=== PATIENT | male | born 1970 | race Caucasian/White ===

== ENCOUNTER 2016-12-20 13:33 | Inpatient (IN) | payer OTHER ==
[2016-12-20 16:32] VITALS: BMI 19.5
--- NOTE | 2016-12-20 19:35 | HP ---
CIWA Score - CIWA Score Nausea/Vomitin Muscle Tremors: 3 Anxiety: 3 Agitation: 3 Paroxysmal Sweats: 2 Orientation: 0-Oriented Tacttile Disturbances: 2-Mild Itch/Numbness/Burn Auditory Disturbances: 2-Mild Harshness/Frighten Visual Disturbances: 2-Mild Sensitivity Headache: 2-Mild CIWA-Ar Total Score: 22 Admission ROS BHS - HPI Chief Complaint: i am here to get better from alcohol and maintain sobriety Allergies/Adverse Reactions: Allergies Allergy/AdvReac Type Severity Reaction Status Date / Time phenytoin Allergy Intermediate Rash Verified 12/20/16 18:33 History of Present Illness: this 46 years old male with alcohol dependence,seeking detox,last treatment [facility]15 to 10/25/15,rehab form 11/22/15 to 12/19/16 nicotine dependence fell off the ladder ,severe spinal cord from c1 to c6,incomplete quadriplegia in 07/03/13 ambulation with own walker hepatitis c mmtp 80 mgs/day ,lat medicated today longest period of sobriety 2 years depression and insomnia Exam Limitations: No Limitations - Ebola screening Have you been sick,other than usual withdrawal symptoms: No - Review of Systems Constitutional: Loss of Appetite, Malaise, Night Sweats, Changes in sleep, Weakness EENT: reports: Tearing, Nose Congestion Respiratory: reports: No Symptoms reported Cardiac: reports: No Symptoms Reported GI: reports: Nausea, Poor Appetite, Abdominal cramping : reports: Incontinence Musculoskeletal: reports: Back Pain, Muscle Pain Integumentary: reports: Dryness Neuro: reports: Headache, Tremors Endocrine: reports: No Symptoms Reported Hematology: reports: No Symptoms Reported Psychiatric: reports: No Sypmtoms Reported (insomnia), Judgement Intact, Mood/ Affect Appropiate, Depressed Patient History - Patient Medical History Hx Anemia: No Hx Asthma: No Hx Chronic Obstructive Pulmonary Disease (COPD): No Hx Cancer: No Hx Cardiac Disorders: No Hx Congestive Heart Failure: No Hx Hypertension: No Hx Hypercholesterolemia: No Hx Pacemaker: No HX Cerebrovascular Accident: No Hx Seizures: Yes (last ) Hx Dementia: No Hx Diabetes: No Hx Gastrointestinal Disorders: No Hx Liver Disease: No Hx Genitourinary Disorders: No Hx Sexually Transmitted Disorders: No Hx Renal Disease (ESRD): No Hx Thyroid Disease: No Hx Human Immunodeficiency Virus (HIV): No (NEGATIVE HX last 2015 ) Hx Hepatitis C: Yes Hx Depression: Yes Hx Suicide Attempt: No Hx Bipolar Disorder: No Hx Schizophrenia: No Other Medical History: insomnia,no suicidal,no homicidal - Patient Surgical History Past Surgical History: Yes Hx Neurologic Surgery: Yes (neck in 2013) Hx Cataract Extraction: No Hx Cardiac Surgery: No Hx Lung Surgery: No Hx Breast Surgery: No Hx Breast Biopsy: No Hx Abdominal Surgery: Yes ([place]) Hx Appendectomy: No Hx Cholecystectomy: No Hx Genitourinary Surgery: No Hx Section: No Hx Orthopedic Surgery: Yes (RIGHT KNEE DUE TO TORN MENISCUS IN 2011) Other Surgical History: Sx R knee meniscus repair 7 wks ago. Anesthesia Reaction: No - PPD History Previous Implant?: Yes Documented Results: Negative w/o proof Implanted On Prior R Admission?: Yes Date: 11/24/15 Results: 0 mm PPD to be Administered?: Yes - Smoking Cessation Smoking history: Current every day smoker Have you smoked in the past 12 months: Yes Aproximately how many cigarettes per day: 15 Cigars Per Day: 0 Hx Chewing Tobacco Use: No Initiated information on smoking cessation: No 'Breaking Loose' booklet given: 12/20/16 - Substance & Tx. History Hx Alcohol Use: Yes Hx Substance Use: Yes Substance Use Type: Alcohol, Cocaine Hx Substance Use Treatment: Yes ([facility] to 10/25/15 ,rhab from 11/22/15 to 12/20/15) - Substances Abused Alcohol Route: Oral Frequency: Daily Amount used: liquor- 1 pint, beer- 2-24oz Age of first use: 8 Date of Last Use: 12/20/16 Cocaine Route: Inhalation Frequency: 1-3 times last 30 days Amount used: 50$ Age of first use: 34 Date of Last Use: 12/16/16 Family Disease History - Family Disease History Family Disease History: Diabetes: Father, Other: Mother (HTN) Admission Physical Exam S - Vital Signs Vital Signs: Vital Signs - 24 hr 12/20/16 16:31 Temperature 97.8 F Pulse Rate 83 Respiratory 18 Rate Blood Pressure 105/60 - Physical General Appearance: Yes: Moderate Distress, Tremorous, Irritable, Anxious HEENTM: Yes: Hearing grossly Normal, Normal ENT Inspection, JENNIFER, Pharynx Normal Respiratory: Yes: Lungs Clear, Normal Breath Sounds, No Respiratory Distress Neck: Yes: Supple (scar in posterior of neck right anterior), Trachea in good position, Other Breast: Yes: Within Normal Limits Cardiology: Yes: Regular Rhythm, Regular Rate, S1, S2, Edema Abdominal: Yes: Within Normal Limits, Normal Bowel Sounds, Non Tender, Flat, Soft, Surgical Scar Genitourinary: Yes: Incontinient Back: Yes: Muscle Spasm Musculoskeletal: Yes: Back pain, Muscle Pain Extremities: Yes: Tremors (partial quadriplegia ambulatiion with walker) Neurological: Yes: Alert (partial qurdriplegia ambulation with walker) Integumentary: Yes: Dry Lymphatic: Yes: Within Normal Limits - Diagnostic (1) Alcohol dependence with uncomplicated withdrawal Current Visit: No Status: Acute (2) Cocaine dependence with withdrawal Current Visit: No Status: Acute (3) Methadone maintenance therapy patient Current Visit: No Status: Acute (4) 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 Current Visit: No Status: Chronic (5) Incontinence Current Visit: No Status: Chronic (6) Nicotine dependence Current Visit: No Status: Chronic Qualifiers: Nicotine product type: cigarettes Substance use status: uncomplicated Qualified Code(s): F17.210 - Nicotine dependence, cigarettes, uncomplicated (7) Seizure disorder Current Visit: No Status: Chronic Comment: on gabapentin (8) Walker as ambulation aid Current Visit: Yes Status: Acute Cleared for Admission [facility] - Detox or Rehab [facility] Level of Care: Medically Managed Detox Regimen/Protocol: Librium [facility] Breath Alcohol Content Breath Alcohol Content: 0.214 Urine Drug Screen - Results Drug Screen Negative: No Urine Drug Screen Results: EMELINA-Cocaine, MTD-Methadone
[2016-12-20] MEDS ORDERED: ACETAMINOPHEN 325 MG TABLET (FP) PO PRN (20:02)
[2016-12-20] MEDS ORDERED: LOPERAMIDE HCL 2 MG CAPSULE PO PRN (20:02)
[2016-12-20] MEDS ORDERED: chlordiazePOXIDE HCL 25 MG CAPSULE PO ONE (20:02)
[2016-12-20] MEDS ORDERED: chlordiazePOXIDE HCL 25 MG CAPSULE PO PRN (20:02)
[2016-12-20] MEDS ORDERED: NICOTINE POLACRILEX 2 MG GUM BUC PRN (20:02)
[2016-12-20] MEDS ORDERED: IBUPROFEN 400 MG TABLET (FP) PO PRN (20:02)
[2016-12-20] MEDS ORDERED: guaiFENesin/D-METHORPHAN HB 10 ML UNIT-DOSE CUPS PO PRN (20:02)
[2016-12-20] MEDS ORDERED: diphenhydrAMINE HCL 50 MG CAPSULE PO PRN (20:02)
[2016-12-20] MEDS ORDERED: P-EPHED 60MG/TRIPROLIDI 2.5MG TABLET PO PRN (20:02)
[2016-12-20] MEDS ORDERED: MAGNESIUM CITRATE 300 ML BOTTLE PO PRN (20:02)
[2016-12-20] MEDS ORDERED: MENTHOL/PHENOL 1 EACH UD MM PRN (20:02)
[2016-12-20] MEDS ORDERED: MAGNESIUM HYDROX 2400MG/30ML ORAL SUSPENSION 30 ML CUP PO PRN (20:02)
[2016-12-20] MEDS ORDERED: hydrOXYzine PAMOATE 25 MG CAPSULE (FP) PO PRN (20:02)
[2016-12-20] MEDS ORDERED: MAG HYDROX/AL HYDROX/SIMETH 30 ML UNIT-DOSE CUP PO PRN (20:02)
[2016-12-20] MEDS: NICOTINE 21 MG/24 HOURS TOPICAL PATCH TD SCH (21:00)
[2016-12-20] MEDS: GABAPENTIN 300 MG CAPSULE (FP) PO SCH (22:48)
[2016-12-20] MEDS: THIAMINE HCL 100 MG TABLET (FP) PO SCH (22:48)
[2016-12-20] MEDS: chlordiazePOXIDE HCL 25 MG CAPSULE PO SCH (22:49)
[2016-12-20] MEDS: DOCUSATE SODIUM 100 MG CAPSULE (FP) PO SCH (22:49)
[2016-12-20] MEDS: BACLOFEN 10 MG TABLET (FP) PO SCH (22:55)
[2016-12-21 01:41] LABS: URINE APPEARANCE CLEAR; URINE BILIRUBIN NEGATIVE (NEGATIVE); URINE BLOOD NEGATIVE (NEGATIVE); URINE COLOR COLORLESS; URINE GLUCOSE (UA) NEGATIVE (NEGATIVE); URINE KETONE NEGATIVE (NEGATIVE); URINE LEUK ESTERASE NEGATIVE (NEGATIVE); URINE NITRITE NEGATIVE (NEGATIVE); URINE PROTEIN NEGATIVE (NEGATIVE); URINE UROBILINOGEN NEGATIVE mg/dL (0.2-1.0)
[2016-12-21] MEDS: chlordiazePOXIDE HCL 25 MG CAPSULE PO SCH ×4 (06:32→22:25)
[2016-12-21] MEDS: DOCUSATE SODIUM 100 MG CAPSULE (FP) PO SCH ×3 (06:32→22:25)
[2016-12-21] MEDS: GABAPENTIN 300 MG CAPSULE (FP) PO SCH ×3 (06:33→22:25)
[2016-12-21] MEDS: FERROUS SO4 325 MG TABLET (FP) PO SCH ×3 (08:28→17:22)
[2016-12-21 10:39] LABS: MCH 35.5 pg (25.7-33.7); MCHC 35.5 g/dl (32.0-35.9); MEAN PLT VOLUME 8.6 fl (7.5-11.1); PLATELET COUNT 161 K/MM3 (134-434); RDW 14.9 % (11.9-15.9); WHITE BLOOD COUNT 4.4 K/mm3 (4.0-10.0)
[2016-12-21] MEDS: BACLOFEN 10 MG TABLET (FP) PO SCH ×2 (10:40→22:25)
[2016-12-21] MEDS: NICOTINE 21 MG/24 HOURS TOPICAL PATCH TD SCH (10:42)
[2016-12-21] MEDS: PRENATAL VITAMINS W/ FOLIC ACID TABLET (FP) PO SCH (10:42)
[2016-12-21 10:44] LABS: ALBUMIN 2.8 g/dl (3.4-5.0); ANION GAP 6 (8-16); BILIRUBIN,TOTAL 0.8 mg/dL (0.2-1.0); CALCIUM 8.2 mg/dL (8.5-10.1); CO2 29 mmol/L (21-32); CREATININE 0.5 mg/dL (0.7-1.3); GLUCOSE,RANDOM 93 mg/dL (74-106); SGOT/AST 33 U/L (15-37); SGPT/ALT 20 U/L (12-78)
[2016-12-21 10:45] LABS: ALK PHOS 99 U/L (45-117)
[2016-12-21] MEDS ORDERED: METHADONE HCL 40 MG DISPERSABLE TABLET PO ONE (10:45)
--- NOTE | 2016-12-21 17:22 | PN ---
[facility] CIWA - CIWA Score Nausea/Vomitin-Mild Nausea/No Vomiting Muscle Tremors: 4-Moderate,w/Arms Extend Anxiety: 4-Mod. Anxious/Guarded Agitation: 3 Paroxysmal Sweats: 3 Orientation: 0-Oriented Tacttile Disturbances: 2-Mild Itch/Numbness/Burn Auditory Disturbances: 0-None Visual Disturbances: 0-None Headache: 0-None Present CIWA-Ar Total Score: 17 BHS Progress Note (SOAP) Subjective: Anxiety,tremors,sweating,interrupted sleep,restless Objective: 12/21/16 17:21 Vital Signs - 8 hr 12/21/16 12/21/16 09:47 14:11 Temperature 97.3 F L 97.2 F L Pulse Rate 76 71 Respiratory 18 18 Rate Blood Pressure 122/68 147/83 Laboratory Last Values WBC 4.4 K/mm3 (4.0-10.0) 12/21/16 08:00 RBC 3.54 M/mm3 (4.00-5.60) L 12/21/16 08:00 Hgb 12.6 GM/dL (11.7-16.9) D 12/21/16 08:00 Hct 35.5 % (35.4-49) 12/21/16 08:00 MCV 100.0 fl (80-96) H 12/21/16 08:00 MCH 35.5 pg (25.7-33.7) H D 12/21/16 08:00 MCHC 35.5 g/dl (32.0-35.9) 12/21/16 08:00 RDW 14.9 % (11.9-15.9) 12/21/16 08:00 Plt Count 161 K/MM3 (134-434) 12/21/16 08:00 MPV 8.6 fl (7.5-11.1) D 12/21/16 08:00 Sodium 143 mmol/L (136-145) 12/21/16 08:00 Potassium 4.2 mmol/L (3.5-5.1) 12/21/16 08:00 Chloride 108 mmol/L (98-107) H 12/21/16 08:00 Carbon Dioxide 29 mmol/L (21-32) 12/21/16 08:00 Anion Gap 6 (8-16) L 12/21/16 08:00 BUN 13 mg/dL (7-18) D 12/21/16 08:00 Creatinine 0.5 mg/dL (0.7-1.3) L 12/21/16 08:00 Creat Clearance w eGFR > 60 (>60) 12/21/16 08:00 Random Glucose 93 mg/dL (74-106) 12/21/16 08:00 Calcium 8.2 mg/dL (8.5-10.1) L 12/21/16 08:00 Total Bilirubin 0.8 mg/dL (0.2-1.0) D 12/21/16 08:00 AST 33 U/L (15-37) D 12/21/16 08:00 ALT 20 U/L (12-78) D 12/21/16 08:00 Alkaline Phosphatase 99 U/L (45-117) D 12/21/16 08:00 Total Protein 6.0 g/dl (6.4-8.2) L 12/21/16 08:00 Albumin 2.8 g/dl (3.4-5.0) L D 12/21/16 08:00 Urine Color Colorless 12/20/16 22:50 Urine Appearance Clear 12/20/16 22:50 Urine pH 5.0 (5.0-8.0) 12/20/16 22:50 Ur Specific [place] <= 1.005 (1.005-1.025) 12/20/16 22:50 Urine Protein Negative (NEGATIVE) 12/20/16 22:50 Urine Glucose (UA) Negative (NEGATIVE) 12/20/16 22:50 Urine Ketones Negative (NEGATIVE) 12/20/16 22:50 Urine Blood Negative (NEGATIVE) 12/20/16 22:50 Urine Nitrite Negative (NEGATIVE) 12/20/16 22:50 Urine Bilirubin Negative (NEGATIVE) 12/20/16 22:50 Urine Urobilinogen Negative mg/dL (0.2-1.0) 12/20/16 22:50 Ur Leukocyte Esterase Negative (NEGATIVE) 12/20/16 22:50 RPR Titer Nonreactive (NONREACTIVE) 12/21/16 08:00 labs noted Assessment: 12/21/16 17:21 Withdrawal sx. Plan: Continue detox
--- NOTE | 2016-12-21 19:31 | CONSULT ---
[facility] Psychiatric Consult - Data Date of interview: 12/21/16 Admission source: [facility] Identifying data: This is a 46 year old male who is unemployed and on SSI, residing with his parents, with history of alcohol,cocaine dependence comrbid Bipolar disorder Substance Abuse History: Patient reports age at first use was 8, he drinks liqour 1 pint daily and beer 2-24 oz. Smokes cigarettes 15 a day. Medical History: Acid reflux, seizure, Hep C, Right knee meniscus repair, partial quadriplegia at c5-6 level,ambulates with walker. Psychiatric History: Patient reports was diagnosed with Bipolar disorder, first psychiatric hospitalization at age of 29 due to suicidal thoughts and feeling depressed, admitted to [facility], reports 3 subsequent psychiatric hsopiatlizations with lats in 2010 at [facility]. He currently on Prozac 60 mg po daily and Remeron 15 mg po hs. States he had not been taking medication since was using, about a week. Physical/Sexual Abuse/Trauma History: Denies Mental Status Exam - Mental Status Exam Alert and Oriented to: Time, Place, Person Cognitive Function: Grossly Intact Mood: Sad, Anxious Affect: Mood Congruent Patient Behavior: Cooperative Speech Pattern: Appropriate Voice Loudness: Normal Thought Process: Goal Oriented Thought Disorder: Not Present Hallucinations: Denies Suicidal Ideation: Denies Homicidal Ideation: Denies Insight/Judgement: Fair Sleep: Fair Appetite: Fair Gait/Station: Other (ambulates with walker.) Psychiatric Findings - Problem List ([place] 1, 2,3) (1) Bipolar I disorder with depression Current Visit: No Status: Acute (2) Alcohol dependence, continuous Current Visit: No Status: Acute (3) Cocaine dependence with withdrawal Current Visit: No Status: Acute - Initial Treatment Plan Initial Treatment Plan: will continue his medications.
[2016-12-21] MEDS: MIRTAZAPINE 15 MG TABLET (FP) PO SCH (22:25)
[2016-12-21] MEDS: THIAMINE HCL 100 MG TABLET (FP) PO SCH (22:25)
[2016-12-22] MEDS: METHADONE HCL 40 MG DISPERSABLE TABLET PO SCH (07:05)
[2016-12-22] MEDS: DOCUSATE SODIUM 100 MG CAPSULE (FP) PO SCH ×3 (07:06→23:07)
[2016-12-22] MEDS: chlordiazePOXIDE HCL 25 MG CAPSULE PO SCH ×3 (07:08→16:47)
[2016-12-22] MEDS: GABAPENTIN 300 MG CAPSULE (FP) PO SCH ×3 (07:08→23:06)
[2016-12-22] MEDS: FERROUS SO4 325 MG TABLET (FP) PO SCH ×3 (07:55→16:47)
[2016-12-22] MEDS: FLUoxetine HCL 20 MG CAPSULE (FP) PO SCH (10:50)
[2016-12-22] MEDS: PRENATAL VITAMINS W/ FOLIC ACID TABLET (FP) PO SCH (10:50)
[2016-12-22] MEDS: NICOTINE 21 MG/24 HOURS TOPICAL PATCH TD SCH (10:50)
[2016-12-22] MEDS: BACLOFEN 10 MG TABLET (FP) PO SCH ×2 (10:50→23:09)
[2016-12-22] MEDS ORDERED: BACITRACIN 0.9 GM PACKET TP ONE (16:19)
--- NOTE | 2016-12-22 16:19 | PN ---
S CIWA - CIWA Score Nausea/Vomitin-No Nausea/No Vomiting Muscle Tremors: 4-Moderate,w/Arms Extend Anxiety: 3 Agitation: 3 Paroxysmal Sweats: 3 Orientation: 0-Oriented Tacttile Disturbances: 0-None Auditory Disturbances: 0-None Visual Disturbances: 0-None Headache: 0-None Present CIWA-Ar Total Score: 13 BHS Progress Note (SOAP) Subjective: Tremors,anxiety,sweating,restless. C/O infected sweat glands rt. axilla Objective: 12/22/16 16:17 Vital Signs - 8 hr 12/22/16 12/22/16 10:00 13:45 Temperature 97.0 F L 98.1 F Pulse Rate 85 80 Respiratory 18 20 Rate Blood Pressure 98/61 96/49 Laboratory Last Values WBC 4.4 K/mm3 (4.0-10.0) 12/21/16 08:00 RBC 3.54 M/mm3 (4.00-5.60) L 12/21/16 08:00 Hgb 12.6 GM/dL (11.7-16.9) D 12/21/16 08:00 Hct 35.5 % (35.4-49) 12/21/16 08:00 MCV 100.0 fl (80-96) H 12/21/16 08:00 MCH 35.5 pg (25.7-33.7) H D 12/21/16 08:00 MCHC 35.5 g/dl (32.0-35.9) 12/21/16 08:00 RDW 14.9 % (11.9-15.9) 12/21/16 08:00 Plt Count 161 K/MM3 (134-434) 12/21/16 08:00 MPV 8.6 fl (7.5-11.1) D 12/21/16 08:00 Sodium 143 mmol/L (136-145) 12/21/16 08:00 Potassium 4.2 mmol/L (3.5-5.1) 12/21/16 08:00 Chloride 108 mmol/L (98-107) H 12/21/16 08:00 Carbon Dioxide 29 mmol/L (21-32) 12/21/16 08:00 Anion Gap 6 (8-16) L 12/21/16 08:00 BUN 13 mg/dL (7-18) D 12/21/16 08:00 Creatinine 0.5 mg/dL (0.7-1.3) L 12/21/16 08:00 Creat Clearance w eGFR > 60 (>60) 12/21/16 08:00 Random Glucose 93 mg/dL (74-106) 12/21/16 08:00 Calcium 8.2 mg/dL (8.5-10.1) L 12/21/16 08:00 Total Bilirubin 0.8 mg/dL (0.2-1.0) D 12/21/16 08:00 AST 33 U/L (15-37) D 12/21/16 08:00 ALT 20 U/L (12-78) D 12/21/16 08:00 Alkaline Phosphatase 99 U/L (45-117) D 12/21/16 08:00 Total Protein 6.0 g/dl (6.4-8.2) L 12/21/16 08:00 Albumin 2.8 g/dl (3.4-5.0) L D 12/21/16 08:00 Urine Color Colorless 12/20/16 22:50 Urine Appearance Clear 12/20/16 22:50 Urine pH 5.0 (5.0-8.0) 12/20/16 22:50 Ur Specific [place] <= 1.005 (1.005-1.025) 12/20/16 22:50 Urine Protein Negative (NEGATIVE) 12/20/16 22:50 Urine Glucose (UA) Negative (NEGATIVE) 12/20/16 22:50 Urine Ketones Negative (NEGATIVE) 12/20/16 22:50 Urine Blood Negative (NEGATIVE) 12/20/16 22:50 Urine Nitrite Negative (NEGATIVE) 12/20/16 22:50 Urine Bilirubin Negative (NEGATIVE) 12/20/16 22:50 Urine Urobilinogen Negative mg/dL (0.2-1.0) 12/20/16 22:50 Ur Leukocyte Esterase Negative (NEGATIVE) 12/20/16 22:50 RPR Titer Nonreactive (NONREACTIVE) 12/21/16 08:00 labs noted Assessment: 12/22/16 16:18 Withdrawal sx. Plan: Continue detox
[2016-12-22] MEDS: AMOX TR/POT CLAV 875MG/125MG TABLETS (FP) PO SCH (16:46)
[2016-12-22] MEDS: THIAMINE HCL 100 MG TABLET (FP) PO SCH (23:07)
[2016-12-22] MEDS: BACITRACIN 0.9 GM PACKET TP SCH (23:07)
[2016-12-22] MEDS: MIRTAZAPINE 15 MG TABLET (FP) PO SCH (23:09)
[2016-12-22] MEDS: chlordiazePOXIDE 5 MG CAPSULE PO SCH (23:09)
[2016-12-23] MEDS: chlordiazePOXIDE 5 MG CAPSULE PO SCH ×3 (06:04→17:55)
[2016-12-23] MEDS: METHADONE HCL 40 MG DISPERSABLE TABLET PO SCH (06:04)
[2016-12-23] MEDS: DOCUSATE SODIUM 100 MG CAPSULE (FP) PO SCH ×3 (06:04→23:02)
[2016-12-23] MEDS: GABAPENTIN 300 MG CAPSULE (FP) PO SCH ×3 (06:05→22:30)
[2016-12-23] MEDS: AMOX TR/POT CLAV 875MG/125MG TABLETS (FP) PO SCH ×2 (07:26→18:09)
[2016-12-23] MEDS: FERROUS SO4 325 MG TABLET (FP) PO SCH ×3 (07:26→18:09)
--- NOTE | 2016-12-23 10:00 | EKG ---
Test Reason : Blood Pressure : / mmHG Vent. Rate : 061 BPM Atrial Rate : 061 BPM P-R Int : 150 ms QRS Dur : 122 ms QT Int : 424 ms P-R-T Axes : 079 069 064 degrees QTc Int : 426 ms NORMAL SINUS RHYTHM RIGHT BUNDLE BRANCH BLOCK ABNORMAL ECG NO PREVIOUS ECGS AVAILABLE Confirmed by PAYAL NEIL, OTTO ([id number]) on 12/23/2016 9:59:13 AM Referred By: Confirmed By:OTTO MOE MD
--- NOTE | 2016-12-23 10:11 | PN ---
S Progress Note (SOAP) Subjective: ALERT,IRRITABLE,ANXIOUS,INTERRUPTED SLEEP,OLECRANON BURSA LEFT 3X3 CMS ON AND OFF Objective: 12/23/16 10:10 Vital Signs Temperature 97.2 F L 12/23/16 09:51 Pulse Rate 90 12/23/16 09:51 Respiratory Rate 20 12/23/16 09:51 Blood Pressure 148/92 12/23/16 09:51 O2 Sat by Pulse Oximetry (%) Assessment: 12/23/16 10:10 WITHDRAWAL SYMPTOM Plan: CONTINUE DETOX,X RAY LEFT ELBOW
[2016-12-23] MEDS: PRENATAL VITAMINS W/ FOLIC ACID TABLET (FP) PO SCH (10:26)
[2016-12-23] MEDS: BACITRACIN 0.9 GM PACKET TP SCH ×2 (10:26→22:30)
[2016-12-23] MEDS: BACLOFEN 10 MG TABLET (FP) PO SCH ×2 (10:26→22:30)
[2016-12-23] MEDS: NICOTINE 21 MG/24 HOURS TOPICAL PATCH TD SCH (10:27)
[2016-12-23] MEDS: FLUoxetine HCL 20 MG CAPSULE (FP) PO SCH (10:27)
[2016-12-23] MEDS: THIAMINE HCL 100 MG TABLET (FP) PO SCH (22:30)
[2016-12-23] MEDS: chlordiazePOXIDE HCL 10 MG CAPSULE PO SCH (22:30)
[2016-12-23] MEDS: MIRTAZAPINE 15 MG TABLET (FP) PO SCH (23:49)
[2016-12-24] MEDS: METHADONE HCL 40 MG DISPERSABLE TABLET PO SCH (05:45)
[2016-12-24] MEDS: chlordiazePOXIDE HCL 10 MG CAPSULE PO SCH (05:45)
[2016-12-24] MEDS: GABAPENTIN 300 MG CAPSULE (FP) PO SCH (05:45)
[2016-12-24] MEDS: DOCUSATE SODIUM 100 MG CAPSULE (FP) PO SCH (05:46)
[2016-12-24 06:09] VITALS: BP 131/78; PULSE 116; TEMP 100.2
[2016-12-24] MEDS: FERROUS SO4 325 MG TABLET (FP) PO SCH (07:33)
[2016-12-24] MEDS: AMOX TR/POT CLAV 875MG/125MG TABLETS (FP) PO SCH (07:33)
--- NOTE | 2016-12-24 09:16 | DS ---
[facility] Detox Discharge Summary Admission Date: 12/20/16 Discharge Date: 12/24/16 - History Additional Comments: FOLLOW UP WITH AFTER CARE PROGRAM ARRANGEMENT Pertinent Past History: METHADONE MAINTENANCE THERAPY PATIENT INCOMPLETE QUADRIPLEGIA AT C5 C6 LEVEL INCONTINENEC NICOTINE DEPENDENCE SEIZURE DISORDER WALKER AMBULATORY AIDS MARCO CRUZ LEFT - Physical Exam Results Vital Signs: Vital Signs Temperature 100.2 F H 12/24/16 06:08 Pulse Rate 116 H 12/24/16 06:08 Respiratory Rate 20 12/24/16 06:08 Blood Pressure 131/78 12/24/16 06:08 O2 Sat by Pulse Oximetry (%) Pertinent Admission Physical Exam Findings: WITHDRAWAL SYMPTOM - Medication Discharge Medications: Ambulatory Orders Fluoxetine HCl [Prozac -] 60 mg PO DAILY 04/28/15 Fluoxetine HCl [Prozac -] 60 mg PO DAILY #60 capsule 12/19/15 Mirtazapine [Remeron -] 15 mg PO HS #30 tablet 12/19/15 Baclofen [Lioresal -] 10 mg PO BID #30 tablet 12/20/15 Docusate Sodium [Colace -] 100 mg PO TID #90 capsule 12/20/15 Ferrous Sulfate [Feosol] 325 mg PO TIDCM #90 ud 12/20/15 Sennosides [Senna -] 1 tab PO HS #30 tablet 12/20/15 Gabapentin [Neurontin -] 600 mg PO TID #90 capsule 12/22/15 Fluoxetine HCl [Prozac -] 60 mg PO DAILY #30 tab 12/21/16 Mirtazapine [Remeron -] 15 mg PO HS #30 tablet 12/21/16 - Diagnosis (1) Alcohol dependence with uncomplicated withdrawal Current Visit: No Status: Acute (2) Cocaine dependence with withdrawal Current Visit: No Status: Acute (3) Methadone maintenance therapy patient Current Visit: No Status: Acute (4) 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 Current Visit: No Status: Chronic (5) Incontinence Current Visit: No Status: Chronic (6) Nicotine dependence Current Visit: No Status: Chronic Qualifiers: Nicotine product type: cigarettes Substance use status: uncomplicated Qualified Code(s): F17.210 - Nicotine dependence, cigarettes, uncomplicated (7) Seizure disorder Current Visit: No Status: Chronic (8) Walker as ambulation aid Current Visit: Yes Status: Acute (9) Weight loss Current Visit: Yes Status: Acute
[2016-12-24] MEDS: PRENATAL VITAMINS W/ FOLIC ACID TABLET (FP) PO SCH (09:54)
[2016-12-24] MEDS: FLUoxetine HCL 20 MG CAPSULE (FP) PO SCH (09:54)
[2016-12-24] MEDS: BACITRACIN 0.9 GM PACKET TP SCH (09:54)
[2016-12-24] MEDS: BACLOFEN 10 MG TABLET (FP) PO SCH (09:54)
== END 2016-12-24 11:07 | disposition home or self-care (01) | DRG 773 ==
LOC: YASAS 13:33 → Y6N 18:45
PROVIDERS: ADMIT Internal Medicine; ATTEND Surgery
PROC: HZ2ZZZZ Detoxification Services for Substance Abuse Treatment (ICD-10-PCS; principal; 2016-12-24)
DX: F11.20 Opioid dependence, uncomplicated (principal); F10.230 Alcohol dependence with withdrawal, uncomplicated; F14.20 Cocaine dependence, uncomplicated; F17.210 Nicotine dependence, cigarettes, uncomplicated; F31.89 Other bipolar disorder; G82.54 Quadriplegia, C5-C7 incomplete; M25.429 Effusion, unspecified elbow; R26.89 Other abnormalities of gait and mobility; Z99.89 Dependence on other enabling machines and devices; R63.4 Abnormal weight loss; Z68.1 Body mass index [BMI] 19.9 or less, adult
CPT/HCPCS: 36415; 73070-TC-LT; 80053; 81003; 85027; 86593; 93005; 93010; J0475

== ENCOUNTER 2016-12-27 16:37 | Inpatient (IN) | payer OTHER ==
--- NOTE | 2016-12-27 21:32 | HP ---
Admission ROS [facility] Chief Complaint: REHAB SERVICES Allergies/Adverse Reactions: Allergies Allergy/AdvReac Type Severity Reaction Status Date / Time phenytoin Allergy Intermediate Rash Verified 12/27/16 19:36 History of Present Illness: 46 Y.O. MAN WITH A HISTORY OF DRUB AND ALCOHOL DEPENDENCE IS HERE SEEKING REHAB SERVICES. HE JUST COMPLETED HERE ON 12/24/16. CURRENTLY ENROLLED IN A MMTP. HE LONGEST PERIOD OF SOBRIETY HAS BEEN 3 YEARS. Exam Limitations: Physical Impairment (AMBULATES THE USE OF A ROLLATOR) - Ebola screening Have you traveled outside of the country in the last 21 days: No (N) Have you had contact with anyone from an Ebola affected area: No Have you been sick,other than usual withdrawal symptoms: No Do you have a fever: No - Review of Systems Constitutional: Loss of Appetite, Unintentional Wgt. Loss EENT: reports: No Symptoms Reported Respiratory: reports: No Symptoms reported Cardiac: reports: No Symptoms Reported GI: reports: No Symptoms Reported : reports: No Symptoms Reported Musculoskeletal: reports: Other (INCOMPLETE QUADRIPLEGIC) Integumentary: reports: Bruising (RIGHT ELBOW) Neuro: reports: No Symptoms reported Endocrine: reports: No Symptoms Reported Hematology: reports: No Symptoms Reported Psychiatric: reports: Orientated x3, Depressed Other Systems: Reviewed and Negative Patient History - Patient Medical History Hx Anemia: No Hx Asthma: No Hx Chronic Obstructive Pulmonary Disease (COPD): No Hx Cancer: No Hx Cardiac Disorders: No Hx Congestive Heart Failure: No Hx Hypertension: No Hx Hypercholesterolemia: No Hx Pacemaker: No HX Cerebrovascular Accident: No Hx Seizures: Yes (last 2007) Hx Dementia: No Hx Diabetes: No Hx Gastrointestinal Disorders: No Hx Liver Disease: No Hx Genitourinary Disorders: No Hx Sexually Transmitted Disorders: No Hx Renal Disease (ESRD): No Hx Thyroid Disease: No Hx Human Immunodeficiency Virus (HIV): No (NEGATIVE HX last 2015 ) Hx Hepatitis C: Yes Hx Depression: Yes Hx Suicide Attempt: No Hx Bipolar Disorder: No Hx Schizophrenia: No - Patient Surgical History Past Surgical History: Yes Hx Neurologic Surgery: Yes (neck in 2013) Hx Cataract Extraction: No Hx Cardiac Surgery: No Hx Lung Surgery: No Hx Breast Surgery: No Hx Breast Biopsy: No Hx Abdominal Surgery: Yes [place] Hx Appendectomy: No Hx Cholecystectomy: No Hx Genitourinary Surgery: No Hx Section: No Hx Orthopedic Surgery: Yes (RIGHT KNEE DUE TO TORN MENISCUS IN 2011) Other Surgical History: Sx R knee meniscus repair 7 wks ago. Anesthesia Reaction: No - PPD History Previous Implant?: Yes Documented Results: Negative w/proof Implanted On Prior [facility] Admission?: Yes Date: 11/24/15 Results: 0 mm PPD to be Administered?: No - Reproductive History Patient is a Female of Child Bearing Age (11 -55 yrs old): No - Smoking Cessation Smoking history: Current every day smoker Have you smoked in the past 12 months: Yes Aproximately how many cigarettes per day: 15 Cigars Per Day: 0 Hx Chewing Tobacco Use: No Initiated information on smoking cessation: Yes 'Breaking Loose' booklet given: 12/27/16 - Substance & Tx. History Hx Alcohol Use: Yes Hx Substance Use: Yes Substance Use Type: Alcohol Hx Substance Use Treatment: Yes (DETOX @ [facility] ON 12/2016) - Substances Abused Alcohol Frequency: Daily Amount used: 1 PINT OF LIQUOR Age of first use: 10 Date of Last Use: 12/20/16 Family Disease History - Family Disease History Family Disease History: Diabetes: Father, Other: Mother (HTN) Admission Physical Exam S - Vital Signs Vital Signs: Vital Signs - 24 hr 12/27/16 17:47 Temperature 98 F Pulse Rate 90 Respiratory 16 Rate Blood Pressure 100/52 - Physical General Appearance: Yes: Disheveled HEENTM: Yes: Hearing grossly Normal, Normal Voice Respiratory: Yes: Chest Non-Tender, Lungs Clear, Normal Breath Sounds, No Respiratory Distress, No Accessory Muscle Use Neck: Yes: No masses,lesions,Nodules, Trachea in good position Breast: Yes: Breast Exam Deferred Cardiology: Yes: Regular Rhythm, Regular Rate Abdominal: Yes: Normal Bowel Sounds, Non Tender, Flat, Soft Genitourinary: Yes: Other (NO COMPLAINTS REPORTED) Back: Yes: Normal Inspection Musculoskeletal: Yes: Back pain, Muscle Pain, Muscle weakness, Other ( Incomplete quadriplegic; uses a walker to ambulate) Extremities: Yes: Normal Capillary Refill, Normal Inspection, Normal Range of Motion Neurological: Yes: merchandiser seasonal II-XII NML intact, Alert, Motor Strength 5/5, Normal Mood /Affect, Normal Response Integumentary: Yes: Normal Color, Dry, Warm Lymphatic: Yes: Within Normal Limits - Diagnostic (1) Alcohol dependence with uncomplicated withdrawal Current Visit: Yes Status: Chronic (2) Cocaine dependence with withdrawal Current Visit: Yes Status: Chronic (3) Methadone maintenance therapy patient Current Visit: Yes Status: Chronic (4) Walker as ambulation aid Current Visit: Yes Status: Chronic (5) Weight loss Current Visit: Yes Status: Chronic (6) Cannabis abuse Current Visit: Yes Status: Chronic (7) GERD (gastroesophageal reflux disease) Current Visit: Yes Status: Chronic Qualifiers: Esophagitis presence: without esophagitis Qualified Code(s): K21.9 - Gastro-esophageal reflux disease without esophagitis (8) 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 Current Visit: Yes Status: Chronic (9) Nicotine dependence Current Visit: Yes Status: Chronic Qualifiers: Nicotine product type: cigarettes Substance use status: uncomplicated Qualified Code(s): F17.210 - Nicotine dependence, cigarettes, uncomplicated Cleared for Admission [facility] - Detox or Rehab [facility] Level of Care: Observation Bed Claeared for Rehab Admission: Yes [facility] Breath Alcohol Content Breath Alcohol Content: 0 Urine Drug Screen - Results Drug Screen Negative: No Urine Drug Screen Results: EMELINA-Cocaine, OPI-Opiates, BZO-Benzodiazepines, MTD- Methadone
[2016-12-27] MEDS ORDERED: guaiFENesin/D-METHORPHAN HB 10 ML UNIT-DOSE CUPS PO PRN (21:41)
[2016-12-27] MEDS ORDERED: MENTHOL/PHENOL 1 EACH UD MM PRN (21:41)
[2016-12-27] MEDS ORDERED: MAGNESIUM HYDROX 2400MG/30ML ORAL SUSPENSION 30 ML CUP PO PRN (21:41)
[2016-12-27] MEDS ORDERED: LOPERAMIDE HCL 2 MG CAPSULE PO PRN (21:41)
[2016-12-27] MEDS ORDERED: P-EPHED 60MG/TRIPROLIDI 2.5MG TABLET PO PRN (21:41)
[2016-12-27] MEDS ORDERED: ACETAMINOPHEN 325 MG TABLET (FP) PO PRN (21:41)
[2016-12-27] MEDS ORDERED: hydrOXYzine PAMOATE 50 MG CAPSULE (FP) PO PRN (21:41)
[2016-12-27] MEDS ORDERED: IBUPROFEN 400 MG TABLET (FP) PO PRN (21:41)
[2016-12-27] MEDS ORDERED: MAGNESIUM CITRATE 300 ML BOTTLE PO PRN (21:41)
[2016-12-27] MEDS ORDERED: MAG HYDROX/AL HYDROX/SIMETH 30 ML UNIT-DOSE CUP PO PRN (21:41)
[2016-12-28] MEDS: BACITRACIN 0.9 GM PACKET TP SCH ×3 (01:43→22:25)
[2016-12-28] MEDS: BACLOFEN 10 MG TABLET (FP) PO SCH ×3 (01:43→22:27)
[2016-12-28] MEDS: DOCUSATE SODIUM 100 MG CAPSULE (FP) PO SCH ×4 (01:43→22:26)
[2016-12-28] MEDS: SENNOSIDES 8.6MG TABLET (FP) PO SCH ×2 (01:44→22:26)
[2016-12-28] MEDS: THIAMINE HCL 100 MG TABLET (FP) PO SCH ×2 (01:44→22:27)
[2016-12-28] MEDS: GABAPENTIN 300 MG CAPSULE (FP) PO SCH ×4 (01:44→22:26)
[2016-12-28] MEDS: AMOX TR/POT CLAV 875MG/125MG TABLETS (FP) PO SCH ×2 (07:35→17:30)
[2016-12-28] MEDS: FERROUS SO4 325 MG TABLET (FP) PO SCH ×3 (07:36→17:40)
[2016-12-28] MEDS: PRENATAL VITAMINS W/ FOLIC ACID TABLET (FP) PO SCH (09:50)
[2016-12-28] MEDS: METHADONE HCL 40 MG DISPERSABLE TABLET PO SCH (09:51)
[2016-12-28] MEDS: NICOTINE 14 MG/24 HOURS TOPICAL PATCH TD SCH (09:51)
[2016-12-28 13:46] LABS: MCH 35.1 pg (25.7-33.7); MCHC 34.6 g/dl (32.0-35.9); MEAN CELL VOLUME 101.4 fl (80-96); MEAN PLT VOLUME 9.2 fl (7.5-11.1); PLATELET COUNT 198 K/MM3 (134-434); RDW 14.5 % (11.9-15.9); WHITE BLOOD COUNT 4.6 K/mm3 (4.0-10.0)
[2016-12-28 13:59] LABS: ALBUMIN 2.9 g/dl (3.4-5.0); ANION GAP 7 (8-16); CALCIUM 8.3 mg/dL (8.5-10.1); CO2 31 mmol/L (21-32); GLUCOSE,RANDOM 170 mg/dL (74-106); SGOT/AST 26 U/L (15-37); SGPT/ALT 18 U/L (12-78)
[2016-12-28 14:02] LABS: ALK PHOS 91 U/L (45-117); BILIRUBIN,TOTAL 0.6 mg/dL (0.2-1.0); CREATININE 0.5 mg/dL (0.7-1.3); TOT PROT 6.5 g/dl (6.4-8.2)
[2016-12-28] MEDS: diphenhydrAMINE HCL 50 MG CAPSULE PO PRN (22:25)
[2016-12-29] MEDS: DOCUSATE SODIUM 100 MG CAPSULE (FP) PO SCH ×3 (05:55→21:58)
[2016-12-29] MEDS: METHADONE HCL 40 MG DISPERSABLE TABLET PO SCH (05:55)
[2016-12-29] MEDS: GABAPENTIN 300 MG CAPSULE (FP) PO SCH ×3 (05:55→21:57)
[2016-12-29] MEDS: FERROUS SO4 325 MG TABLET (FP) PO SCH ×3 (07:27→17:56)
[2016-12-29] MEDS: AMOX TR/POT CLAV 875MG/125MG TABLETS (FP) PO SCH ×2 (07:27→17:55)
--- NOTE | 2016-12-29 08:09 | EKG ---
Test Reason : Blood Pressure : / mmHG Vent. Rate : 067 BPM Atrial Rate : 067 BPM P-R Int : 150 ms QRS Dur : 114 ms QT Int : 426 ms P-R-T Axes : 046 047 058 degrees QTc Int : 450 ms POOR DATA QUALITY, INTERPRETATION MAY BE ADVERSELY AFFECTED SINUS RHYTHM WITH PREMATURE ATRIAL COMPLEXES OTHERWISE NORMAL ECG WHEN COMPARED WITH ECG OF 20-DEC-2016 19:57, PREMATURE ATRIAL COMPLEXES ARE NOW PRESENT RIGHT BUNDLE BRANCH BLOCK IS NO LONGER PRESENT Confirmed by JUAN NEIL, CHUCKY ([id number]) on 12/29/2016 8:09:34 AM Referred By: Confirmed By:CHUCKY MARTINEZ MD
--- NOTE | 2016-12-29 09:55 | PN ---
[facility] Progress Note Note: Psychiatry Attending's loan services professional note : Medications discussed with nurse Jonelle Escalante. Asked to enter orders for prozac + remeron. Chart reviewed.Dr Roblero's note of 12/21/16 :appreciated. Medications verified.Noted low blood pressure. Prozac 60 mg po daily is held today. Remeron 15 mg po hs
[2016-12-29] MEDS ORDERED: FLUoxetine HCL 20 MG CAPSULE (FP) PO SCH (10:00)
[2016-12-29] MEDS: BACITRACIN 0.9 GM PACKET TP SCH ×2 (10:01→21:59)
[2016-12-29] MEDS: PRENATAL VITAMINS W/ FOLIC ACID TABLET (FP) PO SCH (10:01)
[2016-12-29] MEDS: NICOTINE 14 MG/24 HOURS TOPICAL PATCH TD SCH (10:01)
[2016-12-29] MEDS: BACLOFEN 10 MG TABLET (FP) PO SCH ×2 (10:01→21:57)
[2016-12-29] MEDS: THIAMINE HCL 100 MG TABLET (FP) PO SCH (21:57)
[2016-12-29] MEDS: SENNOSIDES 8.6MG TABLET (FP) PO SCH (21:57)
[2016-12-29] MEDS: diphenhydrAMINE HCL 50 MG CAPSULE PO PRN (21:59)
[2016-12-29] MEDS ORDERED: MIRTAZAPINE 15 MG TABLET (FP) PO SCH (22:00)
[2016-12-30] MEDS: GABAPENTIN 300 MG CAPSULE (FP) PO SCH ×3 (06:41→21:45)
[2016-12-30] MEDS: METHADONE HCL 40 MG DISPERSABLE TABLET PO SCH (06:41)
[2016-12-30] MEDS: DOCUSATE SODIUM 100 MG CAPSULE (FP) PO SCH ×3 (06:41→21:45)
[2016-12-30] MEDS: FERROUS SO4 325 MG TABLET (FP) PO SCH ×3 (07:12→16:58)
[2016-12-30] MEDS: AMOX TR/POT CLAV 875MG/125MG TABLETS (FP) PO SCH ×2 (07:12→16:58)
[2016-12-30] MEDS: PRENATAL VITAMINS W/ FOLIC ACID TABLET (FP) PO SCH (10:44)
[2016-12-30] MEDS: BACLOFEN 10 MG TABLET (FP) PO SCH ×2 (10:45→21:45)
[2016-12-30] MEDS: BACITRACIN 0.9 GM PACKET TP SCH ×2 (10:45→21:46)
[2016-12-30] MEDS: NICOTINE 14 MG/24 HOURS TOPICAL PATCH TD SCH (10:45)
--- NOTE | 2016-12-30 14:09 | HP ---
Psychiatrist Admission - Data Date of interview: 12/30/16 Admission source: 6N Identifying data: This is the second 5N inpatient rehabilitation admission for this 46 year old single unmployed male, who is domiciled and supported on SSI. Medical History: Acid reflux, seizure, Hep C, Right knee meniscus repair, partial quadriplegia at c5-6 level,ambulates with, smokes cigarettes 10-15 cigarettes a day. On MMTP 80 mg/daily. Psychiatric History: Patient carries a diagnosis of Bipolar disorder, first psychiatric treatment was at age of 29, states he was suicidal and depressed, admitted to [facility], reports 3 subsequent hospitlizations with most recent in 2010 at [facility]. Non-compliant with aftercare. He currently on Prozac 60 mg po daily and Remeron 15 mg po hs, he continued medications while in detox, however was observed by staff being sedated, will d/ c Remeron and continue Porzac 40 mg po daily. Physical/Sexual Abuse/Trauma History: Denies history of sexual, physical and verbal abuse. Vital Signs: Vital Signs - 24 hr 12/30/16 12/30/16 12/30/16 00:30 03:30 07:35 Temperature 97.4 F L Pulse Rate 82 Respiratory 18 18 18 Rate Blood Pressure 86/60 Allergies/Adverse Reactions: Allergies Allergy/AdvReac Type Severity Reaction Status Date / Time phenytoin Allergy Intermediate Rash Verified 12/28/16 01:35 Date of last physical exam: 12/28/16 Concur with the findings of this exam: Yes - Substance Abuse/Tx History Hx Alcohol Use: Yes (started drinking at age of 8, daily 1 pint of vodka and beer 2 -24 oz.) Hx Substance Use: No Hx Substance Use Treatment: Yes (5N, 3w) - Admission Criteria Previous failed treatment: Yes Poor recovery environment: Yes Comorbidities: Yes Lacks judgement: Yes Mental Status Exam - Mental Status Exam Alert and Oriented to: Time, Place, Person Cognitive Function: Fair Patient Appearance: Well Groomed Mood: Hopeful Affect: Appropriate, Mood Congruent Patient Behavior: Appropriate, Cooperative Speech Pattern: Clear, Appropriate Voice Loudness: Normal Thought Process: Intact, Goal Oriented Thought Disorder: Not Present Hallucinations: Denies Suicidal Ideation: Denies Homicidal Ideation: Denies Insight/Judgement: Fair Sleep: Fair Appetite: Fair Muscle strength/Tone: Moderate Hypotonicity Gait/Station: Other (ambultes with walker.) Psychiatric Findings - Problem List ([place] 1, 2,3) (1) Methadone maintenance therapy patient Current Visit: Yes Status: Chronic (2) Nicotine dependence Current Visit: Yes Status: Chronic Qualifiers: Nicotine product type: cigarettes Substance use status: uncomplicated Qualified Code(s): F17.210 - Nicotine dependence, cigarettes, uncomplicated (3) Walker as ambulation aid Current Visit: Yes Status: Chronic (4) Bipolar I disorder with depression Current Visit: No Status: Acute (5) Alcohol dependence Current Visit: Yes Status: Acute - Initial Treatment Plan Initial Treatment Plan: will d/c Remeron, continue Prozac 40 mg po daily, monitor progress.
[2016-12-30] MEDS: SENNOSIDES 8.6MG TABLET (FP) PO SCH (21:45)
[2016-12-30] MEDS: THIAMINE HCL 100 MG TABLET (FP) PO SCH (21:45)
[2016-12-30] MEDS: diphenhydrAMINE HCL 50 MG CAPSULE PO PRN (21:45)
[2016-12-31] MEDS: GABAPENTIN 300 MG CAPSULE (FP) PO SCH ×3 (06:17→21:44)
[2016-12-31] MEDS: METHADONE HCL 40 MG DISPERSABLE TABLET PO SCH (06:18)
[2016-12-31] MEDS: DOCUSATE SODIUM 100 MG CAPSULE (FP) PO SCH ×3 (06:18→21:44)
[2016-12-31] MEDS: FERROUS SO4 325 MG TABLET (FP) PO SCH ×3 (07:11→16:57)
[2016-12-31] MEDS: AMOX TR/POT CLAV 875MG/125MG TABLETS (FP) PO SCH ×2 (07:11→16:57)
[2016-12-31] MEDS: BACLOFEN 10 MG TABLET (FP) PO SCH ×2 (10:47→21:44)
[2016-12-31] MEDS: BACITRACIN 0.9 GM PACKET TP SCH ×2 (10:47→21:43)
[2016-12-31] MEDS: FLUoxetine HCL 20 MG CAPSULE (FP) PO SCH (10:48)
[2016-12-31] MEDS: NICOTINE 14 MG/24 HOURS TOPICAL PATCH TD SCH (10:48)
[2016-12-31] MEDS: PRENATAL VITAMINS W/ FOLIC ACID TABLET (FP) PO SCH (10:48)
[2016-12-31] MEDS: NICOTINE POLACRILEX 2 MG GUM BC PRN (10:50)
[2016-12-31] MEDS: THIAMINE HCL 100 MG TABLET (FP) PO SCH (21:43)
[2016-12-31] MEDS: SENNOSIDES 8.6MG TABLET (FP) PO SCH (21:44)
[2017-01-01] MEDS: METHADONE HCL 40 MG DISPERSABLE TABLET PO SCH (06:16)
[2017-01-01] MEDS: GABAPENTIN 300 MG CAPSULE (FP) PO SCH ×3 (06:17→22:00)
[2017-01-01] MEDS: DOCUSATE SODIUM 100 MG CAPSULE (FP) PO SCH ×3 (06:17→22:00)
[2017-01-01] MEDS: FERROUS SO4 325 MG TABLET (FP) PO SCH ×3 (07:04→16:52)
[2017-01-01] MEDS: AMOX TR/POT CLAV 875MG/125MG TABLETS (FP) PO SCH ×2 (07:04→16:52)
[2017-01-01] MEDS: NICOTINE 14 MG/24 HOURS TOPICAL PATCH TD SCH (11:01)
[2017-01-01] MEDS: FLUoxetine HCL 20 MG CAPSULE (FP) PO SCH (11:01)
[2017-01-01] MEDS: BACITRACIN 0.9 GM PACKET TP SCH ×2 (11:01→22:00)
[2017-01-01] MEDS: PRENATAL VITAMINS W/ FOLIC ACID TABLET (FP) PO SCH (11:01)
[2017-01-01] MEDS: BACLOFEN 10 MG TABLET (FP) PO SCH ×2 (11:01→21:59)
[2017-01-01] MEDS: diphenhydrAMINE HCL 50 MG CAPSULE PO PRN (22:00)
[2017-01-01] MEDS: SENNOSIDES 8.6MG TABLET (FP) PO SCH (22:00)
[2017-01-01] MEDS: THIAMINE HCL 100 MG TABLET (FP) PO SCH (22:01)
[2017-01-02] MEDS: METHADONE HCL 40 MG DISPERSABLE TABLET PO SCH (06:05)
[2017-01-02] MEDS: GABAPENTIN 300 MG CAPSULE (FP) PO SCH ×3 (06:05→21:32)
[2017-01-02] MEDS: DOCUSATE SODIUM 100 MG CAPSULE (FP) PO SCH ×3 (06:05→21:33)
[2017-01-02] MEDS: FERROUS SO4 325 MG TABLET (FP) PO SCH ×3 (07:02→17:30)
[2017-01-02] MEDS: AMOX TR/POT CLAV 875MG/125MG TABLETS (FP) PO SCH ×2 (07:02→17:30)
[2017-01-02] MEDS: BACITRACIN 0.9 GM PACKET TP SCH ×2 (10:45→21:34)
[2017-01-02] MEDS: NICOTINE 14 MG/24 HOURS TOPICAL PATCH TD SCH (10:45)
[2017-01-02] MEDS: FLUoxetine HCL 20 MG CAPSULE (FP) PO SCH (10:45)
[2017-01-02] MEDS: BACLOFEN 10 MG TABLET (FP) PO SCH ×2 (10:46→21:33)
[2017-01-02] MEDS: PRENATAL VITAMINS W/ FOLIC ACID TABLET (FP) PO SCH (10:46)
[2017-01-02] MEDS: NICOTINE POLACRILEX 2 MG GUM BC PRN (14:44)
[2017-01-02] MEDS: SENNOSIDES 8.6MG TABLET (FP) PO SCH (21:32)
[2017-01-02] MEDS: THIAMINE HCL 100 MG TABLET (FP) PO SCH (21:33)
[2017-01-02] MEDS: diphenhydrAMINE HCL 50 MG CAPSULE PO PRN (21:33)
[2017-01-03] MEDS: DOCUSATE SODIUM 100 MG CAPSULE (FP) PO SCH ×3 (06:11→21:49)
[2017-01-03] MEDS: GABAPENTIN 300 MG CAPSULE (FP) PO SCH ×3 (06:12→21:48)
[2017-01-03] MEDS: METHADONE HCL 40 MG DISPERSABLE TABLET PO SCH (06:12)
[2017-01-03] MEDS: FERROUS SO4 325 MG TABLET (FP) PO SCH ×3 (07:11→16:51)
[2017-01-03] MEDS: AMOX TR/POT CLAV 875MG/125MG TABLETS (FP) PO SCH ×2 (07:12→16:51)
[2017-01-03] MEDS: FLUoxetine HCL 20 MG CAPSULE (FP) PO SCH (10:22)
[2017-01-03] MEDS: PRENATAL VITAMINS W/ FOLIC ACID TABLET (FP) PO SCH (10:22)
[2017-01-03] MEDS: BACLOFEN 10 MG TABLET (FP) PO SCH ×2 (10:22→21:49)
[2017-01-03] MEDS: NICOTINE 14 MG/24 HOURS TOPICAL PATCH TD SCH (10:22)
[2017-01-03] MEDS: BACITRACIN 0.9 GM PACKET TP SCH ×2 (10:22→21:48)
[2017-01-03] MEDS: NICOTINE POLACRILEX 2 MG GUM BC PRN ×2 (10:24→14:23)
[2017-01-03] MEDS: THIAMINE HCL 100 MG TABLET (FP) PO SCH (21:17)
[2017-01-03] MEDS: diphenhydrAMINE HCL 50 MG CAPSULE PO PRN (21:48)
[2017-01-03] MEDS: SENNOSIDES 8.6MG TABLET (FP) PO SCH (22:17)
[2017-01-04] MEDS: METHADONE HCL 40 MG DISPERSABLE TABLET PO SCH (06:09)
[2017-01-04] MEDS: DOCUSATE SODIUM 100 MG CAPSULE (FP) PO SCH ×3 (06:10→21:51)
[2017-01-04] MEDS: GABAPENTIN 300 MG CAPSULE (FP) PO SCH ×3 (06:10→21:51)
[2017-01-04] MEDS: PANTOPRAZOLE 40 MG TABLET (FP) PO SCH (06:11)
[2017-01-04] MEDS: FERROUS SO4 325 MG TABLET (FP) PO SCH ×3 (07:10→16:55)
[2017-01-04] MEDS: AMOX TR/POT CLAV 875MG/125MG TABLETS (FP) PO SCH (07:10)
[2017-01-04] MEDS: BACLOFEN 10 MG TABLET (FP) PO SCH ×2 (10:29→21:51)
[2017-01-04] MEDS: NICOTINE 21 MG/24 HOURS TOPICAL PATCH TD SCH (10:29)
[2017-01-04] MEDS: BACITRACIN 0.9 GM PACKET TP SCH ×2 (10:29→21:52)
[2017-01-04] MEDS: FLUoxetine HCL 20 MG CAPSULE (FP) PO SCH (10:29)
[2017-01-04] MEDS: PRENATAL VITAMINS W/ FOLIC ACID TABLET (FP) PO SCH (10:29)
[2017-01-04] MEDS: NICOTINE POLACRILEX 2 MG GUM BC PRN (10:30)
[2017-01-04] MEDS: THIAMINE HCL 100 MG TABLET (FP) PO SCH (21:50)
[2017-01-04] MEDS: diphenhydrAMINE HCL 50 MG CAPSULE PO PRN (21:51)
[2017-01-04] MEDS: SENNOSIDES 8.6MG TABLET (FP) PO SCH (21:51)
[2017-01-05] MEDS: METHADONE HCL 40 MG DISPERSABLE TABLET PO SCH (06:09)
[2017-01-05] MEDS: DOCUSATE SODIUM 100 MG CAPSULE (FP) PO SCH ×3 (06:10→21:42)
[2017-01-05] MEDS: GABAPENTIN 300 MG CAPSULE (FP) PO SCH ×3 (06:10→21:42)
[2017-01-05] MEDS: PANTOPRAZOLE 40 MG TABLET (FP) PO SCH (06:10)
[2017-01-05] MEDS: FERROUS SO4 325 MG TABLET (FP) PO SCH ×3 (07:26→17:24)
[2017-01-05] MEDS: BACITRACIN 0.9 GM PACKET TP SCH ×2 (10:30→21:43)
[2017-01-05] MEDS: BACLOFEN 10 MG TABLET (FP) PO SCH ×2 (10:30→21:42)
[2017-01-05] MEDS: PRENATAL VITAMINS W/ FOLIC ACID TABLET (FP) PO SCH (10:30)
[2017-01-05] MEDS: FLUoxetine HCL 20 MG CAPSULE (FP) PO SCH (10:30)
[2017-01-05] MEDS: NICOTINE 21 MG/24 HOURS TOPICAL PATCH TD SCH (10:30)
[2017-01-05] MEDS: NICOTINE POLACRILEX 2 MG GUM BC PRN (10:31)
[2017-01-05] MEDS: SENNOSIDES 8.6MG TABLET (FP) PO SCH (21:42)
[2017-01-05] MEDS: diphenhydrAMINE HCL 50 MG CAPSULE PO PRN (21:42)
[2017-01-05] MEDS: THIAMINE HCL 100 MG TABLET (FP) PO SCH (21:42)
[2017-01-06] MEDS: METHADONE HCL 40 MG DISPERSABLE TABLET PO SCH (06:11)
[2017-01-06] MEDS: DOCUSATE SODIUM 100 MG CAPSULE (FP) PO SCH ×3 (06:12→22:07)
[2017-01-06] MEDS: GABAPENTIN 300 MG CAPSULE (FP) PO SCH ×3 (06:12→22:07)
[2017-01-06] MEDS: PANTOPRAZOLE 40 MG TABLET (FP) PO SCH (06:12)
[2017-01-06] MEDS: FERROUS SO4 325 MG TABLET (FP) PO SCH ×3 (07:09→16:57)
[2017-01-06] MEDS: PRENATAL VITAMINS W/ FOLIC ACID TABLET (FP) PO SCH (10:53)
[2017-01-06] MEDS: FLUoxetine HCL 20 MG CAPSULE (FP) PO SCH (10:53)
[2017-01-06] MEDS: BACITRACIN 0.9 GM PACKET TP SCH ×2 (10:53→22:07)
[2017-01-06] MEDS: NICOTINE 21 MG/24 HOURS TOPICAL PATCH TD SCH (10:53)
[2017-01-06] MEDS: BACLOFEN 10 MG TABLET (FP) PO SCH ×2 (10:53→22:07)
[2017-01-06] MEDS: NICOTINE POLACRILEX 2 MG GUM BC PRN (10:55)
[2017-01-06] MEDS: SENNOSIDES 8.6MG TABLET (FP) PO SCH (22:07)
[2017-01-06] MEDS: diphenhydrAMINE HCL 50 MG CAPSULE PO PRN (22:07)
[2017-01-06] MEDS: THIAMINE HCL 100 MG TABLET (FP) PO SCH (22:07)
[2017-01-07] MEDS: GABAPENTIN 300 MG CAPSULE (FP) PO SCH ×3 (06:02→22:10)
[2017-01-07] MEDS: METHADONE HCL 40 MG DISPERSABLE TABLET PO SCH (06:03)
[2017-01-07] MEDS: DOCUSATE SODIUM 100 MG CAPSULE (FP) PO SCH ×3 (06:03→22:10)
[2017-01-07] MEDS: PANTOPRAZOLE 40 MG TABLET (FP) PO SCH (06:03)
[2017-01-07] MEDS: FERROUS SO4 325 MG TABLET (FP) PO SCH ×3 (07:45→16:53)
[2017-01-07] MEDS: NICOTINE 21 MG/24 HOURS TOPICAL PATCH TD SCH (10:19)
[2017-01-07] MEDS: PRENATAL VITAMINS W/ FOLIC ACID TABLET (FP) PO SCH (10:21)
[2017-01-07] MEDS: BACLOFEN 10 MG TABLET (FP) PO SCH ×2 (10:21→22:10)
[2017-01-07] MEDS: FLUoxetine HCL 20 MG CAPSULE (FP) PO SCH (10:21)
[2017-01-07] MEDS: BACITRACIN 0.9 GM PACKET TP SCH ×2 (10:21→22:10)
--- NOTE | 2017-01-07 11:54 | PN ---
Psychiatric Progress Note Vital Signs: Vital Signs Period Temp Pulse Resp BP Sys/Waller Pulse Ox Last 24 Hr 98.3 F 90 16-18 94/68 Date of Session: 01/07/17 Chief Complaint:: Discharge Note HPI: Patient addressing Alcohol Dependence comorbid with Opoid Dependence on Agonist Therapy, Nicotine Dependence and Bipolar Disorder ROS: GERD, Anemia were medically managed Current Medications: Active Medications Generic Name Dose Route Start Last Admin Trade Name Freq PRN Reason Stop Dose Admin Acetaminophen 650 mg 12/27/16 21:41 Tylenol - PO Q4H PRN PAIN Al Hydroxide/Mg Hydroxide 30 ml 12/27/16 21:41 Mylanta Oral Suspension - PO Q6H PRN DYSPEPSIA Bacitracin 0.9 gm 12/27/16 22:15 01/07/17 10:21 Bacitracin - TP Not Given BID MILES Baclofen 10 mg 12/27/16 22:00 01/07/17 10:21 Lioresal - PO 10 mg BID MILES Administration Diphenhydramine HCl 50 mg 12/27/16 21:41 01/06/17 22:07 Benadryl - PO 50 mg HSMR1 PRN Administration INSOMNIA Docusate Sodium 100 mg 12/27/16 22:00 01/07/17 06:03 Colace - PO 100 mg TID MILES Administration Eucalyptus/Menthol/Phenol/Sorbitol 1 each 12/27/16 21:41 Cepastat Lozenge - MM Q4H PRN SORE THROAT Ferrous Sulfate 325 mg 12/28/16 08:00 01/07/17 07:45 Feosol - PO 325 mg TIDCM MILES Administration Fluoxetine HCl 40 mg 12/31/16 10:00 01/07/17 10:21 Prozac - PO 40 mg DAILY MILES Administration Gabapentin 600 mg 12/27/16 22:00 01/07/17 06:02 Neurontin - PO 600 mg TID MILES Administration Guaifenesin 10 ml 12/27/16 21:41 Robitussin Dm - PO Q6H PRN COUGH Hydroxyzine Pamoate 50 mg 12/27/16 21:41 Vistaril - PO Q4H PRN AGITATION Ibuprofen 400 mg 12/27/16 21:41 Motrin - PO Q6H PRN SEVERE PAIN Loperamide HCl 4 mg 12/27/16 21:41 Imodium - PO Q6H PRN DIARRHEA Magnesium Citrate 300 ml 12/27/16 21:41 Citroma - PO Q48H PRN CONSTIPATION Magnesium Hydroxide 30 ml 12/27/16 21:41 Milk Of Magnesia - PO DAILY PRN CONSTIPATION Methadone HCl 80 mg 01/05/17 06:00 01/07/17 06:03 Dolophine - PO 80 mg DAILY@0600 MILES Administration Nicotine 21 mg 01/04/17 10:00 01/07/17 10:19 Nicoderm Patch - TD 21 mg DAILY MILES Administration Nicotine Polacrilex 2 mg 12/27/16 21:41 01/06/17 10:55 Nicorette Gum - BC 2 mg Q2H PRN Administration NICOTINE REPLACEMENT RX Pantoprazole Sodium 40 mg 01/04/17 06:00 01/07/17 06:03 Protonix - PO 40 mg DAILY@0600 MILES Administration Multivit/Folic Acid/Iron 1 tab 12/28/16 10:00 01/07/17 10:21 Vitamins (Sjr) - PO 1 tab DAILY MILES Administration Pseudoephedrine/Triprolidine 1 combo 12/27/16 21:41 Actifed - PO TID PRN NASAL CONGESTION Senna 1 tab 12/27/16 22:00 01/06/17 22:07 Senna - PO 1 tab HS MILES Administration Thiamine HCl 100 mg 12/27/16 22:00 01/06/17 22:07 Vitamin B1 - PO 100 mg HS MILES Administration Current Side Effect: No Lab tests ordered: Yes Lab tests reviewed: Yes Provider note:: Patient will complete this program on 01/08/17. He has met his treatment goals and will continue to address his issues in outpatient treatment at [facility]. Told financial writer that rom his participation in this program, he has learned to stay away from People, Places and Things and not to apple picking supervisor the first one. He responded well to Prozac 40 mg po daily. Scripts for 30 days supply of that medication will be electronically transmitted to [facility] at [address] [place] [address]. He is stable for discharge on 01/08/17 Total face to face time:: 35 Mental Status Exam - Mental Status Exam Alert and Oriented to: Time, Place, Person Cognitive Function: Fair Patient Appearance: Well Groomed Mood: Hopeful, Euthymic Affect: Appropriate Patient Behavior: Cooperative Speech Pattern: Clear Voice Loudness: Normal Thought Process: Intact Thought Disorder: Not Present Hallucinations: Denies Suicidal Ideation: Denies Homicidal Ideation: Denies Insight/Judgement: Fair Sleep: Fair Appetite: Good Muscle strength/Tone: Normal Gait/Station: Normal Psychiatric Treatment Plan - Problem List (1) Alcohol dependence Current Visit: Yes (2) Opioid dependence on agonist therapy Current Visit: Yes (3) Nicotine dependence Current Visit: Yes Qualifiers: Nicotine product type: cigarettes Substance use status: uncomplicated Qualified Code(s): F17.210 - Nicotine dependence, cigarettes, uncomplicated (4) Bipolar I disorder with depression Current Visit: No (5) GERD (gastroesophageal reflux disease) Current Visit: Yes Qualifiers: Esophagitis presence: without esophagitis Qualified Code(s): K21.9 - Gastro-esophageal reflux disease without esophagitis (6) 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 Current Visit: Yes (7) Hepatitis C carrier Current Visit: No (8) Incontinence Current Visit: No Initial treatment plan: Patient will be discharged tomorrow and referred to [facility] for outpatient treatment
[2017-01-07] MEDS: diphenhydrAMINE HCL 50 MG CAPSULE PO PRN (22:10)
[2017-01-07] MEDS: SENNOSIDES 8.6MG TABLET (FP) PO SCH (22:10)
[2017-01-07] MEDS: THIAMINE HCL 100 MG TABLET (FP) PO SCH (22:10)
[2017-01-08] MEDS: DOCUSATE SODIUM 100 MG CAPSULE (FP) PO SCH (06:04)
[2017-01-08] MEDS: GABAPENTIN 300 MG CAPSULE (FP) PO SCH (06:04)
[2017-01-08] MEDS: PANTOPRAZOLE 40 MG TABLET (FP) PO SCH (06:04)
[2017-01-08] MEDS: METHADONE HCL 40 MG DISPERSABLE TABLET PO SCH (06:04)
[2017-01-08 06:53] VITALS: BP 116/72; PULSE 84; TEMP 98.2
[2017-01-08] MEDS: FERROUS SO4 325 MG TABLET (FP) PO SCH (07:04)
[2017-01-08] MEDS: NICOTINE 21 MG/24 HOURS TOPICAL PATCH TD SCH (09:53)
[2017-01-08] MEDS: PRENATAL VITAMINS W/ FOLIC ACID TABLET (FP) PO SCH (09:53)
[2017-01-08] MEDS: BACLOFEN 10 MG TABLET (FP) PO SCH (09:53)
[2017-01-08] MEDS: FLUoxetine HCL 20 MG CAPSULE (FP) PO SCH (09:53)
[2017-01-08] MEDS: BACITRACIN 0.9 GM PACKET TP SCH (09:54)
== END 2017-01-08 10:30 | disposition home or self-care (01) | DRG 772 ==
LOC: YASAS 16:37 → Y5N 21:24
PROVIDERS: ADMIT Psychiatry & Neurology Psychiatry; ATTEND Psychiatry & Neurology Psychiatry
PROC: HZ42ZZZ Group Counseling for Substance Abuse Treatment, Cognitive-Behavioral (ICD-10-PCS; principal; 2016-12-27)
DX: F10.20 Alcohol dependence, uncomplicated (principal); F11.20 Opioid dependence, uncomplicated; F14.20 Cocaine dependence, uncomplicated; F17.210 Nicotine dependence, cigarettes, uncomplicated; F31.9 Bipolar disorder, unspecified; K21.9 Gastro-esophageal reflux disease without esophagitis; G82.54 Quadriplegia, C5-C7 incomplete; B18.2 Chronic viral hepatitis C; R26.2 Difficulty in walking, not elsewhere classified; Z99.89 Dependence on other enabling machines and devices; Z88.8 Allergy status to other drugs, medicaments and biological substances; Z86.69 Personal history of other diseases of the nervous system and sense organs; Z87.11 Personal history of peptic ulcer disease; Z87.898 Personal history of other specified conditions
CPT/HCPCS: 36415; 80053; 85027; 86593; 93005; 93010; J0475

== ENCOUNTER 2017-08-17 16:27 | Inpatient (IN) | payer OTHER ==
[2017-08-17 19:27] VITALS: BMI 18.8
[2017-08-17] MEDS ORDERED: IBUPROFEN 400 MG TABLET (FP) PO PRN ×2 (20:40→22:38)
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
[2017-08-17] MEDS ORDERED: MELATONIN 5 MG TABLETS PO SCH (22:00)
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
[2017-08-17] MEDS ORDERED: P-EPHED 60MG/TRIPROLIDI 2.5MG TABLET PO PRN (22:38)
[2017-08-17] MEDS ORDERED: chlordiazePOXIDE HCL 25 MG CAPSULE PO PRN (22:38)
[2017-08-17] MEDS ORDERED: MAGNESIUM CITRATE 300 ML BOTTLE PO PRN (22:38)
[2017-08-17] MEDS ORDERED: MAGNESIUM HYDROX 2400MG/30ML ORAL SUSPENSION 30 ML CUP PO PRN (22:38)
[2017-08-17] MEDS ORDERED: MENTHOL/PHENOL 1 EACH UD MM PRN (22:38)
[2017-08-17] MEDS ORDERED: ACETAMINOPHEN 325 MG TABLET (FP) PO PRN (22:38)
[2017-08-17] MEDS ORDERED: hydrOXYzine PAMOATE 50 MG CAPSULE (FP) PO PRN (22:38)
[2017-08-17] MEDS ORDERED: NICOTINE POLACRILEX 4 MG GUM BC PRN (22:38)
[2017-08-17] MEDS ORDERED: guaiFENesin/D-METHORPHAN HB 10 ML UNIT-DOSE CUPS PO PRN (22:38)
[2017-08-17] MEDS ORDERED: LOPERAMIDE HCL 2 MG CAPSULE PO PRN (22:38)
[2017-08-17] MEDS ORDERED: MAG HYDROX/AL HYDROX/SIMETH 30 ML UNIT-DOSE CUP PO PRN (22:38)
[2017-08-17] MEDS ORDERED: MELATONIN 5 MG TABLETS PO PRN (22:41)
[2017-08-17] MEDS: BACLOFEN 10 MG TABLET (FP) PO SCH (23:16)
[2017-08-17] MEDS: DOCUSATE SODIUM 100 MG CAPSULE (FP) PO SCH (23:16)
[2017-08-17] MEDS: GABAPENTIN 300 MG CAPSULE (FP) PO SCH (23:16)
[2017-08-17] MEDS: chlordiazePOXIDE HCL 25 MG CAPSULE PO SCH (23:16)
[2017-08-18 00:36] LABS: URINE APPEARANCE CLEAR; URINE BILIRUBIN NEGATIVE (<2.0 mg/dL); URINE BLOOD NEGATIVE (NEGATIVE); URINE COLOR STRAW; URINE GLUCOSE (UA) NEGATIVE (NEGATIVE); URINE KETONE NEGATIVE (NEGATIVE); URINE LEUK ESTERASE NEGATIVE (NEGATIVE); URINE NITRITE NEGATIVE (NEGATIVE); URINE PROTEIN NEGATIVE (NEGATIVE); URINE UROBILINOGEN NEGATIVE mg/dL (0.2-1.0)
[2017-08-18] MEDS: chlordiazePOXIDE HCL 25 MG CAPSULE PO SCH ×4 (05:58→22:32)
[2017-08-18] MEDS: GABAPENTIN 300 MG CAPSULE (FP) PO SCH ×3 (05:58→22:29)
[2017-08-18] MEDS: DOCUSATE SODIUM 100 MG CAPSULE (FP) PO SCH ×3 (05:59→22:30)
[2017-08-18] MEDS: PANTOPRAZOLE 40 MG TABLET (FP) PO SCH (06:03)
--- NOTE | 2017-08-18 09:06 | EKG ---
Test Reason : Blood Pressure : / mmHG Vent. Rate : 063 BPM Atrial Rate : 063 BPM P-R Int : 164 ms QRS Dur : 110 ms QT Int : 408 ms P-R-T Axes : 075 064 063 degrees QTc Int : 417 ms NORMAL SINUS RHYTHM INCOMPLETE RIGHT BUNDLE BRANCH BLOCK BORDERLINE ECG WHEN COMPARED WITH ECG OF 28-DEC-2016 06:54, PREMATURE ATRIAL COMPLEXES ARE NO LONGER PRESENT INCOMPLETE RIGHT BUNDLE BRANCH BLOCK IS NOW PRESENT Confirmed by BERNA COTTO MD ([id number]) on 08/18/2017 9:06:02 AM Referred By: Confirmed By:BERNA COTTO MD
[2017-08-18 10:09] LABS: HEMOGLOBIN 12.3 GM/dL (11.7-16.9); MCH 35.2 pg (25.7-33.7); MCHC 35.1 g/dl (32.0-35.9); MEAN CELL VOLUME 100.3 fl (80-96); MEAN PLT VOLUME 8.1 fl (7.5-11.1); PLATELET COUNT 168 K/MM3 (134-434); RBC 3.49 M/mm3 (4.00-5.60); RDW 13.6 % (11.9-15.9); WHITE BLOOD COUNT 4.5 K/mm3 (4.0-10.0)
[2017-08-18 10:35] LABS: ALBUMIN 3.3 g/dl (3.4-5.0); ANION GAP 8 (8-16); BLOOD UREA NITROGEN 12 mg/dL (7-18); CALCIUM 8.2 mg/dL (8.5-10.1); CHLORIDE 108 mmol/L (98-107); CO2 30 mmol/L (21-32); GLUCOSE,RANDOM 95 mg/dL (74-106); SODIUM 146 mmol/L (136-145)
[2017-08-18 10:39] LABS: ALK PHOS 89 U/L (45-117); BILIRUBIN,TOTAL 0.5 mg/dL (0.2-1.0); CREATININE 0.5 mg/dL (0.7-1.3); SGOT/AST 29 U/L (15-37); SGPT/ALT 24 U/L (12-78); TOT PROT 6.4 g/dl (6.4-8.2)
[2017-08-18] MEDS: NICOTINE 21 MG/24 HOURS TOPICAL PATCH TD SCH (10:57)
[2017-08-18] MEDS: BACLOFEN 10 MG TABLET (FP) PO SCH ×2 (10:57→22:29)
[2017-08-18] MEDS: METHADONE HCL 40 MG DISPERSABLE TABLET PO SCH (10:57)
[2017-08-18] MEDS: PRENATAL VITAMINS W/ FOLIC ACID TABLET (FP) PO SCH (10:57)
[2017-08-18] MEDS: FLUoxetine HCL 20 MG CAPSULE (FP) PO SCH (10:59)
--- NOTE | 2017-08-18 11:08 | CONSULT ---
[facility] Psychiatric Consult - Data Date of interview: 08/18/17 Admission source: [facility] Identifying data: This is 46 years old male with multiple medical issues, umbulates with walker, single, living alone, on SSI, is here referred FOR Detox by MMTP,due to Alcohol and Nicotin intoxication. Substance Abuse History: Smoking history: Current every day smoker. Have you smoked in the past 12 months: Yes. Aproximately how many cigarettes per day: 15. Cigars Per Day: 0. Hx Chewing Tobacco Use: No. Initiated information on smoking cessation: Yes. 'Breaking Loose' booklet given: 08/17/17. - Substance & Tx. History. Hx Alcohol Use: Yes. Hx Substance Use: No. Substance Use Type : Alcohol, Prescribed (METHADONE). - Substances Abused. Alcohol. Route: Oral. Frequency: Daily. Amount used: vodka 1 pint , beer 3 cans. Age of first use: 8. Date of Last Use: 08/17/17 Medical History: MMTP 80mjg per day, C5-C6 injury history with compications, Incontinanace history, Seizure history, umbulates with Walker. Psychiatric History: Praveen alvarado histopry of depression and insomnia, taking prior to admission: Remeron 30mg po qhs. Ambien 10mg po qhs. As per chart carries Bipolar Disorder as well Physical/Sexual Abuse/Trauma History: Denies Additional Comment: Remeron 30mg po qhs. Ambien 10mg po qhs Mental Status Exam - Mental Status Exam Alert and Oriented to: Person Cognitive Function: Fair Patient Appearance: Unkempt Mood: Sad Affect: Mood Congruent Patient Behavior: Cooperative Speech Pattern: Delayed Voice Loudness: Mildly Soft/Quiet Thought Process: Circumstantial Thought Disorder: Being Controlled Hallucinations: Denies Suicidal Ideation: Denies Homicidal Ideation: Denies Insight/Judgement: Fair Sleep: Difficulty falling asleep Appetite: Weight loss Muscle strength/Tone: Clonus Gait/Station: Deferred Additional Comments: Remeron 30mg po qhs. Ambien 10mg po qhs Psychiatric Findings - Problem List ([place] 1, 2,3) (1) Alcohol abuse Current Visit: No Status: Active (2) Alcohol dependence Current Visit: No Status: Acute (3) Alcohol dependence, continuous Current Visit: No Status: Acute (4) Benzodiazepine abuse Current Visit: No Status: Acute (5) Bipolar I disorder with depression Current Visit: No Status: Acute (6) Depressive disorder Current Visit: No Status: Acute (7) Drug-induced mood disorder Current Visit: No Status: Acute (8) Opioid dependence Current Visit: No Status: Acute (9) Opioid dependence on agonist therapy Current Visit: No Status: Acute (10) Opioid dependence with withdrawal Current Visit: No Status: Acute (11) Opioid dependence, uncomplicated Current Visit: No Status: Acute (12) Other and unspecified alcohol dependence, episodic drinking behavior Current Visit: No Status: Acute (13) Alcohol dependence with uncomplicated withdrawal Current Visit: No Status: Chronic (14) Cannabis abuse Current Visit: No Status: Chronic (15) Cocaine dependence with withdrawal Current Visit: No Status: Chronic (16) GERD (gastroesophageal reflux disease) Current Visit: No Status: Chronic Qualifiers: Esophagitis presence: without esophagitis Qualified Code(s): K21.9 - Gastro -esophageal reflux disease without esophagitis (17) Methadone maintenance therapy patient Current Visit: No Status: Chronic (18) Nicotine dependence Current Visit: No Status: Chronic Qualifiers: Nicotine product type: cigarettes Substance use status: uncomplicated Qualified Code(s): F17.210 - Nicotine dependence, cigarettes, uncomplicated - Initial Treatment Plan Initial Treatment Plan: Remeron 30mg po qhs. Ambien 10mg po qhs
--- NOTE | 2017-08-18 11:12 | PN ---
S CIWA - CIWA Score Nausea/Vomitin Muscle Tremors: 3 Anxiety: 3 Agitation: 2 Paroxysmal Sweats: 1-Minimal Palms Moist Orientation: 0-Oriented Tacttile Disturbances: 1-Very Mild Itch/Numbness Auditory Disturbances: 1-Very Mild Visual Disturbances: 0-None Headache: 2-Mild CIWA-Ar Total Score: 16 BHS Progress Note (SOAP) Subjective: ALERT,IRRITABLE,ANXIOUS,INTERRUPTED SLEEP,TREMOR Objective: 08/18/17 11:10 Vital Signs Temperature 98.1 F 08/18/17 09:46 Pulse Rate 82 08/18/17 10:30 Respiratory Rate 20 08/18/17 10:30 Blood Pressure 101/60 08/18/17 09:46 O2 Sat by Pulse Oximetry (%) EKG NSR,INCOMPLETE RBBB NO CHEST PAIN,NO SOB,NO Laboratory Last Values WBC 4.5 K/mm3 (4.0-10.0) 08/18/17 07:00 RBC 3.49 M/mm3 (4.00-5.60) L 08/18/17 07:00 Hgb 12.3 GM/dL (11.7-16.9) 08/18/17 07:00 Hct 35.0 % (35.4-49) L 08/18/17 07:00 MCV 100.3 fl (80-96) H 08/18/17 07:00 MCH 35.2 pg (25.7-33.7) H 08/18/17 07:00 MCHC 35.1 g/dl (32.0-35.9) 08/18/17 07:00 RDW 13.6 % (11.9-15.9) 08/18/17 07:00 Plt Count 168 K/MM3 (134-434) 08/18/17 07:00 MPV 8.1 fl (7.5-11.1) D 08/18/17 07:00 Sodium 146 mmol/L (136-145) H 08/18/17 07:00 Potassium 4.0 mmol/L (3.5-5.1) 08/18/17 07:00 Chloride 108 mmol/L (98-107) H 08/18/17 07:00 Carbon Dioxide 30 mmol/L (21-32) 08/18/17 07:00 Anion Gap 8 (8-16) 08/18/17 07:00 BUN 12 mg/dL (7-18) 08/18/17 07:00 Creatinine 0.5 mg/dL (0.7-1.3) L 08/18/17 07:00 Creat Clearance w eGFR > 60 (>60) 08/18/17 07:00 Random Glucose 95 mg/dL (74-106) D 08/18/17 07:00 Calcium 8.2 mg/dL (8.5-10.1) L 08/18/17 07:00 Total Bilirubin 0.5 mg/dL (0.2-1.0) 08/18/17 07:00 AST 29 U/L (15-37) 08/18/17 07:00 ALT 24 U/L (12-78) D 08/18/17 07:00 Alkaline Phosphatase 89 U/L (45-117) 08/18/17 07:00 Total Protein 6.4 g/dl (6.4-8.2) 08/18/17 07:00 Albumin 3.3 g/dl (3.4-5.0) L 08/18/17 07:00 Urine Color Straw 08/17/17 22:50 Urine Appearance Clear 08/17/17 22:50 Urine pH 5.0 (5.0-8.0) 08/17/17 22:50 Ur Specific [place] 1.006 (1.001-1.035) 08/17/17 22:50 Urine Protein Negative (NEGATIVE) 08/17/17 22:50 Urine Glucose (UA) Negative (NEGATIVE) 08/17/17 22:50 Urine Ketones Negative (NEGATIVE) 08/17/17 22:50 Urine Blood Negative (NEGATIVE) 08/17/17 22:50 Urine Nitrite Negative (NEGATIVE) 08/17/17 22:50 Urine Bilirubin Negative (<2.0 mg/dL) 08/17/17 22:50 Urine Urobilinogen Negative mg/dL (0.2-1.0) 08/17/17 22:50 Ur Leukocyte Esterase Negative (NEGATIVE) 08/17/17 22:50 DIZZINESS Assessment: 08/18/17 11:11 WITHDRAWAL SYMPTOM Plan: CONTINUE DETOX
[2017-08-18] MEDS: THIAMINE HCL 100 MG TABLET (FP) PO SCH (22:30)
[2017-08-18] MEDS: SENNOSIDES 8.6MG TABLET (FP) PO SCH (22:32)
[2017-08-18] MEDS: MIRTAZAPINE 15 MG TABLET (FP) PO SCH (22:55)
[2017-08-19] MEDS: METHADONE HCL 40 MG DISPERSABLE TABLET PO SCH (05:41)
[2017-08-19] MEDS: GABAPENTIN 300 MG CAPSULE (FP) PO SCH ×3 (05:41→22:38)
[2017-08-19] MEDS: DOCUSATE SODIUM 100 MG CAPSULE (FP) PO SCH ×3 (05:42→22:39)
[2017-08-19] MEDS: chlordiazePOXIDE HCL 25 MG CAPSULE PO SCH ×3 (05:42→18:45)
[2017-08-19] MEDS: PANTOPRAZOLE 40 MG TABLET (FP) PO SCH (05:45)
[2017-08-19] MEDS: BACLOFEN 10 MG TABLET (FP) PO SCH ×2 (10:36→22:39)
[2017-08-19] MEDS: NICOTINE 21 MG/24 HOURS TOPICAL PATCH TD SCH (10:36)
[2017-08-19] MEDS: FLUoxetine HCL 20 MG CAPSULE (FP) PO SCH (10:36)
[2017-08-19] MEDS: PRENATAL VITAMINS W/ FOLIC ACID TABLET (FP) PO SCH (10:36)
--- NOTE | 2017-08-19 11:33 | PN ---
S CIWA - CIWA Score Nausea/Vomitin Muscle Tremors: 3 Anxiety: 3 Agitation: 3 Paroxysmal Sweats: 1-Minimal Palms Moist Orientation: 0-Oriented Tacttile Disturbances: 1-Very Mild Itch/Numbness Auditory Disturbances: 1-Very Mild Visual Disturbances: 0-None Headache: 2-Mild CIWA-Ar Total Score: 17 BHS Progress Note (SOAP) Subjective: ALERT,IRRITABLE,ANXIOUS,INTERRUPTED SLEEP,TREMOR,PAIN IN THE BODY,CONSTIPATED Objective: 08/19/17 11:31 Vital Signs Temperature 96.6 F L 08/19/17 10:00 Pulse Rate 74 08/19/17 10:00 Respiratory Rate 18 08/19/17 10:00 Blood Pressure 112/60 08/19/17 10:00 O2 Sat by Pulse Oximetry (%) 08/19/17 11:32 X RAY OF FACIAL BONE NO FRACTURE Assessment: 08/19/17 11:32 WITHDRAWAL SYMPTOM Plan: CONTINUE DETOX
[2017-08-19] MEDS: THIAMINE HCL 100 MG TABLET (FP) PO SCH (22:38)
[2017-08-19] MEDS: chlordiazePOXIDE 5 MG CAPSULE PO SCH (22:39)
[2017-08-19] MEDS: SENNOSIDES 8.6MG TABLET (FP) PO SCH (22:39)
[2017-08-19] MEDS: MIRTAZAPINE 15 MG TABLET (FP) PO SCH (23:51)
[2017-08-20] MEDS: GABAPENTIN 300 MG CAPSULE (FP) PO SCH ×3 (06:02→22:48)
[2017-08-20] MEDS: METHADONE HCL 40 MG DISPERSABLE TABLET PO SCH (06:02)
[2017-08-20] MEDS: DOCUSATE SODIUM 100 MG CAPSULE (FP) PO SCH ×3 (06:03→22:49)
[2017-08-20] MEDS: chlordiazePOXIDE 5 MG CAPSULE PO SCH ×3 (06:03→18:34)
[2017-08-20] MEDS: PANTOPRAZOLE 40 MG TABLET (FP) PO SCH (06:06)
[2017-08-20] MEDS ORDERED: COLLOIDAL OATMEAL 1 BAR EACH TP PRN (09:39)
--- NOTE | 2017-08-20 10:34 | PN ---
BHS Progress Note (SOAP) Subjective: ALERT,IRRITABLE,ANXIOUS,INTERRUPTED SLEEP,SENSITIVE SKIN Objective: 08/20/17 10:33 Vital Signs Temperature 98.4 F 08/20/17 10:00 Pulse Rate 75 08/20/17 10:00 Respiratory Rate 18 08/20/17 10:00 Blood Pressure 99/59 08/20/17 10:00 O2 Sat by Pulse Oximetry (%) Assessment: 08/20/17 10:33 WITHDRAWAL SYMPTOM Plan: CONTINUE DETOX,AVE[place] SOAP,DISCHARGE IN AM
[2017-08-20] MEDS: BACLOFEN 10 MG TABLET (FP) PO SCH ×2 (10:57→22:49)
[2017-08-20] MEDS: PRENATAL VITAMINS W/ FOLIC ACID TABLET (FP) PO SCH (10:57)
[2017-08-20] MEDS: FLUoxetine HCL 20 MG CAPSULE (FP) PO SCH (10:57)
[2017-08-20] MEDS: NICOTINE 21 MG/24 HOURS TOPICAL PATCH TD SCH (10:58)
[2017-08-20 21:40] VITALS: TEMP 97.9
[2017-08-20] MEDS ORDERED: ZOLPIDEM TARTRATE 10 MG TABLET (PARK CARE ONLY) PO PRN (22:00)
[2017-08-20] MEDS: SENNOSIDES 8.6MG TABLET (FP) PO SCH (22:49)
[2017-08-20] MEDS: THIAMINE HCL 100 MG TABLET (FP) PO SCH (22:49)
[2017-08-20] MEDS: chlordiazePOXIDE HCL 10 MG CAPSULE PO SCH (22:50)
[2017-08-21 06:15] VITALS: BP 134/81; PULSE 76
[2017-08-21] MEDS: METHADONE HCL 40 MG DISPERSABLE TABLET PO SCH (06:37)
[2017-08-21] MEDS: chlordiazePOXIDE HCL 10 MG CAPSULE PO SCH (06:37)
[2017-08-21] MEDS: GABAPENTIN 300 MG CAPSULE (FP) PO SCH (06:37)
[2017-08-21] MEDS: DOCUSATE SODIUM 100 MG CAPSULE (FP) PO SCH (06:37)
[2017-08-21] MEDS: PANTOPRAZOLE 40 MG TABLET (FP) PO SCH (06:37)
[2017-08-21] MEDS: FLUoxetine HCL 20 MG CAPSULE (FP) PO SCH (09:11)
[2017-08-21] MEDS: PRENATAL VITAMINS W/ FOLIC ACID TABLET (FP) PO SCH (09:11)
[2017-08-21] MEDS: BACLOFEN 10 MG TABLET (FP) PO SCH (09:11)
--- NOTE | 2017-08-21 10:33 | PN ---
S Progress Note (SOAP) Subjective: ALERT,NO COMPLAINT Objective: 08/21/17 10:32 Vital Signs Temperature 97.9 F 08/21/17 06:00 Pulse Rate 76 08/21/17 06:00 Respiratory Rate 16 08/21/17 06:00 Blood Pressure 134/81 08/21/17 06:00 O2 Sat by Pulse Oximetry (%) Assessment: 08/21/17 10:32 DETOX COMPLETED,NO WITHDRAWAL SYMPTOM Plan: DISCHARGE TODAY,FOLLOW UP WITH AFTER CARE PROGRAM ARRANGEMENT
--- NOTE | 2017-08-21 10:39 | DS ---
[facility] Detox Discharge Summary Admission Date: 08/17/17 Discharge Date: 08/21/17 - History Present History: Alcohol Dependence, MMTP Additional Comments: FOLLOW UP WITH AFTER CARE PROGRAM ARRANGEMENT Pertinent Past History: GERD HEPATITIS C INCOMPLETE QUADRIPLEGIA C5 C6 NICOTINE DEPENDENCE INCONTINENCE SEIZURE DISORDER WALKER AMBULATORY AID - Physical Exam Results Vital Signs: Vital Signs Temperature 97.9 F 08/21/17 06:00 Pulse Rate 76 08/21/17 06:00 Respiratory Rate 16 08/21/17 06:00 Blood Pressure 134/81 08/21/17 06:00 O2 Sat by Pulse Oximetry (%) Pertinent Admission Physical Exam Findings: WITHDRAWAL SIGNS AND SYMPTOM Vital Signs Temperature 97.9 F 08/21/17 06:00 Pulse Rate 76 08/21/17 06:00 Respiratory Rate 16 08/21/17 06:00 Blood Pressure 134/81 08/21/17 06:00 O2 Sat by Pulse Oximetry (%) Laboratory Last Values WBC 4.5 K/mm3 (4.0-10.0) 08/18/17 07:00 RBC 3.49 M/mm3 (4.00-5.60) L 08/18/17 07:00 Hgb 12.3 GM/dL (11.7-16.9) 08/18/17 07:00 Hct 35.0 % (35.4-49) L 08/18/17 07:00 MCV 100.3 fl (80-96) H 08/18/17 07:00 MCH 35.2 pg (25.7-33.7) H 08/18/17 07:00 MCHC 35.1 g/dl (32.0-35.9) 08/18/17 07:00 RDW 13.6 % (11.9-15.9) 08/18/17 07:00 Plt Count 168 K/MM3 (134-434) 08/18/17 07:00 MPV 8.1 fl (7.5-11.1) D 08/18/17 07:00 Sodium 146 mmol/L (136-145) H 08/18/17 07:00 Potassium 4.0 mmol/L (3.5-5.1) 08/18/17 07:00 Chloride 108 mmol/L (98-107) H 08/18/17 07:00 Carbon Dioxide 30 mmol/L (21-32) 08/18/17 07:00 Anion Gap 8 (8-16) 08/18/17 07:00 BUN 12 mg/dL (7-18) 08/18/17 07:00 Creatinine 0.5 mg/dL (0.7-1.3) L 08/18/17 07:00 Creat Clearance w eGFR > 60 (>60) 08/18/17 07:00 Random Glucose 95 mg/dL (74-106) D 08/18/17 07:00 Calcium 8.2 mg/dL (8.5-10.1) L 08/18/17 07:00 Total Bilirubin 0.5 mg/dL (0.2-1.0) 08/18/17 07:00 AST 29 U/L (15-37) 08/18/17 07:00 ALT 24 U/L (12-78) D 08/18/17 07:00 Alkaline Phosphatase 89 U/L (45-117) 08/18/17 07:00 Total Protein 6.4 g/dl (6.4-8.2) 08/18/17 07:00 Albumin 3.3 g/dl (3.4-5.0) L 08/18/17 07:00 Urine Color Straw 08/17/17 22:50 Urine Appearance Clear 08/17/17 22:50 Urine pH 5.0 (5.0-8.0) 08/17/17 22:50 Ur Specific [place] 1.006 (1.001-1.035) 08/17/17 22:50 Urine Protein Negative (NEGATIVE) 08/17/17 22:50 Urine Glucose (UA) Negative (NEGATIVE) 08/17/17 22:50 Urine Ketones Negative (NEGATIVE) 08/17/17 22:50 Urine Blood Negative (NEGATIVE) 08/17/17 22:50 Urine Nitrite Negative (NEGATIVE) 08/17/17 22:50 Urine Bilirubin Negative (<2.0 mg/dL) 08/17/17 22:50 Urine Urobilinogen Negative mg/dL (0.2-1.0) 08/17/17 22:50 Ur Leukocyte Esterase Negative (NEGATIVE) 08/17/17 22:50 RPR Titer Nonreactive (NONREACTIVE) 08/18/17 07:00 - Treatment Hospital Course: Detox Protocol Followed, Detoxed Safely, Responded well, Discharged Condition Good Patient has Accepted a Rehab Referral to: DECLINED - Medication Discharge Medications: Ambulatory Orders Mirtazapine [Remeron -] 15 mg PO HS #30 tablet 12/21/16 Baclofen [Lioresal -] 10 mg PO BID #30 tablet 01/08/17 Docusate Sodium [Colace -] 100 mg PO TID #30 cap 01/08/17 Ferrous Sulfate [Feosol] 325 mg PO TIDCM #90 ud 01/08/17 Gabapentin [Neurontin -] 600 mg PO TID #90 capsule 01/08/17 Pantoprazole Sodium [Protonix -] 40 mg PO DAILY@0600 #30 tab 01/08/17 Sennosides [Senna -] 1 tab PO HS #30 tablet 01/08/17 Fluoxetine HCl [Prozac -] 60 mg PO DAILY #30 tab 08/18/17 Mirtazapine [Remeron -] 15 mg PO HS #30 tablet 08/18/17 Zolpidem Tartrate [Ambien] 10 mg PO HS PRN #14 tablet MDD 10 08/20/17 - Diagnosis (1) Alcohol dependence with uncomplicated withdrawal Current Visit: No Status: Chronic (2) Cannabis abuse Current Visit: No Status: Chronic (3) Cocaine dependence with withdrawal Current Visit: No Status: Chronic (4) GERD (gastroesophageal reflux disease) Current Visit: No Status: Chronic Qualifiers: Esophagitis presence: without esophagitis Qualified Code(s): K21.9 - Gastro -esophageal reflux disease without esophagitis (5) Hepatitis C carrier Current Visit: No Status: Chronic (6) 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 Current Visit: No Status: Chronic (7) Incontinence Current Visit: No Status: Chronic Qualifiers: Incontinence type: urinary Urinary Incontinence type: unspecified incontinence Qualified Code(s): R32 - Unspecified urinary incontinence (8) Methadone maintenance therapy patient Current Visit: No Status: Chronic (9) Nicotine dependence Current Visit: No Status: Chronic Qualifiers: Nicotine product type: cigarettes Substance use status: uncomplicated Qualified Code(s): F17.210 - Nicotine dependence, cigarettes, uncomplicated (10) Seizure disorder Current Visit: No Status: Chronic (11) Walker as ambulation aid Current Visit: No Status: Chronic (12) Weight loss Current Visit: No Status: Chronic - AMA Did Patient Leave Against Medical Advice: No
== END 2017-08-21 09:24 | disposition home or self-care (01) | DRG 773 ==
LOC: YASAS 16:27 → Y6N 21:35
PROVIDERS: ADMIT Internal Medicine; ATTEND Internal Medicine
PROC: HZ2ZZZZ Detoxification Services for Substance Abuse Treatment (ICD-10-PCS; principal; 2017-08-17)
PROC: HZ2ZZZZ Detoxification Services for Substance Abuse Treatment (ICD-10-PCS; 2017-08-17)
PROC: HZ2ZZZZ Detoxification Services for Substance Abuse Treatment (ICD-10-PCS; 2017-08-20)
DX: F11.23 Opioid dependence with withdrawal (principal); F13.10 Sedative, hypnotic or anxiolytic abuse, uncomplicated; F10.230 Alcohol dependence with withdrawal, uncomplicated; F14.23 Cocaine dependence with withdrawal; F12.10 Cannabis abuse, uncomplicated; F17.210 Nicotine dependence, cigarettes, uncomplicated; F19.24 Other psychoactive substance dependence with psychoactive substance-induced mood disorder; F31.89 Other bipolar disorder; B18.2 Chronic viral hepatitis C; R32 Unspecified urinary incontinence; G82.54 Quadriplegia, C5-C7 incomplete; Z86.69 Personal history of other diseases of the nervous system and sense organs; Z87.19 Personal history of other diseases of the digestive system; R26.89 Other abnormalities of gait and mobility; Z99.89 Dependence on other enabling machines and devices
CPT/HCPCS: 36415; 70150-TC-FY; 80053; 81003; 85027; 86593; 93005; 93010; J0475

== ENCOUNTER 2017-12-17 12:12 | Inpatient (IN) | payer OTHER ==
[2017-12-17 12:50] VITALS: BMI 20.2
--- NOTE | 2017-12-17 13:26 | HP ---
CIWA Score - CIWA Score Nausea/Vomitin-Mild Nausea/No Vomiting Muscle Tremors: 4-Moderate,w/Arms Extend Anxiety: 4-Mod. Anxious/Guarded Agitation: 4-Moderately Restless Paroxysmal Sweats: 1-Minimal Palms Moist Orientation: 0-Oriented Tacttile Disturbances: 2-Mild Itch/Numbness/Burn Auditory Disturbances: 0-None Visual Disturbances: 0-None Headache: 1-Very Mild CIWA-Ar Total Score: 17 Admission ROS S - HPI Chief Complaint: alcohol withdrawal sx Allergies/Adverse Reactions: Allergies Allergy/AdvReac Type Severity Reaction Status Date / Time phenytoin Allergy Severe Rash Verified 12/17/17 13:35 History of Present Illness: 47 years old with long history of alcohol nicotine dependence has constipation neuropathy ambulate with walker since 2013 fall surgical repaired cervical spine and has bipolar II is admitted to detox Exam Limitations: No Limitations - Ebola screening Have you traveled outside of the country in the last 21 days: No Have you had contact with anyone from an Ebola affected area: No Have you been sick,other than usual withdrawal symptoms: No Do you have a fever: No - Review of Systems Constitutional: Loss of Appetite, Changes in sleep, Unintentional Wgt. Loss, Unexplained wgt Loss EENT: reports: No Symptoms Reported Respiratory: reports: No Symptoms reported Cardiac: reports: No Symptoms Reported GI: reports: Nausea, Poor Appetite, Poor Fluid Intake, Abdominal cramping : reports: Incontinence Musculoskeletal: reports: Muscle Weakness (legs) Integumentary: reports: Other (multiple skin abrasion of the arms) Neuro: reports: Seizure (since 2007), Tremors Endocrine: reports: No Symptoms Reported Hematology: reports: No Symptoms Reported Psychiatric: reports: Judgement Intact, Orientated x3, Anxious, Depressed Other Systems: Reviewed and Negative Patient History - Patient Medical History Hx Anemia: No Hx Asthma: No Hx Chronic Obstructive Pulmonary Disease (COPD): No Hx Cancer: No Hx Cardiac Disorders: No Hx Congestive Heart Failure: No Hx Hypertension: No Hx Hypercholesterolemia: No Hx Pacemaker: No HX Cerebrovascular Accident: No Hx Seizures: Yes (LAST 2007) Hx Dementia: No Hx Diabetes: No Hx Gastrointestinal Disorders: Yes (peptic ulcer) Hx Liver Disease: No Hx Genitourinary Disorders: No Hx Sexually Transmitted Disorders: No Hx Renal Disease (ESRD): No Hx Thyroid Disease: No Hx Human Immunodeficiency Virus (HIV): No Hx Hepatitis C: Yes Hx Depression: No Hx Suicide Attempt: No Hx Bipolar Disorder: Yes Hx Schizophrenia: No - Patient Surgical History Past Surgical History: Yes Hx Neurologic Surgery: Yes (neck in 2013) Hx Cataract Extraction: No Hx Cardiac Surgery: No Hx Lung Surgery: No Hx Breast Surgery: No Hx Breast Biopsy: No Hx Abdominal Surgery: Yes ([place] Hx Appendectomy: No Hx Cholecystectomy: No Hx Genitourinary Surgery: No Hx Orthopedic Surgery: Yes (RIGHT KNEE DUE TO TORN MENISCUS IN 2011) Other Surgical History: Sx R knee meniscus repair 7 wks ago. Anesthesia Reaction: No - PPD History Previous Implant?: Yes Documented Results: Negative w/proof Implanted On Prior R Admission?: Yes Date: 08/19/17 Results: 0 mm PPD to be Administered?: No - Smoking Cessation Smoking history: Current every day smoker Have you smoked in the past 12 months: Yes Aproximately how many cigarettes per day: 20 Cigars Per Day: 0 Hx Chewing Tobacco Use: No Initiated information on smoking cessation: Yes 'Breaking Loose' booklet given: 12/17/17 - Substance & Tx. History Hx Alcohol Use: Yes Hx Substance Use: No Substance Use Type: Alcohol Hx Substance Use Treatment: Yes (07/2017 [facility] Family Disease History - Family Disease History Family Disease History: Diabetes: Father, Heart Disease: Mother, Brother Admission Physical Exam S - Vital Signs Vital Signs: Vital Signs - 24 hr 12/17/17 12:40 Temperature 98.1 F Pulse Rate 78 Respiratory 18 Rate Blood Pressure 119/62 - Physical General Appearance: Yes: Appropriately Dressed, Mild Distress, Alcohol on Breath , Thin, Tremorous, Irritable, Sweating, Anxious HEENTM: Yes: Hearing grossly Normal, Normocephalic, Normal Voice Respiratory: Yes: Chest Non-Tender, Lungs Clear, Normal Breath Sounds, No Respiratory Distress, No Accessory Muscle Use Neck: Yes: Supple, Trachea in good position Breast: Yes: Breasts Symetrical, No Discharge Cardiology: Yes: Regular Rhythm, Regular Rate, S1, S2 Abdominal: Yes: Non Tender, Flat, Soft, Decreased BS Genitourinary: Yes: Incontinient Back: Yes: Normal Inspection Musculoskeletal: Yes: Gait Steady (WALKER), Muscle weakness (LEGS) Extremities: Yes: Non-Tender, Tremors, Other (MULTIPLE SKIN ABRASION FROM FREQUENT FALL) Neurological: Yes: Fully Oriented, Alert, Normal Response, Depressed Affect Integumentary: Yes: Warm, Other (MULTIPL SKIN ABRASION FINGERS AND ELBOWS CONTRACTION AND WEAKNESS) Lymphatic: Yes: Within Normal Limits - Diagnostic (1) Alcohol dependence with uncomplicated withdrawal Current Visit: Yes Status: Acute (2) GERD (gastroesophageal reflux disease) Current Visit: Yes Status: Chronic Qualifiers: Esophagitis presence: without esophagitis Qualified Code(s): K21.9 - Gastro -esophageal reflux disease without esophagitis (3) Hepatitis C carrier Current Visit: No Status: Chronic (4) Incontinence Current Visit: Yes Status: Chronic Qualifiers: Incontinence type: urinary Urinary Incontinence type: unspecified incontinence Qualified Code(s): R32 - Unspecified urinary incontinence (5) Methadone maintenance therapy patient Current Visit: Yes Status: Chronic (6) Nicotine dependence Current Visit: Yes Status: Acute Qualifiers: Nicotine product type: cigarettes Substance use status: in withdrawal Qualified Code(s): F17.213 - Nicotine dependence, cigarettes, with withdrawal (7) Seizure disorder Current Visit: Yes Status: Chronic Comment: on gabapentin (8) Walker as ambulation aid Current Visit: Yes Status: Chronic Cleared for Admission S - Detox or Rehab [facility] Level of Care: Medically Managed Detox Regimen/Protocol: Librium [facility] Breath Alcohol Content Breath Alcohol Content: 0.094 Urine Drug Screen - Control Is Test Valid: Yes - Results Drug Screen Negative: No Urine Drug Screen Results: MTD-Methadone
[2017-12-17] MEDS ORDERED: NICOTINE POLACRILEX 4 MG GUM BUC PRN (13:32)
[2017-12-17] MEDS ORDERED: guaiFENesin/D-METHORPHAN HB 10 ML UNIT-DOSE CUPS PO PRN (13:32)
[2017-12-17] MEDS ORDERED: MAGNESIUM HYDROX 2400MG/30ML ORAL SUSPENSION 30 ML CUP PO PRN (13:32)
[2017-12-17] MEDS ORDERED: MAG HYDROX/AL HYDROX/SIMETH 30 ML UNIT-DOSE CUP PO PRN (13:32)
[2017-12-17] MEDS ORDERED: P-EPHED 60MG/TRIPROLIDI 2.5MG TABLET PO PRN (13:32)
[2017-12-17] MEDS ORDERED: chlordiazePOXIDE HCL 25 MG CAPSULE PO PRN (13:32)
[2017-12-17] MEDS ORDERED: MAGNESIUM CITRATE 300 ML BOTTLE PO PRN (13:32)
[2017-12-17] MEDS ORDERED: MENTHOL/PHENOL 1 EACH UD MM PRN (13:32)
[2017-12-17] MEDS ORDERED: LOPERAMIDE HCL 2 MG CAPSULE PO PRN (13:32)
[2017-12-17] MEDS ORDERED: SENNOSIDES 8.6MG TABLET (FP) PO PRN (13:50)
[2017-12-17] MEDS: chlordiazePOXIDE HCL 25 MG CAPSULE PO SCH ×2 (17:27→22:50)
[2017-12-17] MEDS: RANITIDINE HCL 150 MG TABLET (FP) PO SCH ×2 (17:29→22:50)
[2017-12-17] MEDS: BACLOFEN 10 MG TABLET (FP) PO SCH ×2 (17:29→22:50)
[2017-12-17] MEDS: GABAPENTIN 300 MG CAPSULE (FP) PO SCH ×2 (17:29→22:50)
[2017-12-17] MEDS: NICOTINE 21 MG/24 HOURS TOPICAL PATCH TD SCH (17:29)
[2017-12-17] MEDS: DOCUSATE SODIUM 100 MG CAPSULE (FP) PO SCH ×2 (17:30→22:50)
[2017-12-17] MEDS: BACITRACIN 0.9 GM PACKET TP SCH ×3 (17:30→22:50)
[2017-12-17 18:43] LABS: URINE APPEARANCE CLEAR; URINE BILIRUBIN NEGATIVE (<2.0 mg/dL); URINE COLOR LTYELLOW; URINE GLUCOSE (UA) NEGATIVE (NEGATIVE); URINE KETONE NEGATIVE (NEGATIVE); URINE LEUK ESTERASE NEGATIVE (NEGATIVE); URINE NITRITE NEGATIVE (NEGATIVE); URINE PROTEIN NEGATIVE (NEGATIVE); URINE UROBILINOGEN NEGATIVE mg/dL (0.2-1.0)
[2017-12-17] MEDS ORDERED: MELATONIN 5 MG TABLETS PO PRN (22:00)
[2017-12-17] MEDS ORDERED: DOCUSATE SODIUM 100 MG CAPSULE (FP) PO SCH (22:00)
[2017-12-17] MEDS ORDERED: SENNOSIDES 8.6MG TABLET (FP) PO SCH (22:00)
[2017-12-17] MEDS: THIAMINE HCL 100 MG TABLET (FP) PO SCH (22:50)
[2017-12-18] MEDS: DOCUSATE SODIUM 100 MG CAPSULE (FP) PO SCH ×3 (05:08→22:47)
[2017-12-18] MEDS: GABAPENTIN 300 MG CAPSULE (FP) PO SCH ×3 (05:09→22:47)
[2017-12-18] MEDS: chlordiazePOXIDE HCL 25 MG CAPSULE PO SCH ×4 (05:09→22:46)
[2017-12-18] MEDS: METHADONE HCL 40 MG DISPERSABLE TABLET PO SCH (07:04)
[2017-12-18] MEDS: ACETAMINOPHEN 325 MG TABLET (FP) PO PRN (07:04)
[2017-12-18] MEDS ORDERED: LIDOCAINE VISCOUS 2% ORAL/TOP 100 ML BOTTLE MM ONE (07:11)
[2017-12-18] MEDS: BACITRACIN 0.9 GM PACKET TP SCH ×4 (10:07→22:47)
[2017-12-18] MEDS: PRENATAL VITAMINS W/ FOLIC ACID TABLET (FP) PO SCH (10:07)
[2017-12-18] MEDS: RANITIDINE HCL 150 MG TABLET (FP) PO SCH ×2 (10:07→22:46)
[2017-12-18] MEDS: NICOTINE 21 MG/24 HOURS TOPICAL PATCH TD SCH (10:07)
[2017-12-18] MEDS: BACLOFEN 10 MG TABLET (FP) PO SCH ×2 (10:08→22:47)
[2017-12-18 10:16] LABS: CHLORIDE 105 mmol/L (98-107); POTASSIUM 4.5 mmol/L (3.5-5.1); SODIUM 142 mmol/L (136-145)
[2017-12-18 10:25] LABS: ALBUMIN 3.4 g/dl (3.4-5.0); ALK PHOS 113 U/L (45-117); ANION GAP 5 (8-16); BILIRUBIN,TOTAL 0.4 mg/dL (0.2-1.0); BLOOD UREA NITROGEN 10 mg/dL (7-18); CALCIUM 8.9 mg/dL (8.5-10.1); CO2 32 mmol/L (21-32); CREATININE 0.6 mg/dL (0.7-1.3); GLUCOSE,RANDOM 80 mg/dL (74-106); SGOT/AST 33 U/L (15-37); SGPT/ALT 22 U/L (12-78); TOT PROT 7.2 g/dl (6.4-8.2)
--- NOTE | 2017-12-18 10:45 | PN ---
S CIWA - CIWA Score Nausea/Vomitin-No Nausea/No Vomiting Muscle Tremors: 4-Moderate,w/Arms Extend Anxiety: 4-Mod. Anxious/Guarded Agitation: 3 Paroxysmal Sweats: 1-Minimal Palms Moist Orientation: 0-Oriented Tacttile Disturbances: 0-None Auditory Disturbances: 0-None Visual Disturbances: 0-None Headache: 0-None Present CIWA-Ar Total Score: 12 [facility] Progress Note (SOAP) Subjective: ANXIETY,SLIGHT TREMORS. Objective: 12/18/17 10:44 Vital Signs 12/18/17 12/18/17 12/18/17 03:00 03:30 04:00 Temperature Pulse Rate 62 64 62 Respiratory 18 18 18 Rate Blood Pressure 12/18/17 12/18/17 12/18/17 04:30 05:00 05:30 Temperature Pulse Rate 58 L 58 L 56 L Respiratory 18 18 18 Rate Blood Pressure 12/18/17 12/18/17 12/18/17 05:54 06:00 06:30 Temperature 97 F L Pulse Rate 55 L 55 L 59 L Respiratory 18 18 18 Rate Blood Pressure 140/79 12/18/17 12/18/17 12/18/17 07:00 07:30 08:00 Temperature Pulse Rate 61 57 L 55 L Respiratory 18 18 18 Rate Blood Pressure 12/18/17 09:18 Temperature 97.0 F L Pulse Rate 70 Respiratory 18 Rate Blood Pressure 125/76 Laboratory Tests 12/17/17 12/18/17 13:34 08:00 Sodium 142 Potassium 4.5 Chloride 105 Carbon Dioxide 32 Anion Gap 5 L BUN 10 Creatinine 0.6 L Creat Clearance w eGFR > 60 Random Glucose 80 Calcium 8.9 Total Bilirubin 0.4 AST 33 ALT 22 Alkaline Phosphatase 113 Total Protein 7.2 Albumin 3.4 Urine Color Ltyellow Urine Appearance Clear Urine pH 6.0 Ur Specific [place] 1.008 Urine Protein Negative Urine Glucose (UA) Negative Urine Ketones Negative Urine Blood Negative Urine Nitrite Negative Urine Bilirubin Negative Urine Urobilinogen Negative Ur Leukocyte Esterase Negative Assessment: 12/18/17 10:44 WITHDRAWAL SX Plan: CONTINUE DETOX
--- NOTE | 2017-12-18 11:04 | CONSULT ---
[facility] Psychiatric Consult - Data Date of interview: 12/18/17 Admission source: [facility] Identifying data: Patient is a 47 year old single male, without kids, unemployed , domiciled, and supported by [facility]. This is one of multiple admissions for patient. Pt. admitted to for alcohol dependence. Substance Abuse History: Smoking Cessation. Smoking history: Current every day smoker. Have you smoked in the past 12 months: Yes. Aproximately how many cigarettes per day: 20. Cigars Per Day: 0. Hx Chewing Tobacco Use: No. Initiated information on smoking cessation: Yes. 'Breaking Loose' booklet given : 12/17/17. - Substance & Tx. History. Hx Alcohol Use: Yes. Hx Substance Use : No. Substance Use Type: Alcohol. Hx Substance Use Treatment: Yes (07/2017 [facility]) Medical History: Seizures, Peptic ulcer, Right knee due to torn meniscus in 2011 , Sx R knee meniscus repair 7 wks ago. Psychiatric History: Patient's first psychiatric contact was at 11 years of age due to mood dysregulation. Pt. reports seeing an OPD in [facility]. As an adult patient reports four psychiatric hospitalizations, most recently five months ago for depression. Pt is also known to [facility]. Pt. denies current OPD. States he is prescribed prozac 60mg + Ativan 5mg and claims to receive refills from emergency rooms. As per pharmacy claims patient received a prescritption of prozac 20mg on 10/09/17. Pt. has also been tried on trazodone and Mirtzapine. Pt. reports priapism from trazodone and and oversedation from mirtzapine. Pt. denies h/o suicide attempt. Physical/Sexual Abuse/Trauma History: Denies. Mental Status Exam - Mental Status Exam Alert and Oriented to: Time, Place, Person Cognitive Function: Good Patient Appearance: Well Groomed Mood: Hopeful Affect: Mood Congruent Patient Behavior: Appropriate, Cooperative Speech Pattern: Appropriate Voice Loudness: Normal Thought Process: Intact, Goal Oriented Thought Disorder: Not Present Hallucinations: Denies Suicidal Ideation: Denies Homicidal Ideation: Denies Insight/Judgement: Poor Sleep: Fair Appetite: Fair Gait/Station: Other (Patient ambulates with a rolling walker.) Psychiatric Findings - Problem List ([place] 1, 2,3) (1) Alcohol dependence with uncomplicated withdrawal Current Visit: Yes Status: Acute (2) Nicotine dependence Current Visit: Yes Status: Acute Qualifiers: Nicotine product type: cigarettes Substance use status: in withdrawal Qualified Code(s): F17.213 - Nicotine dependence, cigarettes, with withdrawal (3) Methadone maintenance therapy patient Current Visit: Yes Status: Chronic (4) Bipolar I disorder with depression Current Visit: Yes Status: Chronic - Initial Treatment Plan Initial Treatment Plan: Psychoeducation provided. Detox in progress. Prozac 20mg PO daily. Benefits and side effects discussed. Verbal consent given.
[2017-12-18 12:40] LABS: HEMATOCRIT 39.6 % (35.4-49); HEMOGLOBIN 13.7 GM/dL (11.7-16.9); MCH 34.3 pg (25.7-33.7); MCHC 34.5 g/dl (32.0-35.9); MEAN CELL VOLUME 99.4 fl (80-96); MEAN PLT VOLUME 8.5 fl (7.5-11.1); PLATELET COUNT 156 K/MM3 (134-434); RBC 3.99 M/mm3 (4.00-5.60); RDW 14.5 % (11.9-15.9); WHITE BLOOD COUNT 4.2 K/mm3 (4.0-10.0)
[2017-12-18] MEDS ORDERED: FLUoxetine HCL 20 MG CAPSULE (FP) PO ONE (12:55)
--- NOTE | 2017-12-18 14:35 | EKG ---
Test Reason : Blood Pressure : / mmHG Vent. Rate : 061 BPM Atrial Rate : 061 BPM P-R Int : 152 ms QRS Dur : 122 ms QT Int : 432 ms P-R-T Axes : 070 068 066 degrees QTc Int : 434 ms NORMAL SINUS RHYTHM NON-SPECIFIC INTRA-VENTRICULAR CONDUCTION DELAY BORDERLINE ECG WHEN COMPARED WITH ECG OF 17-DEC-2017 15:47, PREMATURE SUPRAVENTRICULAR COMPLEXES ARE NO LONGER PRESENT NON-SPECIFIC INTRA-VENTRICULAR CONDUCTION DELAY HAS REPLACED RIGHT BUNDLE BRANCH BLOCK Confirmed by MIGNON SINGH MD ([id number]) on 12/18/2017 2:34:51 PM Referred By: Confirmed By:MGINON SINGH MD
--- NOTE | 2017-12-18 14:36 | EKG ---
Test Reason : Blood Pressure : / mmHG Vent. Rate : 067 BPM Atrial Rate : 067 BPM P-R Int : 112 ms QRS Dur : 122 ms QT Int : 432 ms P-R-T Axes : 070 078 065 degrees QTc Int : 456 ms SINUS RHYTHM WITH PREMATURE SUPRAVENTRICULAR COMPLEXES RIGHT BUNDLE BRANCH BLOCK ABNORMAL ECG WHEN COMPARED WITH ECG OF 17-AUG-2017 22:36, PREMATURE SUPRAVENTRICULAR COMPLEXES ARE NOW PRESENT Confirmed by FRANCISCO NEIL, MIGNON ([id number]) on 12/18/2017 2:36:23 PM Referred By: Confirmed By:MIGNON SINGH MD
--- NOTE | 2017-12-18 14:52 | PN ---
[facility] Progress Note Note: Patient slipped and fell while getting up from table in dining room. Patient landed on bilateral knees and elbows (olecranon area). Fall was witnessed by ELLIE Gamboa. Patient denies LOC, N/V, and Dizziness. Patient A & O X 3, able to ambulate with walker that he brought with him at upon admission. Mild swelling and erythema noted on bilateral patellas. no bleeding, wounds, or unusual discharge noted on either elbow or knee. VS stable. [facility] FALL PROTOCOL # 2 implemented. PRN Ibuprofen (patient has history of peptic ulcer, but reports that ulcer resolved several years ago). Rest and apply ice to affected areas PRN. 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
[2017-12-18] MEDS: THIAMINE HCL 100 MG TABLET (FP) PO SCH (22:45)
[2017-12-18] MEDS: METHYL SALICYLATE/MENTHOL OINT 30 GM TUBE TP SCH (22:48)
[2017-12-19] MEDS: METHADONE HCL 40 MG DISPERSABLE TABLET PO SCH (06:08)
[2017-12-19] MEDS: DOCUSATE SODIUM 100 MG CAPSULE (FP) PO SCH ×3 (06:09→22:31)
[2017-12-19] MEDS: GABAPENTIN 300 MG CAPSULE (FP) PO SCH ×3 (06:09→22:31)
[2017-12-19] MEDS: chlordiazePOXIDE HCL 25 MG CAPSULE PO SCH ×2 (06:09→12:05)
[2017-12-19] MEDS: BACLOFEN 10 MG TABLET (FP) PO SCH ×2 (10:16→22:31)
[2017-12-19] MEDS: NICOTINE 21 MG/24 HOURS TOPICAL PATCH TD SCH (10:16)
[2017-12-19] MEDS: PRENATAL VITAMINS W/ FOLIC ACID TABLET (FP) PO SCH (10:16)
[2017-12-19] MEDS: BACITRACIN 0.9 GM PACKET TP SCH ×4 (10:16→22:30)
[2017-12-19] MEDS: FLUoxetine HCL 20 MG CAPSULE (FP) PO SCH (10:16)
[2017-12-19] MEDS: METHYL SALICYLATE/MENTHOL OINT 30 GM TUBE TP SCH ×2 (10:17→22:47)
[2017-12-19] MEDS: RANITIDINE HCL 150 MG TABLET (FP) PO SCH ×2 (10:18→22:31)
--- NOTE | 2017-12-19 12:11 | PN ---
S CIWA - CIWA Score Nausea/Vomitin-No Nausea/No Vomiting Muscle Tremors: 5 Anxiety: 4-Mod. Anxious/Guarded Agitation: 4-Moderately Restless Paroxysmal Sweats: No Perspiration Orientation: 0-Oriented Tacttile Disturbances: 0-None Auditory Disturbances: 0-None Visual Disturbances: 0-None Headache: 0-None Present CIWA-Ar Total Score: 13 [facility] Progress Note (SOAP) Subjective: C/O TREMORS, ANXIETY, CHRONIC MUSCLE SPASMS-STATES BACLOFEN HELPS. PT OOB AMBULATING WITH WALKER. Objective: 12/19/17 12:08 Vital Signs 12/19/17 12/19/17 12/19/17 05:40 09:11 09:48 Temperature 96.8 F L 97.7 F 97.3 F L Pulse Rate 57 L 86 86 Respiratory 18 18 16 Rate Blood Pressure 165/93 93/61 99/66 Laboratory Tests 12/17/17 12/18/17 12/18/17 13:34 08:00 08:00 WBC 4.2 RBC 3.99 L Hgb 13.7 Hct 39.6 MCV 99.4 H MCH 34.3 H MCHC 34.5 RDW 14.5 Plt Count 156 MPV 8.5 Sodium 142 Potassium 4.5 Chloride 105 Carbon Dioxide 32 Anion Gap 5 L BUN 10 Creatinine 0.6 L Creat Clearance w eGFR > 60 Random Glucose 80 Calcium 8.9 Total Bilirubin 0.4 AST 33 ALT 22 Alkaline Phosphatase 113 Total Protein 7.2 Albumin 3.4 Urine Color Ltyellow Urine Appearance Clear Urine pH 6.0 Ur Specific [place] 1.008 Urine Protein Negative Urine Glucose (UA) Negative Urine Ketones Negative Urine Blood Negative Urine Nitrite Negative Urine Bilirubin Negative Urine Urobilinogen Negative Ur Leukocyte Esterase Negative RPR Titer 12/18/17 08:00 WBC RBC Hgb Hct MCV MCH MCHC RDW Plt Count MPV Sodium Potassium Chloride Carbon Dioxide Anion Gap BUN Creatinine Creat Clearance w eGFR Random Glucose Calcium Total Bilirubin AST ALT Alkaline Phosphatase Total Protein Albumin Urine Color Urine Appearance Urine pH Ur Specific [place] Urine Protein Urine Glucose (UA) Urine Ketones Urine Blood Urine Nitrite Urine Bilirubin Urine Urobilinogen Ur Leukocyte Esterase RPR Titer Nonreactive Assessment: 12/19/17 12:08 WITHDRAWAL SX Plan: CONTINUE DETOX MONITOR PT SAFETY
[2017-12-19] MEDS: chlordiazePOXIDE 5 MG CAPSULE PO SCH ×2 (18:44→22:31)
[2017-12-19] MEDS: THIAMINE HCL 100 MG TABLET (FP) PO SCH (22:30)
[2017-12-19] MEDS: IBUPROFEN 400 MG TABLET (FP) PO PRN (22:32)
[2017-12-20] MEDS: chlordiazePOXIDE 5 MG CAPSULE PO SCH ×2 (05:56→10:29)
[2017-12-20] MEDS: METHADONE HCL 40 MG DISPERSABLE TABLET PO SCH (05:56)
[2017-12-20] MEDS: GABAPENTIN 300 MG CAPSULE (FP) PO SCH ×3 (05:56→22:38)
[2017-12-20] MEDS: DOCUSATE SODIUM 100 MG CAPSULE (FP) PO SCH ×3 (05:56→22:38)
[2017-12-20] MEDS: RANITIDINE HCL 150 MG TABLET (FP) PO SCH ×2 (10:29→22:38)
[2017-12-20] MEDS: FLUoxetine HCL 20 MG CAPSULE (FP) PO SCH (10:29)
[2017-12-20] MEDS: BACLOFEN 10 MG TABLET (FP) PO SCH ×2 (10:29→22:38)
[2017-12-20] MEDS: BACITRACIN 0.9 GM PACKET TP SCH ×4 (10:29→22:40)
[2017-12-20] MEDS: PRENATAL VITAMINS W/ FOLIC ACID TABLET (FP) PO SCH (10:29)
[2017-12-20] MEDS: METHYL SALICYLATE/MENTHOL OINT 30 GM TUBE TP SCH ×2 (10:29→22:40)
[2017-12-20] MEDS: NICOTINE 21 MG/24 HOURS TOPICAL PATCH TD SCH (10:30)
[2017-12-20] MEDS: ACETAMINOPHEN 325 MG TABLET (FP) PO PRN (12:14)
--- NOTE | 2017-12-20 13:28 | PN ---
[facility] Progress Note Note: Psychiatry Attending's note : Approached by patient. Complaint : insomnia. Request : ambien . Mr Frances claims : 5 mg as effective. Plan : Ambien 5 mg po hs prn. Risk of parasomnia : discussed with patient. Agrees.
--- NOTE | 2017-12-20 15:59 | PN ---
[facility] Progress Note (SOAP) Subjective: Anxious, Tremors, Diarrhea. Objective: PATIENT A & O X 3, OBSERVED AMBULATING ON UNIT WITH ASSISTANCE OF A WALKER. NO ACUTE DISTRESS. 12/20/17 15:59 Vital Signs Temperature 97.1 F L 12/20/17 13:22 Pulse Rate 86 12/20/17 13:22 Respiratory Rate 18 12/20/17 13:22 Blood Pressure 98/64 12/20/17 13:22 O2 Sat by Pulse Oximetry (%) Laboratory Tests 12/17/17 12/18/17 12/18/17 13:34 08:00 08:00 WBC 4.2 RBC 3.99 L Hgb 13.7 Hct 39.6 MCV 99.4 H MCH 34.3 H MCHC 34.5 RDW 14.5 Plt Count 156 MPV 8.5 Sodium 142 Potassium 4.5 Chloride 105 Carbon Dioxide 32 Anion Gap 5 L BUN 10 Creatinine 0.6 L Creat Clearance w eGFR > 60 Random Glucose 80 Calcium 8.9 Total Bilirubin 0.4 AST 33 ALT 22 Alkaline Phosphatase 113 Total Protein 7.2 Albumin 3.4 Urine Color Ltyellow Urine Appearance Clear Urine pH 6.0 Ur Specific [place] 1.008 Urine Protein Negative Urine Glucose (UA) Negative Urine Ketones Negative Urine Blood Negative Urine Nitrite Negative Urine Bilirubin Negative Urine Urobilinogen Negative Ur Leukocyte Esterase Negative RPR Titer 12/18/17 08:00 WBC RBC Hgb Hct MCV MCH MCHC RDW Plt Count MPV Sodium Potassium Chloride Carbon Dioxide Anion Gap BUN Creatinine Creat Clearance w eGFR Random Glucose Calcium Total Bilirubin AST ALT Alkaline Phosphatase Total Protein Albumin Urine Color Urine Appearance Urine pH Ur Specific [place] Urine Protein Urine Glucose (UA) Urine Ketones Urine Blood Urine Nitrite Urine Bilirubin Urine Urobilinogen Ur Leukocyte Esterase RPR Titer Nonreactive LABS NOTED. Assessment: 12/20/17 16:00 WITHDRAWAL SYMPTOMS. Plan: CONTINUE DETOX. INCREASE DAILY PO FLUID INTAKE. DUE TO VERBAL ALTERCATION WITH OTHER PATIENT, PATIENT TO BE TRANSFERRED TO DETOX UNIT [address] [place] [address] FOR SAFETY. DUE TO AMBULATORY AND MOVEMENT DIFFICULTIES AND DUE TO HISTORY OF RECENT FALL, PATIENT PERMITTED TO REMAIN ON DETOX UNIT UNTIL 12/22/2017, AT WHICH TIME HE WILL PURSUE REHAB ADMISSION.
[2017-12-20] MEDS: chlordiazePOXIDE HCL 10 MG CAPSULE PO SCH ×2 (16:48→22:38)
[2017-12-20] MEDS ORDERED: ZOLPIDEM TARTRATE 5 MG TABLET PO PRN (22:00)
[2017-12-20] MEDS: THIAMINE HCL 100 MG TABLET (FP) PO SCH (22:38)
[2017-12-20] MEDS: IBUPROFEN 400 MG TABLET (FP) PO PRN (22:39)
[2017-12-21] MEDS: METHADONE HCL 40 MG DISPERSABLE TABLET PO SCH (05:18)
[2017-12-21] MEDS: GABAPENTIN 300 MG CAPSULE (FP) PO SCH (05:18)
[2017-12-21] MEDS: chlordiazePOXIDE HCL 10 MG CAPSULE PO SCH ×2 (05:18→10:19)
[2017-12-21] MEDS: DOCUSATE SODIUM 100 MG CAPSULE (FP) PO SCH (05:18)
[2017-12-21 09:18] VITALS: BP 85/56; PULSE 92; TEMP 97.6
[2017-12-21] MEDS: FLUoxetine HCL 20 MG CAPSULE (FP) PO SCH (10:18)
[2017-12-21] MEDS: NICOTINE 21 MG/24 HOURS TOPICAL PATCH TD SCH (10:19)
[2017-12-21] MEDS: PRENATAL VITAMINS W/ FOLIC ACID TABLET (FP) PO SCH (10:19)
[2017-12-21] MEDS: METHYL SALICYLATE/MENTHOL OINT 30 GM TUBE TP SCH (10:19)
[2017-12-21] MEDS: BACLOFEN 10 MG TABLET (FP) PO SCH (10:19)
[2017-12-21] MEDS: RANITIDINE HCL 150 MG TABLET (FP) PO SCH (10:19)
[2017-12-21] MEDS: BACITRACIN 0.9 GM PACKET TP SCH (10:22)
--- NOTE | 2017-12-21 13:04 | PN ---
[facility] Progress Note (SOAP) Subjective: pt states he is feeling well- and would like to go home- Objective: 12/21/17 13:00 Vital Signs - 24 hr 12/20/17 12/20/17 12/20/17 13:22 17:05 22:13 Temperature 97.1 F L 97.7 F 97.2 F L Pulse Rate 86 81 76 Respiratory 18 18 16 Rate Blood Pressure 98/64 101/63 122/78 12/21/17 12/21/17 12/21/17 00:30 06:18 06:30 Temperature 97.0 F L Pulse Rate 74 Respiratory 18 18 18 Rate Blood Pressure 121/77 12/21/17 09:17 Temperature 97.6 F Pulse Rate 92 H Respiratory 16 Rate Blood Pressure 85/56 Laboratory Tests 12/17/17 12/18/17 12/18/17 13:34 08:00 08:00 WBC 4.2 RBC 3.99 L Hgb 13.7 Hct 39.6 MCV 99.4 H MCH 34.3 H MCHC 34.5 RDW 14.5 Plt Count 156 MPV 8.5 Sodium 142 Potassium 4.5 Chloride 105 Carbon Dioxide 32 Anion Gap 5 L BUN 10 Creatinine 0.6 L Creat Clearance w eGFR > 60 Random Glucose 80 Calcium 8.9 Total Bilirubin 0.4 AST 33 ALT 22 Alkaline Phosphatase 113 Total Protein 7.2 Albumin 3.4 Urine Color Ltyellow Urine Appearance Clear Urine pH 6.0 Ur Specific [place] 1.008 Urine Protein Negative Urine Glucose (UA) Negative Urine Ketones Negative Urine Blood Negative Urine Nitrite Negative Urine Bilirubin Negative Urine Urobilinogen Negative Ur Leukocyte Esterase Negative RPR Titer 12/18/17 08:00 WBC RBC Hgb Hct MCV MCH MCHC RDW Plt Count MPV Sodium Potassium Chloride Carbon Dioxide Anion Gap BUN Creatinine Creat Clearance w eGFR Random Glucose Calcium Total Bilirubin AST ALT Alkaline Phosphatase Total Protein Albumin Urine Color Urine Appearance Urine pH Ur Specific [place] Urine Protein Urine Glucose (UA) Urine Ketones Urine Blood Urine Nitrite Urine Bilirubin Urine Urobilinogen Ur Leukocyte Esterase RPR Titer Nonreactive pt uses walker to get around since fall in 201312/21/17 13:05 Assessment: 12/21/17 13:05 pt finished detox Plan: f/u with PCP
--- NOTE | 2017-12-21 13:10 | DS ---
[facility] Detox Discharge Summary Admission Date: 12/17/17 Discharge Date: 12/21/17 - History Present History: Alcohol Dependence, MMTP - Physical Exam Results Vital Signs: Vital Signs Temperature 97.6 F 12/21/17 09:17 Pulse Rate 92 H 12/21/17 09:17 Respiratory Rate 16 12/21/17 09:17 Blood Pressure 85/56 12/21/17 09:17 O2 Sat by Pulse Oximetry (%) Pertinent Admission Physical Exam Findings: 47 years old with long history of alcohol nicotine dependence has constipation neuropathy ambulate with walker since 2013 fall - Treatment Hospital Course: Detox Protocol Followed, Detoxed Safely, Responded well, Discharged Condition Good - Medication Discharge Medications: Ambulatory Orders Docusate Sodium [Colace -] 100 mg PO HS 12/17/17 Methadone [Dolophine -] 80 mg PO DAILY 12/17/17 Omeprazole Magnesium [Prilosec Otc] 20 mg PO DAILY 12/17/17 Baclofen [Lioresal -] 10 mg PO BID #30 tablet 12/21/17 Docusate Sodium [Colace -] 100 mg PO TID capsule 12/21/17 Fluoxetine HCl [Prozac -] 20 mg PO DAILY #30 capsule 12/21/17 Gabapentin [Neurontin -] 600 mg PO TID #90 capsule 12/21/17 - Diagnosis (1) Alcohol dependence with uncomplicated withdrawal Current Visit: Yes Status: Acute (2) 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
== END 2017-12-21 13:00 | disposition home or self-care (01) | DRG 773 ==
LOC: YASAS 12:12 → Y3N 14:16
PROVIDERS: ADMIT Surgery; ATTEND Surgery
PROC: HZ2ZZZZ Detoxification Services for Substance Abuse Treatment (ICD-10-PCS; principal; 2017-12-17)
DX: F10.230 Alcohol dependence with withdrawal, uncomplicated (principal); F11.20 Opioid dependence, uncomplicated; F17.213 Nicotine dependence, cigarettes, with withdrawal; F31.89 Other bipolar disorder; G82.54 Quadriplegia, C5-C7 incomplete; G40.509 Epileptic seizures related to external causes, not intractable, without status epilepticus; B18.2 Chronic viral hepatitis C; R32 Unspecified urinary incontinence; R63.4 Abnormal weight loss; Z68.20 Body mass index [BMI] 20.0-20.9, adult; R26.89 Other abnormalities of gait and mobility; Z99.89 Dependence on other enabling machines and devices; Z87.19 Personal history of other diseases of the digestive system; Z88.8 Allergy status to other drugs, medicaments and biological substances
CPT/HCPCS: 36415; 80053; 81003; 85027; 86593; 93005; 93010; J0475

== ENCOUNTER 2018-12-07 14:37 | Inpatient (IN) | payer OTHER ==
[2018-12-07 19:24] VITALS: BMI 23.0
--- NOTE | 2018-12-07 21:05 | HP ---
CIWA Score Nausea/Vomitin-Int. Nausea w/Dry Heave Muscle Tremors: 4-Moderate,w/Arms Extend Anxiety: 2 Agitation: 0-Normal Activity Paroxysmal Sweats: 2 Orientation: 1-Uncertain about Date Tacttile Disturbances: 0-None Auditory Disturbances: 0-None Visual Disturbances: 0-None Headache: 3-Moderate CIWA-Ar Total Score: 16 - Admission Criteria OASAS Guidelines: Admission for Medically Managed Detox: Requires at least one of the followin. CIWA greater than 12 2. Seizures within the past 24 hours 3. Delirium tremens within the past 24 hours 4. Hallucinations within the past 24 hours 5. Acute intervention needed for co occurring medical disorder 6. Acute intervention needed for co occurring psychiatric disorder 7. Severe withdrawal that cannot be handled at a lower level of care (continued vomiting, continued diarrhea, abnormal vital signs) requiring intravenous medication and/or fluids 8. Admission ROS [facility] - [facility] Chief Complaint: Alcohol withdrawal symptoms Allergies/Adverse Reactions: Allergies Allergy/AdvReac Type Severity Reaction Status Date / Time phenytoin Allergy Severe Rash Verified 12/07/18 19:17 History of Present Illness: 48 years old male with a long history of alcohol dependence is seeking admission to detox. Patient has been in previous detox and reports 3 years of sobriety ([id number]). He has medical history of GERD, Hep. C and seizures. He reports that he has cervical spinal cord injury from a fall in 2013 and is an incomplete quadriplegic. He denies suicide attempt and suicidal ideation at this time. Patient is status post a fall on 12/06/2018 at home. He has bruises to his right knee, right elbow and a burn to right hand. Patient is on Methadone 80mg tablet oral daily with [facility]. Dose is yet to be verified. Exam Limitations: Physical Impairment - Ebola screening Have you traveled outside of the country in the last 21 days: No Have you had contact with anyone from an Ebola affected area: No Do you have a fever: No - Review of Systems Constitutional: Chills, Malaise, Night Sweats, Changes in sleep EENT: reports: No Symptoms Reported Respiratory: reports: No Symptoms reported Cardiac: reports: No Symptoms Reported GI: reports: Constipated, Nausea, Poor Appetite, Poor Fluid Intake, Abdominal cramping : reports: No Symptoms Reported Musculoskeletal: reports: Back Pain, Joint Pain, Muscle Pain Integumentary: reports: Dryness, Flushing Neuro: reports: Headache, Tremors, Weakness Endocrine: reports: No Symptoms Reported Hematology: reports: No Symptoms Reported Psychiatric: reports: Mood/Affect Appropiate, Anxious, Depressed Other Systems: Reviewed and Negative Patient History - Patient Medical History Hx Anemia: No Hx Asthma: No Hx Chronic Obstructive Pulmonary Disease (COPD): No Hx Cancer: No Hx Cardiac Disorders: No Hx Congestive Heart Failure: No Hx Hypertension: No Hx Hypercholesterolemia: No Hx Pacemaker: No HX Cerebrovascular Accident: No Hx Seizures: Yes (LAST 2007) Hx Dementia: No Hx Diabetes: No Hx Gastrointestinal Disorders: Yes (GERD - Omeprazole) Hx Liver Disease: No Hx Genitourinary Disorders: No Hx Sexually Transmitted Disorders: No Hx Renal Disease (ESRD): No Hx Thyroid Disease: No Hx Human Immunodeficiency Virus (HIV): No Hx Hepatitis C: Yes (Not treated) Hx Depression: No Hx Suicide Attempt: No Hx Bipolar Disorder: Yes (Not on medication) Hx Schizophrenia: No - Patient Surgical History Past Surgical History: Yes Hx Neurologic Surgery: Yes (neck in 2013) Hx Cataract Extraction: No Hx Cardiac Surgery: No Hx Lung Surgery: No Hx Breast Surgery: No Hx Breast Biopsy: No Hx Abdominal Surgery: Yes ([place] U[place]) Hx Appendectomy: No Hx Cholecystectomy: No Hx Genitourinary Surgery: No Hx Section: No Hx Orthopedic Surgery: Yes (RIGHT KNEE DUE TO TORN MENISCUS IN 2011) Other Surgical History: Sx R knee meniscus repair 7 wks ago. Anesthesia Reaction: No - PPD History Previous Implant?: Yes Documented Results: Negative w/proof Implanted On Prior [facility] Admission?: Yes Date: 08/19/17 Results: 0 mm PPD to be Administered?: Yes - Reproductive History Patient is a Female of Child Bearing Age (11 -55 yrs old): No (male) - Smoking Cessation Smoking history: Current every day smoker Have you smoked in the past 12 months: Yes Aproximately how many cigarettes per day: 20 Cigars Per Day: 0 Hx Chewing Tobacco Use: No Initiated information on smoking cessation: Yes 'Breaking Loose' booklet given: 12/07/18 - Substance & Tx. History Hx Alcohol Use: Yes Hx Substance Use: Yes Substance Use Type: Alcohol, Cocaine Hx Substance Use Treatment: Yes ([facility]) - Substances abused Alcohol Substance route: Oral Frequency: Daily Amount used: liquor- 1/2 pint of Vodka, beer- 2 six pack Age of first use: 8 Date of last use: 12/07/18 Family Disease History - Family Disease History Family Disease History: Diabetes: Father, Heart Disease: Mother, Brother Admission Physical Exam [facility] - Vital Signs Vital Signs: Vital Signs - 24 hr 12/07/18 12/07/18 19:19 20:32 Temperature 97.6 F 97.6 F Pulse Rate 69 69 Respiratory 18 18 Rate Blood Pressure 90/57 L 90/57 L - Physical General Appearance: Yes: Moderate Distress, Tremorous, Anxious HEENTM: Yes: Nasal Congestion Respiratory: Yes: Lungs Clear, Normal Breath Sounds, No Respiratory Distress Neck: Yes: Supple Breast: Yes: Breast Exam Deferred Cardiology: Yes: Tachycardia Abdominal: Yes: Normal Bowel Sounds Genitourinary: Yes: Within Normal Limits Back: Yes: Normal Inspection Musculoskeletal: Yes: Within Normal Limits Extremities: Yes: Tremors Neurological: Yes: Alert, Normal Mood/Affect Integumentary: Yes: Warm - Diagnostic (1) Alcohol dependence with uncomplicated withdrawal Current Visit: Yes Status: Chronic (2) Nicotine dependence Current Visit: Yes Status: Chronic Qualifiers: Nicotine product type: cigarettes Substance use status: in withdrawal Qualified Code(s): F17.213 - Nicotine dependence, cigarettes, with withdrawal (3) Cocaine dependence with withdrawal Current Visit: Yes Status: Chronic (4) GERD (gastroesophageal reflux disease) Current Visit: Yes Status: Chronic Qualifiers: Esophagitis presence: esophagitis presence not specified Qualified Code(s) : K21.9 - Gastro-esophageal reflux disease without esophagitis (5) 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 Current Visit: Yes Status: Chronic (6) Methadone maintenance therapy patient Current Visit: Yes Status: Chronic (7) Seizure disorder Current Visit: No Status: Chronic Comment: on gabapentin (8) Walker as ambulation aid Current Visit: Yes Status: Chronic Cleared for Admission [facility] - Detox or Rehab [facility] Level of Care: Medically Managed Detox Regimen/Protocol: Librium Claeared for Rehab Admission: No Breathalyzer - Breathalyzer Breathalyzer: 0.083 Urine Drug Screen - Test Device Lot number: [id number] Expiration date: 09/22/20 - Control Is test valid?: Yes - Results Drug screen NEGATIVE: No Urine drug screen results: EMELINA-Cocaine, MTD-Methadone Inpatient Rehab Admission - Rehab Decision to Admit Inpatient rehab admission?: No
[2018-12-07] MEDS ORDERED: MAGNESIUM HYDROX 2400MG/30ML ORAL SUSPENSION 30 ML CUP PO PRN (21:22)
[2018-12-07] MEDS ORDERED: METHOCARBAMOL 500 MG TABLET PO PRN (21:22)
[2018-12-07] MEDS ORDERED: BISMUTH SUBSALICYLATE 524 MG/30 ML UD PO PRN (21:22)
[2018-12-07] MEDS ORDERED: IBUPROFEN 400 MG TABLET (FP) PO PRN (21:22)
[2018-12-07] MEDS ORDERED: MENTHOL/PHENOL 1 EACH UD MM PRN (21:22)
[2018-12-07] MEDS ORDERED: MAGNESIUM CITRATE 300 ML BOTTLE PO PRN (21:22)
[2018-12-07] MEDS ORDERED: MELATONIN 5 MG TABLETS PO PRN (21:22)
[2018-12-07] MEDS ORDERED: NICOTINE POLACRILEX 2 MG GUM BUC PRN (21:22)
[2018-12-07] MEDS ORDERED: MAG HYDROX/AL HYDROX/SIMETH 30 ML UNIT-DOSE CUP PO PRN (21:22)
[2018-12-07] MEDS ORDERED: hydrOXYzine PAMOATE 25 MG CAPSULE (FP) PO PRN (21:22)
[2018-12-07] MEDS ORDERED: ACETAMINOPHEN 325 MG TABLET (FP) PO PRN ×2 (21:22)
[2018-12-07] MEDS ORDERED: ONDANSETRON *ODT* 4 MG TABLET SL PRN (21:22)
[2018-12-07] MEDS: THIAMINE HCL 100 MG TABLET (FP) PO SCH (22:52)
[2018-12-07] MEDS: chlordiazePOXIDE HCL 25 MG CAPSULE PO SCH (22:54)
[2018-12-08] MEDS: chlordiazePOXIDE HCL 25 MG CAPSULE PO SCH ×4 (04:52→22:30)
[2018-12-08] MEDS ORDERED: INSULIN SLIDING SCALE (NOVOLOG) 1 VIAL SQ ONE (08:07)
--- NOTE | 2018-12-08 09:46 | PN ---
S CIWA - CIWA Score Nausea/Vomitin-Mild Nausea/No Vomiting Muscle Tremors: 3 Anxiety: 3 Agitation: 3 Paroxysmal Sweats: 1-Minimal Palms Moist Orientation: 0-Oriented Tacttile Disturbances: 1-Very Mild Itch/Numbness Auditory Disturbances: 0-None Visual Disturbances: 0-None Headache: 1-Very Mild CIWA-Ar Total Score: 13 [facility] Progress Note (SOAP) Subjective: change protonix to tablet formula 48 years old male admitted on 12/07/18 for alcohol withdrawal sx medical history of cervical spinal surgery ambulating with walker left arm finger contraction noted feeling ok today able to tolerate food and fluid well feeling tired limited activities around the room today report on methadone 80 mg po daily waiting for verification Objective: 12/08/18 09:53 Vital Signs Temperature 96.7 F L 12/08/18 09:16 Pulse Rate 64 12/08/18 09:16 Respiratory Rate 20 12/08/18 09:16 Blood Pressure 102/63 12/08/18 09:16 O2 Sat by Pulse Oximetry (%) lab pending Assessment: 12/08/18 09:54 alcohol withdrawal sx Plan: continue alcohol detox
[2018-12-08] MEDS ORDERED: PANTOPRAZOLE SOD 40 MG SUSPENSION PACKET PO SCH (10:00)
[2018-12-08] MEDS: NICOTINE 21 MG/24 HOURS TOPICAL PATCH TD SCH (10:35)
[2018-12-08] MEDS: PRENATAL VITAMINS W/ FOLIC ACID TABLET (FP) PO SCH (10:36)
[2018-12-08] MEDS: PANTOPRAZOLE 40 MG TABLET (FP) PO SCH (10:37)
[2018-12-08] MEDS ORDERED: METHADONE HCL 40 MG DISPERSABLE TABLET PO ONE (11:25)
--- NOTE | 2018-12-08 11:40 | CONSULT ---
[facility] Psychiatric Consult - Data Date of interview: 12/08/18 Admission source: [facility] Identifying data: Patient is a 48 year old single male, without children, unemployed, and is supported by [facility]. This is one of multiple admissions for patient. Patient admitted to for alcohol dependence. Substance Abuse History: Smoking Cessation. Smoking history: Current every day smoker. Have you smoked in the past 12 months: Yes. Aproximately how many cigarettes per day: 20. Cigars Per Day: 0. Hx Chewing Tobacco Use: No. Initiated information on smoking cessation: Yes. 'Breaking Loose' booklet given : 12/07/18. - Substance & Tx. History. Hx Alcohol Use: Yes. Hx Substance Use : Yes. Substance Use Type: Alcohol, Cocaine. Hx Substance Use Treatment: Yes ( [facility]). - Substances abused. Alcohol. Substance route: Oral. Frequency: Daily. Amount used: liquor- 1/2 pint of Vodka, beer- 2 six pack. Age of first use: 8. Date of last use: 12/07/18 Medical History: Significant for a history of spinal cord injury in 2012 ( incomplete quadriplegia),GERD,incontinence,hepatitis C,seizure disorder, Right knee due to torn meniscus in 2011, Sx R knee meniscus repair Psychiatric History: Patient's first psychiatric contact was at 11 years of age at [facility] due to mood dysregulation. As an adult patient reports h/ o approximately five psychiatric hospitalizations, most recently at [facility] in April of 2018 for depression. Pt is also known to [facility]. Mr. Frances reports history of noncompliance to outpatient psychiatric treatment. Patient has been prescribed prozac, ativan, lithum, seroquel, and mirtazapine in the past. He most recently took prozac 40mg three weeks ago. Mr. Frances receives refills from the emergency room. Pt. reports priapism from trazodone and and oversedation from mirtzapine. Pt. denies h/o suicide attempt. At present patient reports feeling fine and is requesting to resume prozac. Physical/Sexual Abuse/Trauma History: denies. Mental Status Exam - Mental Status Exam Alert and Oriented to: Time, Place, Person Cognitive Function: Good Patient Appearance: Well Groomed Mood: Euthymic Affect: Mood Congruent Patient Behavior: Cooperative Speech Pattern: Appropriate Voice Loudness: Normal Thought Process: Goal Oriented Thought Disorder: Not Present Hallucinations: Denies Suicidal Ideation: Denies Homicidal Ideation: Denies Insight/Judgement: Poor Sleep: Poorly Appetite: Fair Gait/Station: Other (Patient ambulates with a rolling walker.) Psychiatric Findings - Problem List ([place] 1, 2,3) (1) Cocaine dependence Current Visit: Yes Status: Acute (2) Alcohol dependence with uncomplicated withdrawal Current Visit: Yes Status: Chronic (3) Nicotine dependence Current Visit: Yes Status: Chronic Qualifiers: Nicotine product type: cigarettes Substance use status: in withdrawal Qualified Code(s): F17.213 - Nicotine dependence, cigarettes, with withdrawal (4) Depressive disorder Current Visit: Yes Status: Chronic (5) Bipolar II disorder Current Visit: No Status: Suspected - Initial Treatment Plan Initial Treatment Plan: Psychoeducation provided. Detoxification in progress. Will order Prozac 20mg daily. Benefits and side effects discussed. Verbal consent given.
[2018-12-08 12:14] LABS: HEMATOCRIT 37.3 % (35.4-49); HEMOGLOBIN 13.1 GM/dL (11.7-16.9); MCH 35.6 pg (25.7-33.7); MCHC 35.1 g/dl (32.0-35.9); MEAN CELL VOLUME 101.3 fl (80-96); MEAN PLT VOLUME 8.6 fl (7.5-11.1); RBC 3.68 M/mm3 (4.00-5.60); RDW 15.4 % (11.9-15.9); WHITE BLOOD COUNT 4.7 K/mm3 (4.0-10.0)
[2018-12-08 12:30] LABS: ALBUMIN 3.3 g/dl (3.4-5.0); BILIRUBIN,TOTAL 0.4 mg/dL (0.2-1); BLOOD UREA NITROGEN 15.2 mg/dL (7-18); CALCIUM 8.8 mg/dL (8.5-10.1); CREATININE 0.6 mg/dL (0.55-1.3); POTASSIUM 4.6 mmol/L (3.5-5.1); TOT PROT 6.6 g/dl (6.4-8.2)
[2018-12-08 13:18] LABS: PLATELET COUNT 176 K/MM3 (134-434)
[2018-12-08] MEDS: chlordiazePOXIDE HCL 25 MG CAPSULE PO PRN (14:45)
--- NOTE | 2018-12-08 14:46 | EKG ---
Test Reason : Blood Pressure : / mmHG Vent. Rate : 065 BPM Atrial Rate : 065 BPM P-R Int : 160 ms QRS Dur : 118 ms QT Int : 422 ms P-R-T Axes : 073 071 062 degrees QTc Int : 438 ms NORMAL SINUS RHYTHM NON-SPECIFIC INTRA-VENTRICULAR CONDUCTION DELAY BORDERLINE ECG WHEN COMPARED WITH ECG OF 18-DEC-2017 06:53, NO SIGNIFICANT CHANGE WAS FOUND Confirmed by Brent Guerra MD ([id number]) on 12/08/2018 2:45:36 PM Referred By: Confirmed By:Brent Guerra MD
[2018-12-08] MEDS: THIAMINE HCL 100 MG TABLET (FP) PO SCH (22:30)
[2018-12-09] MEDS: chlordiazePOXIDE HCL 25 MG CAPSULE PO PRN ×3 (03:50→20:39)
[2018-12-09] MEDS: METHADONE HCL 40 MG DISPERSABLE TABLET PO SCH (06:43)
[2018-12-09] MEDS: chlordiazePOXIDE HCL 25 MG CAPSULE PO SCH ×4 (06:43→22:28)
[2018-12-09] MEDS: FLUoxetine HCL 20 MG CAPSULE (FP) PO SCH (10:19)
[2018-12-09] MEDS: PRENATAL VITAMINS W/ FOLIC ACID TABLET (FP) PO SCH (10:19)
[2018-12-09] MEDS: PANTOPRAZOLE 40 MG TABLET (FP) PO SCH (10:19)
[2018-12-09] MEDS: NICOTINE 21 MG/24 HOURS TOPICAL PATCH TD SCH (10:23)
--- NOTE | 2018-12-09 11:45 | PN ---
[facility] CIWA - CIWA Score Nausea/Vomitin-Mild Nausea/No Vomiting Muscle Tremors: 3 Anxiety: 3 Agitation: 2 Paroxysmal Sweats: 1-Minimal Palms Moist Orientation: 0-Oriented Tacttile Disturbances: 1-Very Mild Itch/Numbness Auditory Disturbances: 0-None Visual Disturbances: 0-None Headache: 0-None Present CIWA-Ar Total Score: 11 S Progress Note (SOAP) Subjective: REPORT LONG HISTORY OF NEUROGENIC PAIN ON BOTH LEGS AND SPINAL TREATED WITH NEURONTIN 600 MG PO TID LAST DOSE "FEW MONTHS AGO" BEGIN NEURONTIN 300 MG PO TID Objective: 12/09/18 11:44 Vital Signs Temperature 97.1 F L 12/09/18 09:22 Pulse Rate 68 12/09/18 09:22 Respiratory Rate 18 12/09/18 09:22 Blood Pressure 92/62 12/09/18 09:22 O2 Sat by Pulse Oximetry (%) Laboratory Last Values WBC 4.7 K/mm3 (4.0-10.0) 12/08/18 07:00 RBC 3.68 M/mm3 (4.00-5.60) L 12/08/18 07:00 Hgb 13.1 GM/dL (11.7-16.9) 12/08/18 07:00 Hct 37.3 % (35.4-49) 12/08/18 07:00 MCV 101.3 fl (80-96) H 12/08/18 07:00 MCH 35.6 pg (25.7-33.7) H 12/08/18 07:00 MCHC 35.1 g/dl (32.0-35.9) 12/08/18 07:00 RDW 15.4 % (11.9-15.9) 12/08/18 07:00 Plt Count 176 K/MM3 (134-434) 12/08/18 07:00 MPV 8.6 fl (7.5-11.1) 12/08/18 07:00 Sodium 140 mmol/L (136-145) 12/08/18 07:00 Potassium 4.6 mmol/L (3.5-5.1) 12/08/18 07:00 Chloride 106 mmol/L (98-107) 12/08/18 07:00 Carbon Dioxide 34 mmol/L (21-32) H 12/08/18 07:00 Anion Gap 1 MMOL/L (8-16) L 12/08/18 07:00 BUN 15.2 mg/dL (7-18) 12/08/18 07:00 Creatinine 0.6 mg/dL (0.55-1.3) 12/08/18 07:00 Est GFR (CKD-EPI)AfAm 136.83 12/08/18 07:00 Est GFR (CKD-EPI)NonAf 118.06 12/08/18 07:00 Random Glucose 76 mg/dL (74-106) 12/08/18 07:00 Calcium 8.8 mg/dL (8.5-10.1) 12/08/18 07:00 Total Bilirubin 0.4 mg/dL (0.2-1) 12/08/18 07:00 AST 44 U/L (15-37) H 12/08/18 07:00 ALT 26 U/L (13-61) 12/08/18 07:00 Alkaline Phosphatase 103 U/L (45-117) 12/08/18 07:00 Total Protein 6.6 g/dl (6.4-8.2) 12/08/18 07:00 Albumin 3.3 g/dl (3.4-5.0) L 12/08/18 07:00 RPR Titer Nonreactive (NONREACTIVE) 12/08/18 07:00 LAB NOTED Assessment: 12/09/18 11:45 ALCOHOL WITHDRAWAL SX Plan: CONTINUE ALCOHOL DETOX
[2018-12-09] MEDS: GABAPENTIN 300 MG CAPSULE (FP) PO SCH ×2 (13:13→22:28)
[2018-12-09] MEDS: THIAMINE HCL 100 MG TABLET (FP) PO SCH (22:28)
[2018-12-10] MEDS ORDERED: chlordiazePOXIDE HCL 10 MG CAPSULE PO PRN
[2018-12-10] MEDS: GABAPENTIN 300 MG CAPSULE (FP) PO SCH ×3 (06:12→23:42)
[2018-12-10] MEDS: chlordiazePOXIDE HCL 10 MG CAPSULE PO SCH ×4 (06:12→23:42)
[2018-12-10] MEDS: METHADONE HCL 40 MG DISPERSABLE TABLET PO SCH (06:13)
[2018-12-10] MEDS: PRENATAL VITAMINS W/ FOLIC ACID TABLET (FP) PO SCH (10:21)
[2018-12-10] MEDS: FLUoxetine HCL 20 MG CAPSULE (FP) PO SCH (10:21)
[2018-12-10] MEDS: NICOTINE 21 MG/24 HOURS TOPICAL PATCH TD SCH (10:21)
[2018-12-10] MEDS: PANTOPRAZOLE 40 MG TABLET (FP) PO SCH (10:21)
--- NOTE | 2018-12-10 10:50 | PN ---
[facility] CIWA - CIWA Score Nausea/Vomitin-No Nausea/No Vomiting Muscle Tremors: 1-None Visible, but Horace Anxiety: 3 Agitation: 0-Normal Activity Paroxysmal Sweats: 2 Orientation: 1-Uncertain about Date Tacttile Disturbances: 2-Mild Itch/Numbness/Burn Auditory Disturbances: 0-None Visual Disturbances: 0-None Headache: 1-Very Mild CIWA-Ar Total Score: 10 S Progress Note (SOAP) Subjective: c/o interrupted sleep, chills, sweats, body aches Objective: 12/10/18 10:50 Vital Signs Temperature 98.5 F 12/10/18 09:21 Pulse Rate 76 12/10/18 09:21 Respiratory Rate 16 12/10/18 09:21 Blood Pressure 86/58 L 12/10/18 09:21 O2 Sat by Pulse Oximetry (%) Laboratory Last Values WBC 4.7 K/mm3 (4.0-10.0) 12/08/18 07:00 RBC 3.68 M/mm3 (4.00-5.60) L 12/08/18 07:00 Hgb 13.1 GM/dL (11.7-16.9) 12/08/18 07:00 Hct 37.3 % (35.4-49) 12/08/18 07:00 MCV 101.3 fl (80-96) H 12/08/18 07:00 MCH 35.6 pg (25.7-33.7) H 12/08/18 07:00 MCHC 35.1 g/dl (32.0-35.9) 12/08/18 07:00 RDW 15.4 % (11.9-15.9) 12/08/18 07:00 Plt Count 176 K/MM3 (134-434) 12/08/18 07:00 MPV 8.6 fl (7.5-11.1) 12/08/18 07:00 Sodium 140 mmol/L (136-145) 12/08/18 07:00 Potassium 4.6 mmol/L (3.5-5.1) 12/08/18 07:00 Chloride 106 mmol/L (98-107) 12/08/18 07:00 Carbon Dioxide 34 mmol/L (21-32) H 12/08/18 07:00 Anion Gap 1 MMOL/L (8-16) L 12/08/18 07:00 BUN 15.2 mg/dL (7-18) 12/08/18 07:00 Creatinine 0.6 mg/dL (0.55-1.3) 12/08/18 07:00 Est GFR (CKD-EPI)AfAm 136.83 12/08/18 07:00 Est GFR (CKD-EPI)NonAf 118.06 12/08/18 07:00 Random Glucose 76 mg/dL (74-106) 12/08/18 07:00 Calcium 8.8 mg/dL (8.5-10.1) 12/08/18 07:00 Total Bilirubin 0.4 mg/dL (0.2-1) 12/08/18 07:00 AST 44 U/L (15-37) H 12/08/18 07:00 ALT 26 U/L (13-61) 12/08/18 07:00 Alkaline Phosphatase 103 U/L (45-117) 12/08/18 07:00 Total Protein 6.6 g/dl (6.4-8.2) 12/08/18 07:00 Albumin 3.3 g/dl (3.4-5.0) L 12/08/18 07:00 RPR Titer Nonreactive (NONREACTIVE) 12/08/18 07:00 Assessment: 12/10/18 12:56 withdrawal sx Plan: patient alert, with some periods of drowsiness, hold next librium and gabapentin dose increase PO fluids continue to monitor
--- NOTE | 2018-12-10 10:53 | PN ---
[facility] Progress Note Note: Vital Signs s/p witnessed fall by staff, patient ambulating with walker fell and hit his head. No changes in LOC. Patient was able to off the floor. Temperature 98.5 F 12/10/18 09:21 Pulse Rate 76 12/10/18 09:21 Respiratory Rate 16 12/10/18 09:21 Blood Pressure 86/58 L 12/10/18 09:21 O2 Sat by Pulse Oximetry (%) Patient Aox3 no acute distress No adventitious breath sounds no signs or injury or trauma skin intact, no edema or erythema full ROM b/l lower extremities, + poor grasp on b/l upper hands (chronic) s/p witness fall [facility].
--- NOTE | 2018-12-10 10:57 | PN ---
[facility] Progress Note Note: 48 years old male admitted on 12/07/18 for alcohol withdrawal sx management fell on the floor today occipital landed on the ground no lost of consciousness alert speech clearly not cooperative during the neuro examine information provided to ER Dr. Leonard
--- NOTE | 2018-12-10 20:29 | PN ---
S Progress Note Note: cristy returned from ed for head ct clear no evidence bleed infacrt continue fall protocol fu official read vs recorded in [facility] as wnl
[2018-12-10] MEDS: THIAMINE HCL 100 MG TABLET (FP) PO SCH (23:42)
[2018-12-11] MEDS ORDERED: chlordiazePOXIDE HCL 10 MG CAPSULE PO SCH (05:00)
[2018-12-11] MEDS: METHADONE HCL 40 MG DISPERSABLE TABLET PO SCH (06:08)
[2018-12-11] MEDS: GABAPENTIN 300 MG CAPSULE (FP) PO SCH (07:27)
[2018-12-11 09:42] VITALS: BP 90/50; PULSE 62; TEMP 97.7
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
--- NOTE | 2018-12-11 13:58 | DS ---
[facility] Detox Discharge Summary Admission Date: 12/07/18 Discharge Date: 12/11/18 - History Present History: Alcohol Dependence, Cocaine Dependence, Opioid Dependence, MMTP Additional Comments: PATIENT DENIES CURRENT WITHDRAWAL / DETOX SYMPTOMS AND REPORTS THAT HE FEELS WELL OVERALL AT TIME OF DISCHARGE FROM DETOX UNIT. PATIENT RETURNING TO [facility]PATIENT [facility]GRAMS ([place], [place]), WHERE HE WAS PREVIOUSLY A CLIENT, FOR AFTERCARE. PATIENT ALSO REFERRED TO [facility] ([place], [place]) FOR AFTERCARE. PATIENT ADVISED TO FOLLOW-UP WITH [employer]IC SOON POSSIBLE AFTER DISCHARGE FROM DETOX UNIT FOR GENERAL MEDICAL ASSESSMENT, FOR HISTORY OF SEIZURES, AND FOR FALLS THAT OCCURRED WHILE HE WAS ADMITTED FOR DETOX (SEE PREVIOUS [facility] DETOX NOTES). PATIENT VERBALIZED UNDERSTANDING OF RECOMMENDATION. PATIENT WAS DISCHARGED FROM DETOX UNIT IN STABLE MEDICAL CONDITION. Pertinent Past History: Hep C, History Of Seizures, Bipolar II Disorder, G.E.R.D., Depressive Disorder, Nicotine Dependence, M.M.T.P., Use Of Walker As Ambulatory Aid, Incomplete Quadriplegia at C6 - C6 level. - Physical Exam Results Vital Signs: Vital Signs Temperature 97.7 F 12/11/18 08:40 Pulse Rate 62 12/11/18 08:40 Respiratory Rate 18 12/11/18 08:40 Blood Pressure 90/50 L 12/11/18 08:40 O2 Sat by Pulse Oximetry (%) Pertinent Admission Physical Exam Findings: WITHDRAWAL SYMPTOMS. Laboratory Tests 12/08/18 12/08/18 12/08/18 07:00 07:00 07:00 WBC 4.7 RBC 3.68 L Hgb 13.1 Hct 37.3 MCV 101.3 H MCH 35.6 H MCHC 35.1 RDW 15.4 Plt Count 176 MPV 8.6 Sodium 140 Potassium 4.6 Chloride 106 Carbon Dioxide 34 H Anion Gap 1 L BUN 15.2 Creatinine 0.6 Est GFR (CKD-EPI)AfAm 136.83 Est GFR (CKD-EPI)NonAf 118.06 Random Glucose 76 Calcium 8.8 Total Bilirubin 0.4 AST 44 H ALT 26 Alkaline Phosphatase 103 Total Protein 6.6 Albumin 3.3 L RPR Titer Nonreactive LABS NOTED. - Treatment Hospital Course: Detox Protocol Followed, Detoxed Safely, Responded well, Discharged Condition Good - Medication Discharge Medications: Ambulatory Orders Docusate Sodium [Colace -] 100 mg PO DAILY 12/17/17 Baclofen [Lioresal -] 10 mg PO BID #30 tablet 12/21/17 Docusate Sodium [Colace -] 100 mg PO TID capsule 12/21/17 Fluoxetine HCl [Prozac -] 20 mg PO DAILY #30 capsule 12/21/17 Omeprazole Magnesium [Prilosec Otc] 20 mg PO DAILY 30 Days #30 tablet.dr Gabapentin [Neurontin] 600 mg PO TID 7 Days #21 tablet 12/11/18 - Diagnosis (1) Alcohol dependence with withdrawal Status: Acute Qualifiers: Complication of substance-induced condition: uncomplicated Qualified Code(s ): F10.230 - Alcohol dependence with withdrawal, uncomplicated (2) Cocaine dependence Status: Acute Qualifiers: Substance use status: uncomplicated Qualified Code(s): F14.20 - Cocaine dependence, uncomplicated (3) Depressive disorder Status: Chronic (4) GERD (gastroesophageal reflux disease) Status: Chronic Qualifiers: Esophagitis presence: esophagitis presence not specified Qualified Code(s) : K21.9 - Gastro-esophageal reflux disease without esophagitis (5) 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 Status: Chronic (6) Methadone maintenance therapy patient Status: Chronic (7) Nicotine dependence Status: Chronic Qualifiers: Nicotine product type: cigarettes Substance use status: in withdrawal Qualified Code(s): F17.213 - Nicotine dependence, cigarettes, with withdrawal (8) Seizure disorder Status: Chronic (9) Walker as ambulation aid Status: Chronic (10) Bipolar II disorder Status: Suspected (11) Fall Status: Acute Qualifiers: Encounter type: initial encounter Qualified Code(s): W19.XXXA - Unspecified fall, initial encounter - AMA Did Patient Leave Against Medical Advice: No
[2018-12-12] MEDS ORDERED: chlordiazePOXIDE HCL 10 MG CAPSULE PO ONE (05:00)
== END 2018-12-11 10:07 | disposition home or self-care (01) | DRG 773 ==
LOC: YASAS 14:37 → Y3N 22:08
PROVIDERS: ADMIT Surgery; ATTEND Surgery
PROC: HZ2ZZZZ Detoxification Services for Substance Abuse Treatment (ICD-10-PCS; principal; 2018-12-07)
DX: F10.230 Alcohol dependence with withdrawal, uncomplicated (principal); F14.23 Cocaine dependence with withdrawal; F11.20 Opioid dependence, uncomplicated; F17.210 Nicotine dependence, cigarettes, uncomplicated; F31.81 Bipolar II disorder; G40.909 Epilepsy, unspecified, not intractable, without status epilepticus; K21.9 Gastro-esophageal reflux disease without esophagitis; B18.2 Chronic viral hepatitis C; G82.54 Quadriplegia, C5-C7 incomplete; R32 Unspecified urinary incontinence; Z99.89 Dependence on other enabling machines and devices; Z87.19 Personal history of other diseases of the digestive system; S09.8XXA Other specified injuries of head, initial encounter; W19.XXXA Unspecified fall, initial encounter; Y93.89 Activity, other specified; Y92.239 Unspecified place in hospital as the place of occurrence of the external cause; Y99.8 Other external cause status
CPT/HCPCS: 36415; 80053; 85027; 86593; 93005; 93010

== ENCOUNTER 2018-12-10 12:50 | Emergency (ER) | payer OTHER ==
[2018-12-10 13:07] VITALS: BP 95/59; PULSE 61; TEMP 98.2; BMI 26.6
--- NOTE | 2018-12-10 13:12 | PDOC ---
History of Present Illness - General Chief Complaint: Injury Stated Complaint: FALL Time Seen by Provider: 12/10/18 13:11 - History of Present Illness Initial Comments: Mr. Frances is a 48 y/o man with hx alcohol use disorder presenting from [facility] inpatient detox. Phone call received prior to his arrival. [facility] reports that he sustained a fall with injury to occiput. They noted no LOC, and he was not endorsing any ongoing pain. They reported that he was alert, and inpatient for alcohol use detox. Per protocol after a fall, he was transferred for evaluation and imaging. 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 He was somnolent throughout the interview, which he attributed to methadone administration earlier today. Past History - Past Medical History Allergies/Adverse Reactions: Allergies Allergy/AdvReac Type Severity Reaction Status Date / Time phenytoin Allergy Severe Rash Verified 12/07/18 19:17 Home Medications: Ambulatory Orders Docusate Sodium [Colace -] 100 mg PO DAILY 12/17/17 Methadone [Dolophine -] 80 mg PO DAILY 12/17/17 Baclofen [Lioresal -] 10 mg PO BID #30 tablet 12/21/17 Docusate Sodium [Colace -] 100 mg PO TID capsule 12/21/17 Fluoxetine HCl [Prozac -] 20 mg PO DAILY #30 capsule 12/21/17 Gabapentin [Neurontin -] 600 mg PO TID #90 capsule 12/21/17 Omeprazole Magnesium [Prilosec Otc] 20 mg PO DAILY 30 Days #30 tablet. Anemia: No Asthma: No Cancer: No Cardiac Disorders: No CVA: No COPD: No CHF: No Dementia: No Diabetes: No GI Disorders: Yes (GERD - Omeprazole) Disorders: No HTN: No Hypercholesterolemia: No Kidney Stones: No Liver Disease: No Seizures: Yes (LAST 2007) Thyroid Disease: No - Surgical History Abdominal Surgery: Yes ([place]PTIC ULCER [place] [address] [place] perforated) Appendectomy: No Cardiac Surgery: No Cholecystectomy: No Lung Surgery: No Neurologic Surgery: Yes (neck in 2013) Orthopedic Surgery: Yes (RIGHT KNEE DUE TO TORN MENISCUS IN 2011) - Reproductive History Testicular Surgery: No - Suicide/Smoking/Psychosocial Hx Smoking History: Unknown if ever smoked Have you smoked in the past 12 months: Yes Number of Cigarettes Smoked Daily: 20 Cigars Per Day: 0 'Breaking Loose' booklet given: 12/07/18 Hx Alcohol Use: Yes Drug/Substance Use Hx: Yes Substance Use Type: Alcohol, Cocaine Hx Substance Use Treatment: Yes ([facility]) Review of Systems - Review of Systems Comments:: 12/10/18 17:15 GENERAL/CONSTITUTIONAL: No fever or chills. No weakness. HEAD, EYES, EARS, NOSE AND THROAT: No change in vision. No ear pain or discharge. No sore throat. CARDIOVASCULAR: No chest pain or shortness of breath RESPIRATORY: No cough, wheezing, or hemoptysis. GASTROINTESTINAL: No nausea, vomiting, diarrhea or constipation. GENITOURINARY: No dysuria, frequency, or change in urination. MUSCULOSKELETAL: No joint or muscle swelling or pain. No neck or back pain. SKIN: No rash NEUROLOGIC: No headache, vertigo, loss of consciousness, or change in strength/ sensation. ENDOCRINE: No increased thirst. No abnormal weight change HEMATOLOGIC/LYMPHATIC: No anemia, easy bleeding, or history of blood clots. ALLERGIC/IMMUNOLOGIC: No hives or skin allergy. *Physical Exam - Vital Signs Last Vital Signs Temp Pulse Resp BP Pulse Ox 98.2 F 61 19 95/59 L 97 12/10/18 13:05 12/10/18 13:05 12/10/18 13:05 12/10/18 13:05 12/10/18 13:05 - Physical Exam Comments: 12/10/18 17:16 GENERAL: Somnolent - drifting in and out of sleep. While awake - alert, fully oriented, in no acute distress HEAD: No signs of trauma, normocephalic, atraumatic EYES: PERRLA, EOMI, sclera anicteric, conjunctiva clear ENT: Auricles normal inspection, hearing grossly normal, nares patent, oropharynx clear without exudates. Moist mucosa NECK: Mild tenderness to palpation of posterior cervical spine region. Normal ROM, supple, no lymphadenopathy, JVD, or masses LUNGS: No distress, speaks full sentences, clear to auscultation bilaterally HEART: Regular rate and rhythm, normal S1 and S2, no murmurs, rubs or gallops, peripheral pulses normal and equal bilaterally. ABDOMEN: Soft, nontender, normoactive bowel sounds. No guarding, no rebound. No masses EXTREMITIES : Normal inspection, Normal range of motion, no edema. No clubbing or cyanosis. NEUROLOGICAL: Cranial nerves II through XII grossly intact. Normal speech, normal gait, no focal sensorimotor deficits SKIN: Warm, Dry, normal turgor, no rashes or lesions noted Medical Decision Making - Medical Decision Making 48 y/o M with hx alcohol use disorder presenting from [facility] detox per protocol after a fall, no LOC, dizziness, confusion. Somnolence attributed to methadone administration earlier today. Plan for head and neck CT without contrast to evaluate for acute fracture or bleed, if normal plan for discharge back to [facility]. 12/10/18 15:[address] both negative for acute process, plan for discharge back to [facility]. *DC/Admit/Observation/Transfer Diagnosis at time of Disposition: Fall Qualifiers: Encounter type: initial encounter Qualified Code(s): W19.XXXA - Unspecified fall, initial encounter - Discharge Dispostion Disposition: HOME Condition at time of disposition: Good Decision to Admit order: No - Referrals - Patient Instructions Printed Discharge Instructions: How to Prevent Falls Additional Instructions: You were evaluated in the Emergency Department after a fall at [facility]. We evaluated your symptoms, conducted a physical exam, and ordered a CT scan of your head and neck. Both returned normal, and we believe that you are safe to discharge from the Emergency Department. Please return if you develop any confusion, trouble walking, vertigo, or nausea. - Post Discharge Activity
--- NOTE | 2018-12-10 16:15 | PDOC ---
Documentation entered by Kyler Whitney SCRIBE, acting as scribe for Edison Pate MD. Edison Pate MD: This documentation has been prepared by the wesleye, Kyler Whitney SCRIBE, under my direction and personally reviewed by me in its entirety. I confirm that the documentation accurately reflects all work, treatment, procedures, and medical decision making performed by me. Attending Attestation - Resident Resident Name: Javan Houston - ED Attending Attestation I have performed the following: I have examined & evaluated the patient, The case was reviewed & discussed with the resident, I agree w/resident's findings & plan, Exceptions are as noted - HPI HPI: 12/10/18 16:07 The patient is a 48 year old male with a significant past medical history of etoh, heroin abuse and GERD who presents to the emergency department with an injury s/p a fall earlier today. The patient states that he was ambulating while using his walker when he fell backwards on his behind and struck his head on the wall. The patient denies any loc, headache, nausea, vomiting, vision changes, back pain, numbness, tingling or weakness. The patient denies any other symptoms or complaints. - Physicial Exam PE: 12/10/18 16:14 General: no acute distress HEENT: Araumatic, no tenderness, no erythema/crepitus/stepoff BackL no focal ttp to cervical/thoracic/lumbar spine Ext: moving all 4 exremities spontaneously and symmetrically - Medical Decision Making 12/10/18 16:14 ct head and cspine neg will dc back to [facility]
[2018-12-10] MEDS ORDERED: PT OWN MED DRAWER 7, Y5N ONE (16:29)
== END 2018-12-10 21:26 | disposition home or self-care (01) ==
LOC: JER 12:50
DX: S09.8XXA Other specified injuries of head, initial encounter (principal); W01.0XXA Fall on same level from slipping, tripping and stumbling without subsequent striking against object, initial encounter; Y93.89 Activity, other specified; Y92.238 Other place in hospital as the place of occurrence of the external cause; Y99.8 Other external cause status; F10.10 Alcohol abuse, uncomplicated; Z99.89 Dependence on other enabling machines and devices
CPT/HCPCS: 70450-TC; 72125-TC; 99281-25

== ENCOUNTER 2019-06-15 13:17 | Inpatient (IN) | payer OTHER ==
[2019-06-15 13:55] VITALS: BMI 21.4
--- NOTE | 2019-06-15 18:23 | HP ---
CIWA Score Nausea/Vomitin Muscle Tremors: 2 Anxiety: 3 Agitation: 2 Paroxysmal Sweats: 3 Orientation: 0-Oriented Tacttile Disturbances: 2-Mild Itch/Numbness/Burn Auditory Disturbances: 0-None Visual Disturbances: 0-None Headache: 2-Mild CIWA-Ar Total Score: 16 - Admission Criteria OASAS Guidelines: Admission for Medically Managed Detox: Requires at least one of the followin. CIWA greater than 12 2. Seizures within the past 24 hours 3. Delirium tremens within the past 24 hours 4. Hallucinations within the past 24 hours 5. Acute intervention needed for co occurring medical disorder 6. Acute intervention needed for co occurring psychiatric disorder 7. Severe withdrawal that cannot be handled at a lower level of care (continued vomiting, continued diarrhea, abnormal vital signs) requiring intravenous medication and/or fluids 8. Admitting History and Physical - Admission Chief Complaint: "I'm here for alcohol detox". History of Present Illness: A 48year old male with history of GERD, Hep. C, seizures,and alcohol use disorder who presents here today requesting for alcohol detox. Pt states several attempts to remain sober has failed. He reports that he had a fall in 2013 and sustained a spinal cord injury which rendered him an incomplete quadriplegic. He denies suicide attempt and suicidal ideation at the moment. Pt states he fell at home 2weeks ago and went to [facility] ED for evaluation. Noted old bruises to b/l elbow/knees. Pt is on Methadone 80mg po daily at [facility] in [place]. Dose to be verified in AM. Pt's EKG shows sinus bradycardia with premature supraventricular complexes, Incomplete right bundle branch block, and lateral infarct age undetermined. Denies any palpitations, chest tightness, chest pain, syncope, or dizziness at this time. Will repeat EKG in AM. History Source: Patient Limitations to Obtaining History: No Limitations - Smoking History Smoking history: Current every day smoker Have you smoked in the past 12 months: Yes Aproximately how many cigarettes per day: 20 - Alcohol/Substance Use Hx Alcohol Use: Yes History of Substance Use: reports: None - Social History Usual Living Arrangement: Yes: Alone Do you think of yourself as: Straight/Heterosexual ADL: Family Assistance History of Recent Travel: No Admission ROS S - HPI Allergies/Adverse Reactions: Allergies Allergy/AdvReac Type Severity Reaction Status Date / Time phenytoin Allergy Severe Rash Verified 12/07/18 19:17 Exam Limitations: No Limitations - Ebola screening Have you traveled outside of the country in the last 21 days: No Have you had contact with anyone from an Ebola affected area: No Have you been sick,other than usual withdrawal symptoms: No Do you have a fever: No - Review of Systems Constitutional: Chills, Diaphoresis, Loss of Appetite, Night Sweats EENT: reports: No Symptoms Reported Respiratory: reports: No Symptoms reported Cardiac: reports: No Symptoms Reported GI: reports: Nausea, Poor Appetite, Abdominal cramping : reports: No Symptoms Reported Musculoskeletal: reports: Back Pain, Neck Pain Integumentary: reports: No Symptoms Reported Neuro: reports: Headache, Numbness, Tremors Endocrine: reports: No Symptoms Reported Hematology: reports: No Symptoms Reported Psychiatric: reports: Mood/Affect Appropiate, Anxious, other (H/o depression.) Other Systems: Reviewed and Negative Patient History - Patient Medical History Hx Anemia: No Hx Asthma: No Hx Chronic Obstructive Pulmonary Disease (COPD): No Hx Cancer: No Hx Cardiac Disorders: No Hx Congestive Heart Failure: No Hx Hypertension: No Hx Hypercholesterolemia: No Hx Pacemaker: No HX Cerebrovascular Accident: No Hx Seizures: Yes (LAST 2007) Hx Dementia: No Hx Diabetes: No Hx Gastrointestinal Disorders: Yes (GERD - Omeprazole) Hx Liver Disease: No Hx Genitourinary Disorders: No Hx Sexually Transmitted Disorders: No Hx Renal Disease (ESRD): No Hx Thyroid Disease: No Hx Human Immunodeficiency Virus (HIV): No Hx Hepatitis C: Yes (Not treated) Hx Depression: No Hx Suicide Attempt: No Hx Bipolar Disorder: No Hx Schizophrenia: No - Patient Surgical History Past Surgical History: Yes Hx Neurologic Surgery: Yes (neck in 2013) Hx Cataract Extraction: No Hx Cardiac Surgery: No Hx Lung Surgery: No Hx Breast Surgery: No Hx Breast Biopsy: No Hx Abdominal Surgery: Yes (PEPTIC ULCER IN 2006 ) Hx Appendectomy: No Hx Cholecystectomy: No Hx Genitourinary Surgery: No Hx Section: No Hx Orthopedic Surgery: Yes (RIGHT KNEE DUE TO TORN MENISCUS IN 2011) Other Surgical History: Sx R knee meniscus repair Anesthesia Reaction: No - PPD History Previous Implant?: Yes Documented Results: Negative w/proof Implanted On Prior [facility] Admission?: Yes Date: 12/09/18 Results: 0 mm PPD to be Administered?: No - Smoking Cessation Smoking history: Unknown if ever smoked Have you smoked in the past 12 months: Yes Aproximately how many cigarettes per day: 20 Cigars Per Day: 0 Hx Chewing Tobacco Use: No Initiated information on smoking cessation: Yes 'Breaking Loose' booklet given: 06/15/19 - Substances abused Alcohol Substance route: Oral Frequency: Daily Amount used: vodka- 1 pt daily Age of first use: 9 Date of last use: 06/15/19 Admission Physical Exam S - Vital Signs Vital Signs: Vital Signs - 24 hr 06/15/19 06/15/19 13:49 17:11 Temperature 96.8 F L 96.8 F L Pulse Rate 59 L 59 L Respiratory 18 18 Rate Blood Pressure 143/81 143/81 - Physical General Appearance: Yes: No Apparent Distress, Tremorous, Irritable, Sweating, Anxious HEENTM: Yes: EOMI, Hearing grossly Normal, Normocephalic, Normal Voice, JENNIFER Respiratory: Yes: Chest Non-Tender, Lungs Clear, Normal Breath Sounds, No Respiratory Distress Neck: Yes: No masses,lesions,Nodules, Trachea in good position Breast: Yes: Within Normal Limits Cardiology: Yes: Regular Rhythm, Regular Rate, S1, S2 Abdominal: Yes: Non Tender, Flat, Soft Genitourinary: Yes: Within Normal Limits Back: Yes: Decreased Range of Motion Musculoskeletal: Yes: Other (Unsteady gait, ambulates with a walker.) Extremities: Yes: Normal Capillary Refill, Tremors Neurological: Yes: Alert, Normal Mood/Affect, Normal Response Integumentary: Yes: Dry, Warm Lymphatic: Yes: Other (b/l knee and b/l elbow with old bruises, s/p fall 2weeks ago.) - Diagnostic (1) Alcohol dependence Current Visit: No Status: Acute (2) Alcohol dependence with withdrawal Current Visit: No Status: Acute Qualifiers: Complication of substance-induced condition: uncomplicated Qualified Code(s ): F10.230 - Alcohol dependence with withdrawal, uncomplicated (3) Depressive disorder Current Visit: No Status: Chronic (4) GERD (gastroesophageal reflux disease) Current Visit: No Status: Chronic Qualifiers: Esophagitis presence: esophagitis presence not specified Qualified Code(s) : K21.9 - Gastro-esophageal reflux disease without esophagitis (5) Hepatitis C carrier Current Visit: No Status: Chronic (6) 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 Current Visit: No Status: Chronic (7) Incontinence Current Visit: No Status: Chronic Qualifiers: Incontinence type: urinary Urinary Incontinence type: unspecified incontinence Qualified Code(s): R32 - Unspecified urinary incontinence (8) Methadone maintenance therapy patient Current Visit: No Status: Chronic (9) Nicotine dependence Current Visit: No Status: Chronic Qualifiers: Nicotine product type: cigarettes Substance use status: in withdrawal Qualified Code(s): F17.213 - Nicotine dependence, cigarettes, with withdrawal (10) Opioid dependence on agonist therapy Current Visit: No Status: Chronic (11) Walker as ambulation aid Current Visit: No Status: Chronic (12) Cocaine dependence Current Visit: No Status: Chronic Qualifiers: Substance use status: uncomplicated Qualified Code(s): F14.20 - Cocaine dependence, uncomplicated Cleared for Admission S - Detox or Rehab [facility] Level of Care: Medically Managed Detox Regimen/Protocol: Librium Claeared for Rehab Admission: No Breathalyzer - Breathalyzer Breathalyzer: 0.041 Urine Drug Screen - Test Device Lot number: [id number] Expiration date: 12/23/20 - Control Is test valid?: Yes - Results Drug screen NEGATIVE: No Urine drug screen results: EMELINA-Cocaine, MTD-Methadone Inpatient Rehab Admission - Rehab Decision to Admit Inpatient rehab admission?: No
[2019-06-15] MEDS ORDERED: BISMUTH SUBSALICYLATE 524 MG/30 ML UD PO PRN (18:35)
[2019-06-15] MEDS ORDERED: MELATONIN 5 MG TABLETS PO PRN (18:35)
[2019-06-15] MEDS ORDERED: MAG HYDROX/AL HYDROX/SIMETH 30 ML UNIT-DOSE CUP PO PRN (18:35)
[2019-06-15] MEDS ORDERED: MAGNESIUM HYDROX 2400MG/30ML ORAL SUSPENSION 30 ML CUP PO PRN (18:35)
[2019-06-15] MEDS ORDERED: P-EPHED 60MG/TRIPROLIDI 2.5MG TABLET PO PRN (18:35)
[2019-06-15] MEDS ORDERED: hydrOXYzine PAMOATE 25 MG CAPSULE (FP) PO PRN (18:35)
[2019-06-15] MEDS ORDERED: ACETAMINOPHEN 325 MG TABLET (FP) PO PRN ×2 (18:35)
[2019-06-15] MEDS ORDERED: MENTHOL/PHENOL 1 EACH UD MM PRN (18:35)
[2019-06-15] MEDS ORDERED: IBUPROFEN 400 MG TABLET (FP) PO PRN (18:35)
[2019-06-15] MEDS ORDERED: MAGNESIUM CITRATE 300 ML BOTTLE PO PRN (18:35)
[2019-06-15] MEDS ORDERED: guaiFENesin 200 MG/10 ML 10 ML UNIT-DOSE CUPS PO PRN (18:35)
[2019-06-15] MEDS ORDERED: METHOCARBAMOL 500 MG TABLET PO PRN (18:35)
[2019-06-15] MEDS ORDERED: ONDANSETRON *ODT* 4 MG TABLET SL PRN (18:35)
[2019-06-15] MEDS ORDERED: chlordiazePOXIDE HCL 25 MG CAPSULE PO ONE (18:38)
[2019-06-15] MEDS: THIAMINE HCL 100 MG TABLET (FP) PO SCH (21:28)
[2019-06-15] MEDS: chlordiazePOXIDE HCL 25 MG CAPSULE PO SCH (21:28)
[2019-06-16] MEDS: chlordiazePOXIDE HCL 25 MG CAPSULE PO SCH ×3 (05:35→21:06)
[2019-06-16] MEDS ORDERED: METHADONE HCL 40 MG DISPERSABLE TABLET PO ONE (08:43)
--- NOTE | 2019-06-16 08:55 | CONSULT ---
[facility] Psychiatric Consult - Data Date of interview: 06/16/19 Admission source: Self-referred Identifying data: Mr Frances is a 48 years old single male, unemployed receivng [facility], domiciled seeking detox treatment for alcohol Substance Abuse History: Reports history of alcohol use. Refer to addiction counselor's summary for further information Medical History: Significant for GERD, incontinence, hepatitis C, seizure disorder, history of surgery for spinal cord injury and orthosurgery for repair meniscur right knee in 2001. Patient is on methadone 80 mg/day from [facility]. Smokes cigarettes1 ppd Psychiatric History: Patient is known for multiple admissions to this facility. Historical narrative remains consistent. Reports that his first psychiatric contact was age 11 at [facility] due to mood dysregulation and hyperactivity. He said that he was diagnosed with ADHD and prescribed Ritalin which he took for a while. As an adult he reports that his diagnosis was revised to Bipolar Disorder and he has had multiple previous psychiatric hospitalizations at various facilities including [facility], [facility] and most recently at [facility] April 2018 for depressionmost recently at [facility] in April of 2018 for depression. Patient reports a history of noncompliance to outpatient psychiatric treatment. Patient has been prescribed Prozac, Ativan, Lithum, Seroquel, and Mirtazapine in the past. During his most recent admission to this facility, he was seen by NIKKI Chowdhury and he was prescribed Prozac 20 mg/ day. Reports since discharge from this facility in November 2018, he has been going to [facility] emergency room for refills of Prozac and he took it last 2 months ago. Reportedly he has experienced priapism from Trazodone and and oversedation from Mirtzapine. Denies previous suicide attempt. At present, denies experiencing psychotic, manic symptoms, S/H ideations. However, reports feeling depressed and sleeping poorly. He requests to resume Prozac. Physical/Sexual Abuse/Trauma History: Denies history of abuse as a child or DV relationship as an adult Mental Status Exam - Mental Status Exam Alert and Oriented to: Time, Place, Person Cognitive Function: Fair Patient Appearance: Disheveled Mood: Depressed (mildly) Affect: Appropriate Patient Behavior: Cooperative Speech Pattern: Clear Voice Loudness: Normal Thought Process: Intact, Goal Oriented Thought Disorder: Not Present Hallucinations: Denies Suicidal Ideation: Denies Homicidal Ideation: Denies Insight/Judgement: Poor Sleep: Poorly Appetite: Fair Muscle strength/Tone: Normal Gait/Station: Other (Uses a walker as ambulatory aid) Psychiatric Findings - Problem List ([place] 1, 2,3) (1) Bipolar disorder Current Visit: Yes Status: Chronic (2) Alcohol-induced mood disorder Current Visit: Yes Status: Acute (3) Alcohol-induced sleep disorder Current Visit: Yes Status: Acute (4) Alcohol dependence with withdrawal Current Visit: No Status: Acute Qualifiers: Complication of substance-induced condition: uncomplicated Qualified Code(s ): F10.230 - Alcohol dependence with withdrawal, uncomplicated (5) Opioid dependence on agonist therapy Current Visit: No Status: Chronic (6) Nicotine dependence Current Visit: No Status: Chronic Qualifiers: Nicotine product type: cigarettes Substance use status: in withdrawal Qualified Code(s): F17.213 - Nicotine dependence, cigarettes, with withdrawal (7) GERD (gastroesophageal reflux disease) Current Visit: No Status: Chronic Qualifiers: Esophagitis presence: esophagitis presence not specified Qualified Code(s) : K21.9 - Gastro-esophageal reflux disease without esophagitis (8) Hepatitis C carrier Current Visit: No Status: Chronic (9) 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 Current Visit: No Status: Chronic (10) Seizure disorder Current Visit: No Status: Chronic Comment: on gabapentin - Initial Treatment Plan Initial Treatment Plan: 1) Resume Prozac 20 mg po daily. 2) Start Belsomra 10 mg po HS prn for insomnia. 3) Continue inpatient detoxification
[2019-06-16] MEDS: PRENATAL VITAMINS W/ FOLIC ACID TABLET (FP) PO SCH (10:22)
[2019-06-16] MEDS: NICOTINE 21 MG/24 HOURS TOPICAL PATCH TD SCH (10:22)
[2019-06-16] MEDS: FLUoxetine HCL 20 MG CAPSULE PO SCH (10:23)
--- NOTE | 2019-06-16 10:31 | EKG ---
Test Reason : Blood Pressure : / mmHG Vent. Rate : 056 BPM Atrial Rate : 056 BPM P-R Int : 168 ms QRS Dur : 116 ms QT Int : 452 ms P-R-T Axes : 000 113 135 degrees QTc Int : 436 ms SINUS BRADYCARDIA WITH PREMATURE SUPRAVENTRICULAR COMPLEXES INCOMPLETE RIGHT BUNDLE BRANCH BLOCK LATERAL INFARCT , AGE UNDETERMINED ABNORMAL ECG WHEN COMPARED WITH ECG OF 07-DEC-2018 22:42, PREMATURE SUPRAVENTRICULAR COMPLEXES ARE NOW PRESENT QRS AXIS SHIFTED RIGHT LATERAL INFARCT IS NOW PRESENT T WAVE INVERSION NOW EVIDENT IN LATERAL LEADS Confirmed by JUAN NEIL, CHUCKY ([id number]) on 06/16/2019 10:31:23 AM Referred By: VAL Confirmed By:CHUCKY MARTINEZ MD
[2019-06-16 12:21] LABS: HEMATOCRIT 38.8 % (35.4-49); HEMOGLOBIN 13.6 GM/dL (11.7-16.9); MCH 34.7 pg (25.7-33.7); MEAN CELL VOLUME 99.3 fl (80-96); MEAN PLT VOLUME 8.5 fl (7.5-11.1); PLATELET COUNT 182 K/MM3 (134-434); RBC 3.91 M/mm3 (4.00-5.60); RDW 14.5 % (11.9-15.9); WHITE BLOOD COUNT 3.3 K/mm3 (4.0-10.0)
--- NOTE | 2019-06-16 12:29 | PN ---
S CIWA - CIWA Score Nausea/Vomitin-No Nausea/No Vomiting Muscle Tremors: 3 Anxiety: 3 Agitation: 3 Paroxysmal Sweats: 2 Orientation: 0-Oriented Tacttile Disturbances: 0-None Auditory Disturbances: 0-None Visual Disturbances: 0-None Headache: 0-None Present CIWA-Ar Total Score: 11 S Progress Note (SOAP) Subjective: sweats shakes body aches Objective: 06/16/19 12:31 Vital Signs Temperature 96.0 F L 06/16/19 09:24 Pulse Rate 73 06/16/19 09:24 Respiratory Rate 18 06/16/19 09:24 Blood Pressure 116/73 06/16/19 09:24 O2 Sat by Pulse Oximetry (%) Laboratory Tests 06/16/19 08:00 WBC 3.3 L RBC 3.91 L Hgb 13.6 Hct 38.8 MCV 99.3 H MCH 34.7 H MCHC 35.0 RDW 14.5 Plt Count 182 MPV 8.5 rest of labs pending aaox3 ambulating no acute distress Assessment: 06/16/19 12:32 withdrawals Plan: continue detox increase fluids
[2019-06-16 12:48] LABS: ALBUMIN 3.3 g/dl (3.4-5.0); BILIRUBIN,TOTAL 0.5 mg/dL (0.2-1); BLOOD UREA NITROGEN 5.9 mg/dL (7-18); CALCIUM 9.1 mg/dL (8.5-10.1); CREATININE 0.6 mg/dL (0.55-1.3); POTASSIUM 3.9 mmol/L (3.5-5.1); TOT PROT 6.8 g/dl (6.4-8.2)
[2019-06-16] MEDS: chlordiazePOXIDE HCL 10 MG CAPSULE PO PRN (16:52)
[2019-06-16] MEDS: SUVOREXANT 10 MG TABLET PO PRN (21:06)
[2019-06-16] MEDS: THIAMINE HCL 100 MG TABLET (FP) PO SCH (21:06)
[2019-06-17] MEDS: chlordiazePOXIDE HCL 10 MG CAPSULE PO PRN ×2 (01:55→18:10)
[2019-06-17] MEDS: chlordiazePOXIDE 5 MG CAPSULE PO SCH ×3 (05:47→22:31)
[2019-06-17] MEDS: METHADONE HCL 40 MG DISPERSABLE TABLET PO SCH (05:47)
[2019-06-17] MEDS: NICOTINE 21 MG/24 HOURS TOPICAL PATCH TD SCH (10:26)
[2019-06-17] MEDS: PRENATAL VITAMINS W/ FOLIC ACID TABLET (FP) PO SCH (10:26)
[2019-06-17] MEDS: FLUoxetine HCL 20 MG CAPSULE PO SCH (10:26)
--- NOTE | 2019-06-17 11:35 | PN ---
[facility] CIWA - CIWA Score Nausea/Vomitin-No Nausea/No Vomiting Muscle Tremors: None Anxiety: 1-Mildly Anxious Agitation: 0-Normal Activity Paroxysmal Sweats: No Perspiration Orientation: 0-Oriented Tacttile Disturbances: 0-None Auditory Disturbances: 0-None Visual Disturbances: 0-None Headache: 0-None Present (Complains of not sleeping well, rash/itchy) CIWA-Ar Total Score: 1 S Progress Note (SOAP) Subjective: Rash right side of neck Sleep: up and down last night Objective: 06/17/19 11:30 Vital Signs Temperature 98.8 F 06/17/19 11:03 Pulse Rate 69 06/17/19 11:03 Respiratory Rate 18 06/17/19 11:03 Blood Pressure 123/78 06/17/19 11:03 O2 Sat by Pulse Oximetry (%) Laboratory Last Values WBC 3.3 K/mm3 (4.0-10.0) L 06/16/19 08:00 RBC 3.91 M/mm3 (4.00-5.60) L 06/16/19 08:00 Hgb 13.6 GM/dL (11.7-16.9) 06/16/19 08:00 Hct 38.8 % (35.4-49) 06/16/19 08:00 MCV 99.3 fl (80-96) H 06/16/19 08:00 MCH 34.7 pg (25.7-33.7) H 06/16/19 08:00 MCHC 35.0 g/dl (32.0-35.9) 06/16/19 08:00 RDW 14.5 % (11.9-15.9) 06/16/19 08:00 Plt Count 182 K/MM3 (134-434) 06/16/19 08:00 MPV 8.5 fl (7.5-11.1) 06/16/19 08:00 Sodium 140 mmol/L (136-145) 06/16/19 08:00 Potassium 3.9 mmol/L (3.5-5.1) 06/16/19 08:00 Chloride 103 mmol/L (98-107) 06/16/19 08:00 Carbon Dioxide 31 mmol/L (21-32) 06/16/19 08:00 Anion Gap 6 MMOL/L (8-16) L 06/16/19 08:00 BUN 5.9 mg/dL (7-18) L 06/16/19 08:00 Creatinine 0.6 mg/dL (0.55-1.3) 06/16/19 08:00 Est GFR (CKD-EPI)AfAm 136.83 06/16/19 08:00 Est GFR (CKD-EPI)NonAf 118.06 06/16/19 08:00 Random Glucose 77 mg/dL (74-106) 06/16/19 08:00 Calcium 9.1 mg/dL (8.5-10.1) 06/16/19 08:00 Total Bilirubin 0.5 mg/dL (0.2-1) 06/16/19 08:00 AST 28 U/L (15-37) 06/16/19 08:00 ALT 22 U/L (13-61) 06/16/19 08:00 Alkaline Phosphatase 86 U/L (45-117) 06/16/19 08:00 Total Protein 6.8 g/dl (6.4-8.2) 06/16/19 08:00 Albumin 3.3 g/dl (3.4-5.0) L 06/16/19 08:00 RPR Titer Nonreactive (NONREACTIVE) 06/16/19 08:00 06/17/19 11:33 Awake, alert, in no apparent distress Rash, 3 small red macules right trapezius region with scratch inman Ambulates with walker Independent in ADLs Urinary incontinence at bedtime wears diaper Assessment: 06/17/19 11:34 1. Alcohol detox 2. Rash Plan: 1. Continue alcohol detox protocol 2. For rash: Aveeno soap, topical hydrocortisone 3. Robitussin for nonproductive cough
[2019-06-17] MEDS ORDERED: HYDROCORTISONE 1% TOPICAL CREAM 30 GM TUBE TP PRN (12:56)
[2019-06-17] MEDS ORDERED: COLLOIDAL OATMEAL 1 BAR EACH TP ONE (12:56)
--- NOTE | 2019-06-17 15:15 | EKG ---
Test Reason : Blood Pressure : / mmHG Vent. Rate : 056 BPM Atrial Rate : 056 BPM P-R Int : 168 ms QRS Dur : 116 ms QT Int : 444 ms P-R-T Axes : 074 057 064 degrees QTc Int : 428 ms POOR DATA QUALITY, INTERPRETATION MAY BE ADVERSELY AFFECTED SINUS BRADYCARDIA WITH SINUS ARRHYTHMIA POSSIBLE LEFT ATRIAL ENLARGEMENT INCOMPLETE RIGHT BUNDLE BRANCH BLOCK BORDERLINE ECG WHEN COMPARED WITH ECG OF 15-JUN-2019 18:59, PREMATURE SUPRAVENTRICULAR COMPLEXES ARE NO LONGER PRESENT QRS AXIS SHIFTED LEFT CRITERIA FOR LATERAL INFARCT ARE NO LONGER PRESENT Confirmed by MIGNON SINGH MD ([id number]) on 06/17/2019 3:15:22 PM Referred By: Confirmed By:MIGNON SINGH MD
[2019-06-17] MEDS: THIAMINE HCL 100 MG TABLET (FP) PO SCH (22:31)
[2019-06-17] MEDS: SUVOREXANT 10 MG TABLET PO PRN (22:35)
[2019-06-18] MEDS ORDERED: chlordiazePOXIDE HCL 10 MG CAPSULE PO PRN
[2019-06-18] MEDS: chlordiazePOXIDE HCL 10 MG CAPSULE PO SCH ×3 (06:29→22:21)
[2019-06-18] MEDS: METHADONE HCL 40 MG DISPERSABLE TABLET PO SCH (06:30)
[2019-06-18] MEDS: BACITRACIN 15 GM TUBE TOPICAL OINTMENT TP SCH ×2 (10:52→22:23)
[2019-06-18] MEDS: NICOTINE 21 MG/24 HOURS TOPICAL PATCH TD SCH (10:52)
[2019-06-18] MEDS: PRENATAL VITAMINS W/ FOLIC ACID TABLET (FP) PO SCH (10:52)
[2019-06-18] MEDS: FLUoxetine HCL 20 MG CAPSULE PO SCH (10:52)
[2019-06-18] MEDS: NICOTINE POLACRILEX 2 MG GUM BUC PRN ×2 (12:56→22:19)
--- NOTE | 2019-06-18 13:47 | PN ---
S CIWA - CIWA Score Nausea/Vomitin-No Nausea/No Vomiting Muscle Tremors: 1-None Visible, but [place] Anxiety: 1-Mildly Anxious Agitation: 0-Normal Activity Paroxysmal Sweats: 1-Minimal Palms Moist Orientation: 0-Oriented Tacttile Disturbances: 0-None Auditory Disturbances: 0-None Visual Disturbances: 0-None Headache: 0-None Present CIWA-Ar Total Score: 3 B[facility] Progress Note (SOAP) Subjective: sweats anxiety Objective: 06/18/19 13:46 Vital Signs Temperature 97.7 F 06/18/19 09:50 Pulse Rate 86 06/18/19 09:50 Respiratory Rate 18 06/18/19 09:50 Blood Pressure 110/57 L 06/18/19 09:50 O2 Sat by Pulse Oximetry (%) aaox3 ambulating no acute distress Assessment: 06/18/19 13:46 mild withdrawal sx Plan: continue detox d/c in am
[2019-06-18] MEDS: THIAMINE HCL 100 MG TABLET (FP) PO SCH (22:21)
[2019-06-19] MEDS ORDERED: chlordiazePOXIDE HCL 10 MG CAPSULE PO ONE (05:00)
[2019-06-19] MEDS: METHADONE HCL 40 MG DISPERSABLE TABLET PO SCH (05:44)
[2019-06-19] MEDS: FLUoxetine HCL 20 MG CAPSULE PO SCH (10:37)
[2019-06-19] MEDS: PRENATAL VITAMINS W/ FOLIC ACID TABLET (FP) PO SCH (10:37)
[2019-06-19] MEDS: NICOTINE 21 MG/24 HOURS TOPICAL PATCH TD SCH (10:38)
[2019-06-19 11:15] VITALS: BP 113/51; PULSE 80; TEMP 98.8
[2019-06-19] MEDS: BACITRACIN 15 GM TUBE TOPICAL OINTMENT TP SCH (11:16)
--- NOTE | 2019-06-19 18:11 | DS ---
[facility] Detox Discharge Summary Admission Date: 06/15/19 Discharge Date: 06/19/19 - History Present History: Alcohol Dependence, Cocaine Dependence, Opioid Dependence, MMTP Additional Comments: PATIENT REPORTS THAT HE IS GOING TO [facility] ([place], [place]) FOR AFTERCARE. PATIENT GOING TO STAY WITH HIS PARENTS FOR THE NEXT FEW DAYS UNTIL A BED IS AVAILABLE AT [facility]. PATIENT WAS DISCHARGED FORM DETOX UNIT IN STABLE MEDICAL CONDITION. Pertinent Past History: History of Seizures (Disorder), GERD, Hep C, History of Depressive Disorder, History of Incomplete Quadriplegia at C5-C6 Level, Incontinence, MMTP, Nicotine Dependence, Use of a Walker as an Ambulatory Aid, Bipolar Disorder. - Physical Exam Results Vital Signs: Vital Signs Temperature 98.8 F 06/19/19 10:00 Pulse Rate 80 06/19/19 10:00 Respiratory Rate 16 06/19/19 10:00 Blood Pressure 113/51 L 06/19/19 10:00 O2 Sat by Pulse Oximetry (%) Pertinent Admission Physical Exam Findings: WITHDRAWAL SYMPTOMS. Laboratory Tests 06/16/19 06/16/19 06/16/19 08:00 08:00 08:00 WBC 3.3 L RBC 3.91 L Hgb 13.6 Hct 38.8 MCV 99.3 H MCH 34.7 H MCHC 35.0 RDW 14.5 Plt Count 182 MPV 8.5 Sodium 140 Potassium 3.9 Chloride 103 Carbon Dioxide 31 Anion Gap 6 L BUN 5.9 L Creatinine 0.6 Est GFR (CKD-EPI)AfAm 136.83 Est GFR (CKD-EPI)NonAf 118.06 Random Glucose 77 Calcium 9.1 Total Bilirubin 0.5 AST 28 ALT 22 Alkaline Phosphatase 86 Total Protein 6.8 Albumin 3.3 L RPR Titer Nonreactive LABS NOTED. - Treatment Hospital Course: Detox Protocol Followed, Detoxed Safely, Responded well, Discharged Condition Good, Rehab Referral Accepted Patient has Accepted a Rehab Referral to: [facility] ([place], [place]) - Medication Discharge Medications: Ambulatory Orders Docusate Sodium [Colace -] 100 mg PO DAILY 12/17/17 Baclofen [Lioresal -] 10 mg PO BID #30 tablet 12/21/17 Omeprazole Magnesium [Prilosec Otc] 20 mg PO DAILY 30 Days #30 tablet. 07/30/ 18 Fluoxetine HCl [Prozac -] 40 mg PO DAILY 06/15/19 Gabapentin [Neurontin] 300 mg PO TID 06/15/19 - Diagnosis (1) Alcohol dependence with withdrawal Status: Acute Qualifiers: Complication of substance-induced condition: uncomplicated Qualified Code(s ): F10.230 - Alcohol dependence with withdrawal, uncomplicated (2) Cocaine dependence Status: Chronic Qualifiers: Substance use status: uncomplicated Qualified Code(s): F14.20 - Cocaine dependence, uncomplicated (3) Depressive disorder Status: Chronic (4) GERD (gastroesophageal reflux disease) Status: Chronic Qualifiers: Esophagitis presence: esophagitis presence not specified Qualified Code(s) : K21.9 - Gastro-esophageal reflux disease without esophagitis (5) Hepatitis C carrier Status: Chronic (6) 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 Status: Chronic (7) Incontinence Status: Chronic Qualifiers: Incontinence type: urinary Urinary Incontinence type: unspecified incontinence Qualified Code(s): R32 - Unspecified urinary incontinence (8) Methadone maintenance therapy patient Status: Chronic (9) Nicotine dependence Status: Chronic Qualifiers: Nicotine product type: cigarettes Substance use status: in withdrawal Qualified Code(s): F17.213 - Nicotine dependence, cigarettes, with withdrawal (10) Walker as ambulation aid Status: Chronic (11) Alcohol-induced mood disorder Status: Acute (12) Alcohol-induced sleep disorder Status: Acute (13) Bipolar disorder Status: Chronic Qualifiers: Active/Remission status: remission status unspecified Qualified Code(s): F31.9 - Bipolar disorder, unspecified (14) Seizure disorder Status: Chronic - AMA Did Patient Leave Against Medical Advice: No
== END 2019-06-19 11:35 | disposition home or self-care (01) | DRG 773 ==
LOC: YASAS 13:17 → Y6N 19:02
PROVIDERS: ADMIT Allergy & Immunology; ATTEND Allergy & Immunology
PROC: HZ2ZZZZ Detoxification Services for Substance Abuse Treatment (ICD-10-PCS; principal; 2019-06-15)
DX: F10.230 Alcohol dependence with withdrawal, uncomplicated (principal); F11.23 Opioid dependence with withdrawal; F14.20 Cocaine dependence, uncomplicated; F17.210 Nicotine dependence, cigarettes, uncomplicated; F10.24 Alcohol dependence with alcohol-induced mood disorder; F10.282 Alcohol dependence with alcohol-induced sleep disorder; F31.9 Bipolar disorder, unspecified; G82.54 Quadriplegia, C5-C7 incomplete; B18.2 Chronic viral hepatitis C; G40.909 Epilepsy, unspecified, not intractable, without status epilepticus; R21 Rash and other nonspecific skin eruption; R32 Unspecified urinary incontinence; Z88.8 Allergy status to other drugs, medicaments and biological substances; Z99.89 Dependence on other enabling machines and devices
CPT/HCPCS: 36415; 80053; 85027; 86593; 93005; 93010

== ENCOUNTER 2021-02-03 05:29 | Inpatient (IN) | payer OTHER ==
[2021-02-03] MEDS ORDERED: methaDONE HCL 10 MG TABLET (FOR DETOX USE ONLY) PO ONE (13:00)
[2021-02-03] MEDS ORDERED: methaDONE HCL 40 MG DISPERSABLE TABLET ONE (13:03)
[2021-02-03 21:00] LABS: BASO % 0.8 % (0-2.0); HEMATOCRIT 33.1 % (35.4-49); HEMOGLOBIN 12.1 GM/dL (11.7-16.9); LYMPH % 32.9 % (8-40); MCH 35.3 pg (25.7-33.7); MCHC 36.5 g/dl (32.0-35.9); MEAN CELL VOLUME 96.6 fl (80-96); MEAN PLT VOLUME 7.4 fl (7.5-11.1); MONO % 12.6 % (3.8-10.2); NEUT % 49.7 % (42.8-82.8); PLATELET COUNT 137 10^3/uL (134-434); RBC 3.43 M/mm3 (4.00-5.60); RDW 14.4 % (11.9-15.9); WHITE BLOOD COUNT 3.6 K/mm3 (4.0-10.0)
[2021-02-03 21:19] LABS: CHLORIDE 108 mmol/L (98-107); SODIUM 142 mmol/L (136-145)
[2021-02-03 21:21] LABS: ANION GAP 4 MMOL/L (8-16); BLOOD UREA NITROGEN 16.9 mg/dL (7-18); CALCIUM 8.7 mg/dL (8.5-10.1); CO2 31 mmol/L (21-32)
[2021-02-03 21:22] LABS: GLUCOSE,RANDOM 106 mg/dL (74-106)
[2021-02-03 21:24] LABS: CREATININE 0.6 mg/dL (0.55-1.3); SGOT/AST 25 U/L (15-37); SGPT/ALT 19 U/L (13-61)
[2021-02-03 21:26] LABS: BILIRUBIN,TOTAL 0.4 mg/dL (0.2-1); TOT PROT 6.3 g/dl (6.4-8.2)
[2021-02-03 21:27] LABS: ALK PHOS 94 U/L (45-117)
[2021-02-03 22:31] LABS: PH,URINE 5.5 (5.0-8.0); URINE APPEARANCE CLEAR; URINE BILIRUBIN 1+ (NEGATIVE); URINE COLOR DK YELLOW; URINE GLUCOSE (UA) NEGATIVE (NEGATIVE); URINE KETONE NEGATIVE (NEGATIVE); URINE LEUK ESTERASE NEGATIVE (NEGATIVE); URINE NITRITE NEGATIVE (NEGATIVE); URINE PROTEIN NEGATIVE (NEGATIVE)
[2021-02-03 22:41] LABS: URINE BENZODIAZEPINES NEGATIVE (NEGATIVE)
[2021-02-03 22:42] LABS: OPIATES, URI NEGATIVE (NEGATIVE); PHENCYCLIDINE,URINE NEGATIVE (NEGATIVE); URINE BARBITURATES NEGATIVE (NEGATIVE)
[2021-02-03 22:49] LABS: COCAINE, UR POSITIVE (NEGATIVE); METHADONE, UR POSITIVE (NEGATIVE); URINE AMPHETAMINES NEGATIVE (NEGATIVE)
[2021-02-03] MEDS ORDERED: LORazepam 1 MG TABLET PO PRN (23:18)
[2021-02-04] MEDS: GABAPENTIN 300 MG CAPSULE PO SCH ×3 (05:59→21:06)
[2021-02-04] MEDS: LORazepam 2 MG/ML SDV VIAL IVPUSH PRN ×3 (06:01→21:06)
[2021-02-04 08:25] LABS: ALBUMIN 2.8 g/dl (3.4-5.0); CALCIUM 8.4 mg/dL (8.5-10.1)
[2021-02-04 08:26] LABS: BLOOD UREA NITROGEN 18.9 mg/dL (7-18); IRON SERUM 81 ug/dL (50-175)
[2021-02-04 08:27] LABS: TOTAL IRON BINDING CAPACITY 267 ug/dL (250-450)
[2021-02-04 08:29] LABS: CREATININE 0.5 mg/dL (0.55-1.3); PHOSPHOROUS 3.1 mg/dL (2.5-4.9)
[2021-02-04 08:30] LABS: BILIRUBIN,TOTAL 0.7 mg/dL (0.2-1); TOT PROT 6.2 g/dl (6.4-8.2)
[2021-02-04 08:51] LABS: HEMATOCRIT 33.2 % (35.4-49); HEMOGLOBIN 12.1 GM/dL (11.7-16.9); MCH 35.5 pg (25.7-33.7); MCHC 36.4 g/dl (32.0-35.9); MEAN CELL VOLUME 97.6 fl (80-96); MEAN PLT VOLUME 7.8 fl (7.5-11.1); PLATELET COUNT 126 10^3/uL (134-434); RDW 14.5 % (11.9-15.9); WHITE BLOOD COUNT 4.1 K/mm3 (4.0-10.0)
[2021-02-04] MEDS: ENOXAPARIN NA (PORCINE) 40 MG/0.4 ML DISP.SYRIN SQ SCH (10:00)
[2021-02-04] MEDS: FOLIC ACID 1 MG TABLET (FP) PO SCH (10:00)
[2021-02-04] MEDS: THIAMINE HCL 100 MG TABLET (FP) PO SCH (10:00)
[2021-02-04] MEDS: FLUoxetine HCL 20 MG CAPSULE PO SCH (12:30)
[2021-02-04] MEDS ORDERED: methaDONE HCL 10 MG TABLET (FOR DETOX USE ONLY) PO SCH (12:45)
[2021-02-04] MEDS ORDERED: methaDONE HCL 10 MG TABLET ONE (13:57)
[2021-02-04] MEDS ORDERED: methaDONE HCL 40 MG DISPERSABLE TABLET ONE (13:58)
[2021-02-04] MEDS: methaDONE 80 MG, methaDONE 10 MG PO SCH (14:17)
[2021-02-05] MEDS ORDERED: methaDONE HCL 10 MG TABLET ONE (05:43)
[2021-02-05] MEDS ORDERED: methaDONE HCL 40 MG DISPERSABLE TABLET ONE (05:43)
[2021-02-05] MEDS: methaDONE 80 MG, methaDONE 10 MG PO SCH (05:59)
[2021-02-05] MEDS: GABAPENTIN 300 MG CAPSULE PO SCH ×3 (06:00→21:30)
[2021-02-05 08:30] LABS: BASO % 0.7 % (0-2.0); HEMATOCRIT 35.6 % (35.4-49); HEMOGLOBIN 12.8 GM/dL (11.7-16.9); MCH 35.5 pg (25.7-33.7); MCHC 35.9 g/dl (32.0-35.9); MEAN CELL VOLUME 98.9 fl (80-96); MEAN PLT VOLUME 8.4 fl (7.5-11.1); MONO % 10.2 % (3.8-10.2); NEUT % 39.1 % (42.8-82.8); PLATELET COUNT 157 10^3/uL (134-434); RDW 14.6 % (11.9-15.9); WHITE BLOOD COUNT 4.6 K/mm3 (4.0-10.0)
[2021-02-05 08:39] LABS: BLOOD UREA NITROGEN 15.2 mg/dL (7-18); CALCIUM 8.7 mg/dL (8.5-10.1)
[2021-02-05 08:43] LABS: CREATININE 0.5 mg/dL (0.55-1.3)
[2021-02-05 08:44] LABS: TOT PROT 6.7 g/dl (6.4-8.2)
[2021-02-05 08:45] LABS: BILIRUBIN,TOTAL 0.9 mg/dL (0.2-1)
[2021-02-05] MEDS ORDERED: PT OWN MED DRAWER 7, Y5N ONE (09:49)
[2021-02-05] MEDS: FLUoxetine HCL 20 MG CAPSULE PO SCH (09:54)
[2021-02-05] MEDS: ENOXAPARIN NA (PORCINE) 40 MG/0.4 ML DISP.SYRIN SQ SCH (09:54)
[2021-02-05] MEDS: FOLIC ACID 1 MG TABLET (FP) PO SCH (09:54)
[2021-02-05] MEDS: THIAMINE HCL 100 MG TABLET (FP) PO SCH (09:55)
[2021-02-05 16:45] VITALS: BMI 18.8
[2021-02-05] MEDS ORDERED: LORazepam 2 MG/ML SDV VIAL IVPUSH PRN (20:07)
[2021-02-06] MEDS ORDERED: methaDONE HCL 10 MG TABLET ONE (04:04)
[2021-02-06] MEDS ORDERED: methaDONE HCL 40 MG DISPERSABLE TABLET ONE (04:05)
[2021-02-06] MEDS: methaDONE 80 MG, methaDONE 10 MG PO SCH (05:31)
[2021-02-06] MEDS: GABAPENTIN 300 MG CAPSULE PO SCH ×3 (05:32→21:55)
[2021-02-06] MEDS ORDERED: PT OWN MED DRAWER 7, Y5N ONE (09:16)
[2021-02-06] MEDS: FOLIC ACID 1 MG TABLET (FP) PO SCH (09:42)
[2021-02-06] MEDS: ENOXAPARIN NA (PORCINE) 40 MG/0.4 ML DISP.SYRIN SQ SCH (09:42)
[2021-02-06] MEDS: THIAMINE HCL 100 MG TABLET (FP) PO SCH (09:42)
[2021-02-06] MEDS: FLUoxetine HCL 20 MG CAPSULE PO SCH (09:42)
[2021-02-06] MEDS ORDERED: LORazepam 0.5 MG TABLET PO PRN (12:57)
[2021-02-06] MEDS ORDERED: methaDONE HCL 40 MG DISPERSABLE TABLET PO SCH (12:58)
[2021-02-06 14:16] LABS: ARTERIAL BLD GAS O2 SATURATION 95.2 % (95-98); ARTERIAL BLOOD GAS BASE EXCESS 3.9 mmol/L (-2-2); ARTERIAL BLOOD GAS PO2 76.8 mmHg (80-100); ARTERIAL BLOOD GAS pH 7.397 (7.350-7.450)
[2021-02-06 14:18] LABS: ALLENS TEST POSITIVE
[2021-02-07] MEDS: GABAPENTIN 300 MG CAPSULE PO SCH ×2 (05:49→14:18)
[2021-02-07] MEDS ORDERED: PT OWN MED DRAWER 7, Y5N ONE (10:14)
[2021-02-07] MEDS: FOLIC ACID 1 MG TABLET (FP) PO SCH (10:21)
[2021-02-07] MEDS: FLUoxetine HCL 20 MG CAPSULE PO SCH (10:21)
[2021-02-07] MEDS: ENOXAPARIN NA (PORCINE) 40 MG/0.4 ML DISP.SYRIN SQ SCH (10:21)
[2021-02-07] MEDS: THIAMINE HCL 100 MG TABLET (FP) PO SCH (10:21)
[2021-02-07 14:45] VITALS: BP 123/79; PULSE 66; TEMP 98.2
== END 2021-02-07 15:26 | disposition other institution (70) | DRG 773 ==
LOC: JER 05:29 → JERBED 19:26 → J7W 02-04 02:06
PROVIDERS: ADMIT Internal Medicine; ATTEND Internal Medicine
DX: F10.230 Alcohol dependence with withdrawal, uncomplicated (principal); K21.9 Gastro-esophageal reflux disease without esophagitis; F17.210 Nicotine dependence, cigarettes, uncomplicated; F31.9 Bipolar disorder, unspecified; R56.9 Unspecified convulsions; F11.20 Opioid dependence, uncomplicated; F14.10 Cocaine abuse, uncomplicated
CPT/HCPCS: 36415; 36600; 80053; 80307; 81003; 82140; 82607; 82746; 82803; 83540; 83550; 83735; 84100; 85025; 85027; 93005; 93010; 97116-GP; 97161-GP; 99285-25; C9803; U0003; U0005

== ENCOUNTER 2021-02-07 16:48 | Observation (INO) | payer OTHER ==
[2021-02-07 19:42] LABS: BASO % 0.5 % (0-2.0); EOS % 10.4 % (0-4.5); HEMATOCRIT 35.3 % (35.4-49); HEMOGLOBIN 12.7 GM/dL (11.7-16.9); LYMPH % 24.8 % (8-40); MCH 35.1 pg (25.7-33.7); MCHC 35.9 g/dl (32.0-35.9); MEAN PLT VOLUME 8.3 fl (7.5-11.1); NEUT % 55.3 % (42.8-82.8); PLATELET COUNT 158 10^3/uL (134-434); RBC 3.61 M/mm3 (4.00-5.60); RDW 15.1 % (11.9-15.9); WHITE BLOOD COUNT 4.9 K/mm3 (4.0-10.0)
[2021-02-07 19:56] LABS: CALCIUM 9.1 mg/dL (8.5-10.1)
[2021-02-07 19:57] LABS: ALBUMIN 3.2 g/dl (3.4-5.0); BLOOD UREA NITROGEN 19.9 mg/dL (7-18)
[2021-02-07 20:01] LABS: CREATININE 0.6 mg/dL (0.55-1.3)
[2021-02-07 20:02] LABS: TOT PROT 7.2 g/dl (6.4-8.2)
[2021-02-07 20:04] LABS: BILIRUBIN,TOTAL 0.5 mg/dL (0.2-1)
[2021-02-07] MEDS ORDERED: LORazepam 1 MG TABLET PO PRN (21:39)
[2021-02-07] MEDS ORDERED: FOLIC ACID INJECTION - 1 MG, THIAMINE HCL 100 MG, MULTIVIT INJECTION ADULT 10 ML in SOD... IVPB ONE (22:27)
[2021-02-07] MEDS ORDERED: ENOXAPARIN NA (PORCINE) 60 MG/0.6 ML DISP.SYRIN SQ ONE (22:58)
[2021-02-07] MEDS: ENOXAPARIN NA (PORCINE) 40 MG/0.4 ML DISP.SYRIN SQ SCH (23:09)
[2021-02-07] MEDS ORDERED: LORazepam 1 MG TABLET ONE (23:12)
[2021-02-08 03:54] LABS: URINE APPEARANCE CLEAR; URINE BILIRUBIN NEGATIVE (NEGATIVE); URINE COLOR YELLOW; URINE GLUCOSE (UA) NEGATIVE (NEGATIVE); URINE KETONE NEGATIVE (NEGATIVE); URINE LEUK ESTERASE NEGATIVE (NEGATIVE); URINE NITRITE NEGATIVE (NEGATIVE); URINE PROTEIN NEGATIVE (NEGATIVE)
[2021-02-08 04:07] VITALS: BMI 25.8
[2021-02-08] MEDS: GABAPENTIN 300 MG CAPSULE PO SCH ×3 (06:47→21:33)
[2021-02-08] MEDS ORDERED: methaDONE HCL 10 MG TABLET ONE (10:22)
[2021-02-08] MEDS ORDERED: methaDONE HCL 40 MG DISPERSABLE TABLET ONE (10:22)
[2021-02-08] MEDS ORDERED: PT OWN MED DRAWER 7, Y5N ONE (10:23)
[2021-02-08] MEDS: methaDONE 80 MG, methaDONE 10 MG PO SCH (10:26)
[2021-02-08] MEDS: THIAMINE HCL 200 MG/2 ML VIAL IVPB SCH (10:27)
[2021-02-08] MEDS: PANTOPRAZOLE 20 MG TABLET PO SCH (10:27)
[2021-02-08] MEDS: FOLIC ACID 1 MG TABLET (FP) PO SCH (10:27)
[2021-02-08] MEDS: ENOXAPARIN NA (PORCINE) 40 MG/0.4 ML DISP.SYRIN SQ SCH (10:27)
[2021-02-08 10:45] LABS: BASO % 0.4 % (0-2.0); EOS % 8.8 % (0-4.5); HEMATOCRIT 35.4 % (35.4-49); HEMOGLOBIN 12.8 GM/dL (11.7-16.9); LYMPH % 21.2 % (8-40); MCH 35.7 pg (25.7-33.7); MCHC 36.1 g/dl (32.0-35.9); MEAN CELL VOLUME 98.9 fl (80-96); MEAN PLT VOLUME 8.1 fl (7.5-11.1); MONO % 13.2 % (3.8-10.2); NEUT % 56.4 % (42.8-82.8); PLATELET COUNT 150 10^3/uL (134-434); RBC 3.58 M/mm3 (4.00-5.60); RDW 14.9 % (11.9-15.9); WHITE BLOOD COUNT 5.4 K/mm3 (4.0-10.0)
[2021-02-08 11:07] LABS: CALCIUM 8.4 mg/dL (8.5-10.1)
[2021-02-08 11:08] LABS: BLOOD UREA NITROGEN 15.2 mg/dL (7-18)
[2021-02-08 11:10] LABS: PHOSPHOROUS 3.4 mg/dL (2.5-4.9)
[2021-02-08 11:11] LABS: CREATININE 0.5 mg/dL (0.55-1.3)
[2021-02-08 11:13] LABS: BILIRUBIN,TOTAL 0.7 mg/dL (0.2-1); TOT PROT 6.5 g/dl (6.4-8.2)
[2021-02-08] MEDS: FLUoxetine HCL 20 MG CAPSULE PO SCH (12:33)
[2021-02-08] MEDS: NICOTINE 7 MG/24 HOURS TOPICAL PATCH TD SCH (12:33)
[2021-02-08] MEDS ORDERED: ACETAMINOPHEN 1000 MG/100 ML VIAL (NON FORMULARY) IVPB ONE (21:29)
[2021-02-08] MEDS ORDERED: LORazepam 1 MG TABLET PO ONE (21:32)
[2021-02-09] MEDS ORDERED: methaDONE HCL 10 MG TABLET ONE (06:03)
[2021-02-09] MEDS ORDERED: methaDONE HCL 40 MG DISPERSABLE TABLET ONE (06:03)
[2021-02-09] MEDS: methaDONE 80 MG, methaDONE 10 MG PO SCH (06:12)
[2021-02-09] MEDS: GABAPENTIN 300 MG CAPSULE PO SCH ×3 (06:12→21:35)
[2021-02-09] MEDS ORDERED: PT OWN MED DRAWER 7, Y5N ONE (09:20)
[2021-02-09] MEDS: FLUoxetine HCL 20 MG CAPSULE PO SCH (10:01)
[2021-02-09] MEDS: THIAMINE HCL 200 MG/2 ML VIAL IVPB SCH (10:01)
[2021-02-09] MEDS: NICOTINE 7 MG/24 HOURS TOPICAL PATCH TD SCH ×2 (10:01→12:12)
[2021-02-09] MEDS: ENOXAPARIN NA (PORCINE) 40 MG/0.4 ML DISP.SYRIN SQ SCH (10:01)
[2021-02-09] MEDS: PANTOPRAZOLE 20 MG TABLET PO SCH (10:01)
[2021-02-09] MEDS: FOLIC ACID 1 MG TABLET (FP) PO SCH (10:01)
[2021-02-09 11:24] LABS: BF WBC & OTHER NUCLEATED CELLS 6207 /mm3
[2021-02-09 11:34] LABS: BODY FLUID BASOPHIL 1 %; BODY FLUID MONOCYTE 4 %
[2021-02-09] MEDS ORDERED: ACETAMINOPHEN 325 MG TABLET (FP) PO PRN (11:37)
[2021-02-09] MEDS: NICOTINE 21 MG/24 HOURS TOPICAL PATCH TD SCH (12:11)
[2021-02-09] MEDS: ACETAMINOPHEN 325 MG TABLET (FP) PO PRN ×2 (12:11→20:24)
[2021-02-09] MEDS: traZODone HCL 50 MG TABLET (FP) PO PRN (21:38)
[2021-02-09] MEDS ORDERED: traZODone HCL 50 MG TABLET (FP) PO SCH (22:00)
[2021-02-10] MEDS ORDERED: methaDONE HCL 10 MG TABLET ONE (05:37)
[2021-02-10] MEDS ORDERED: methaDONE HCL 40 MG DISPERSABLE TABLET ONE (05:37)
[2021-02-10] MEDS: ACETAMINOPHEN 325 MG TABLET (FP) PO PRN ×3 (05:40→21:50)
[2021-02-10] MEDS: methaDONE 80 MG, methaDONE 10 MG PO SCH (05:41)
[2021-02-10] MEDS: GABAPENTIN 300 MG CAPSULE PO SCH ×3 (05:41→21:50)
[2021-02-10] MEDS ORDERED: PT OWN MED DRAWER 7, Y5N ONE (09:51)
[2021-02-10 10:02] LABS: HEMATOCRIT 32.7 % (35.4-49); HEMOGLOBIN 11.8 GM/dL (11.7-16.9); MCH 35.7 pg (25.7-33.7); MCHC 36.2 g/dl (32.0-35.9); MEAN CELL VOLUME 98.6 fl (80-96); MEAN PLT VOLUME 9.2 fl (7.5-11.1); PLATELET COUNT 172 10^3/uL (134-434); RBC 3.32 M/mm3 (4.00-5.60); RDW 14.9 % (11.9-15.9); WHITE BLOOD COUNT 6.8 K/mm3 (4.0-10.0)
[2021-02-10] MEDS: ENOXAPARIN NA (PORCINE) 40 MG/0.4 ML DISP.SYRIN SQ SCH (10:25)
[2021-02-10] MEDS: FOLIC ACID 1 MG TABLET (FP) PO SCH (10:26)
[2021-02-10] MEDS: FLUoxetine HCL 20 MG CAPSULE PO SCH (10:26)
[2021-02-10] MEDS: NICOTINE 21 MG/24 HOURS TOPICAL PATCH TD SCH (10:26)
[2021-02-10] MEDS: PANTOPRAZOLE 20 MG TABLET PO SCH (10:26)
[2021-02-10] MEDS: THIAMINE HCL 200 MG/2 ML VIAL IVPB SCH (10:27)
[2021-02-10 10:35] LABS: CALCIUM 8.5 mg/dL (8.5-10.1)
[2021-02-10 10:36] LABS: BLOOD UREA NITROGEN 17.6 mg/dL (7-18)
[2021-02-10 10:39] LABS: CREATININE 0.6 mg/dL (0.55-1.3)
[2021-02-10] MEDS ORDERED: DEXTROSE 5%-WATER - 50 ML IVPB ONE (12:23)
[2021-02-10] MEDS ORDERED: cefTRIAXone SODIUM 1 GM VIAL ONE (12:23)
[2021-02-10] MEDS: CEFTRIAXONE 1 GM in DEXTROSE 5%-WATER - 50 ML IVPB SCH (12:49)
[2021-02-10] MEDS: KETOROLAC TROMETHAMINE 15 MG/ML VIAL IVPUSH PRN (15:57)
[2021-02-10] MEDS: traZODone HCL 50 MG TABLET (FP) PO PRN (21:51)
[2021-02-11] MEDS ORDERED: methaDONE HCL 10 MG TABLET ONE (04:49)
[2021-02-11] MEDS ORDERED: methaDONE HCL 40 MG DISPERSABLE TABLET ONE (04:49)
[2021-02-11] MEDS: ACETAMINOPHEN 325 MG TABLET (FP) PO PRN (05:04)
[2021-02-11] MEDS: GABAPENTIN 300 MG CAPSULE PO SCH ×3 (05:05→21:40)
[2021-02-11] MEDS: methaDONE 80 MG, methaDONE 10 MG PO SCH (05:05)
[2021-02-11 09:21] LABS: HEMATOCRIT 31.2 % (35.4-49); HEMOGLOBIN 11.3 GM/dL (11.7-16.9); MCH 35.5 pg (25.7-33.7); MCHC 36.2 g/dl (32.0-35.9); MEAN CELL VOLUME 98.1 fl (80-96); MEAN PLT VOLUME 8.4 fl (7.5-11.1); PLATELET COUNT 163 10^3/uL (134-434); RBC 3.18 M/mm3 (4.00-5.60); RDW 14.9 % (11.9-15.9)
[2021-02-11 09:47] LABS: BLOOD UREA NITROGEN 14.7 mg/dL (7-18)
[2021-02-11 09:48] LABS: ALBUMIN 2.7 g/dl (3.4-5.0)
[2021-02-11 09:49] LABS: CALCIUM 8.3 mg/dL (8.5-10.1)
[2021-02-11 09:53] LABS: CREATININE 0.5 mg/dL (0.55-1.3)
[2021-02-11 09:54] LABS: BILIRUBIN,TOTAL 0.7 mg/dL (0.2-1); TOT PROT 6.7 g/dl (6.4-8.2)
[2021-02-11] MEDS ORDERED: cefTRIAXone SODIUM 1 GM VIAL ONE (10:34)
[2021-02-11] MEDS ORDERED: PT OWN MED DRAWER 7, Y5N ONE ×2 (10:34→17:55)
[2021-02-11] MEDS ORDERED: DEXTROSE 5%-WATER - 50 ML IVPB ONE (10:34)
[2021-02-11 10:38] LABS: ANISOCYTOSIS 0; MACROCYTOSIS 0; PLATELET ESTIMATE DECREASED
[2021-02-11] MEDS: CEFTRIAXONE 1 GM in DEXTROSE 5%-WATER - 50 ML IVPB SCH (11:11)
[2021-02-11] MEDS: ENOXAPARIN NA (PORCINE) 40 MG/0.4 ML DISP.SYRIN SQ SCH (11:12)
[2021-02-11] MEDS: FOLIC ACID 1 MG TABLET (FP) PO SCH (11:12)
[2021-02-11] MEDS: PANTOPRAZOLE 20 MG TABLET PO SCH (11:12)
[2021-02-11] MEDS: FLUoxetine HCL 20 MG CAPSULE PO SCH (11:12)
[2021-02-11] MEDS: NICOTINE 21 MG/24 HOURS TOPICAL PATCH TD SCH (11:12)
[2021-02-11] MEDS: KETOROLAC TROMETHAMINE 15 MG/ML VIAL IVPUSH PRN ×2 (13:18→21:39)
[2021-02-11] MEDS: THIAMINE HCL 200 MG/2 ML VIAL IVPB SCH (13:19)
[2021-02-11] MEDS ORDERED: oxyCODONE HCL 5 MG TABLET PO PRN (15:48)
[2021-02-11] MEDS: traZODone HCL 50 MG TABLET (FP) PO PRN (21:40)
[2021-02-12] MEDS ORDERED: methaDONE HCL 10 MG TABLET ONE (05:18)
[2021-02-12] MEDS ORDERED: methaDONE HCL 40 MG DISPERSABLE TABLET ONE (05:18)
[2021-02-12] MEDS: GABAPENTIN 300 MG CAPSULE PO SCH ×3 (05:23→21:10)
[2021-02-12] MEDS: ACETAMINOPHEN 325 MG TABLET (FP) PO PRN (05:23)
[2021-02-12] MEDS: methaDONE 80 MG, methaDONE 10 MG PO SCH (05:24)
[2021-02-12 09:12] LABS: BASO % 0.7 % (0-2.0); EOS % 4.4 % (0-4.5); HEMATOCRIT 30.7 % (35.4-49); HEMOGLOBIN 10.9 GM/dL (11.7-16.9); MCH 35.5 pg (25.7-33.7); MCHC 35.7 g/dl (32.0-35.9); MEAN CELL VOLUME 99.6 fl (80-96); MEAN PLT VOLUME 8.3 fl (7.5-11.1); NEUT % 68.9 % (42.8-82.8); PLATELET COUNT 192 10^3/uL (134-434); RBC 3.08 M/mm3 (4.00-5.60); WHITE BLOOD COUNT 5.7 K/mm3 (4.0-10.0)
[2021-02-12 09:29] LABS: CALCIUM 8.2 mg/dL (8.5-10.1)
[2021-02-12 09:30] LABS: ALBUMIN 2.5 g/dl (3.4-5.0); BLOOD UREA NITROGEN 14.8 mg/dL (7-18); MAGNESIUM 2.4 mg/dL (1.8-2.4)
[2021-02-12 09:33] LABS: CREATININE 0.5 mg/dL (0.55-1.3); PHOSPHOROUS 4.4 mg/dL (2.5-4.9)
[2021-02-12 09:34] LABS: BILIRUBIN,TOTAL 0.4 mg/dL (0.2-1); TOT PROT 6.5 g/dl (6.4-8.2)
[2021-02-12] MEDS ORDERED: PT OWN MED DRAWER 7, Y5N ONE ×2 (10:59→18:16)
[2021-02-12] MEDS ORDERED: cefTRIAXone SODIUM 1 GM VIAL ONE (10:59)
[2021-02-12] MEDS ORDERED: DEXTROSE 5%-WATER - 50 ML IVPB ONE (10:59)
[2021-02-12] MEDS: NICOTINE 21 MG/24 HOURS TOPICAL PATCH TD SCH (11:06)
[2021-02-12] MEDS: CEFTRIAXONE 1 GM in DEXTROSE 5%-WATER - 50 ML IVPB SCH (11:06)
[2021-02-12] MEDS: ENOXAPARIN NA (PORCINE) 40 MG/0.4 ML DISP.SYRIN SQ SCH (11:06)
[2021-02-12] MEDS: FLUoxetine HCL 20 MG CAPSULE PO SCH (11:07)
[2021-02-12] MEDS: FOLIC ACID 1 MG TABLET (FP) PO SCH (11:07)
[2021-02-12] MEDS: PANTOPRAZOLE 20 MG TABLET PO SCH (11:07)
[2021-02-12] MEDS: KETOROLAC TROMETHAMINE 15 MG/ML VIAL IVPUSH PRN (11:08)
[2021-02-12] MEDS ORDERED: SODIUM CHLORIDE 0.9% 500 ML INFUS.BAG IV ONE (11:30)
[2021-02-12] MEDS: THIAMINE HCL 200 MG/2 ML VIAL IVPB SCH (13:46)
[2021-02-12] MEDS: NEOMYCIN/POLYMYXIN/BACITRACIN (TRIPLE ANTIBIOTIC) 28 GM OINTMENT TP SCH (18:05)
[2021-02-12] MEDS: traZODone HCL 50 MG TABLET (FP) PO PRN (21:14)
[2021-02-13] MEDS ORDERED: methaDONE HCL 10 MG TABLET ONE (05:19)
[2021-02-13] MEDS ORDERED: methaDONE HCL 40 MG DISPERSABLE TABLET ONE (05:19)
[2021-02-13] MEDS: GABAPENTIN 300 MG CAPSULE PO SCH ×3 (05:31→21:15)
[2021-02-13] MEDS: methaDONE 80 MG, methaDONE 10 MG PO SCH (05:31)
[2021-02-13] MEDS: KETOROLAC TROMETHAMINE 15 MG/ML VIAL IVPUSH PRN ×2 (05:32→15:58)
[2021-02-13] MEDS ORDERED: cefTRIAXone SODIUM 1 GM VIAL ONE (09:06)
[2021-02-13] MEDS ORDERED: PT OWN MED DRAWER 7, Y5N ONE (09:07)
[2021-02-13] MEDS ORDERED: DEXTROSE 5%-WATER - 50 ML IVPB ONE (09:07)
[2021-02-13] MEDS: PANTOPRAZOLE 20 MG TABLET PO SCH (09:21)
[2021-02-13] MEDS: FLUoxetine HCL 20 MG CAPSULE PO SCH (09:21)
[2021-02-13] MEDS: NICOTINE 21 MG/24 HOURS TOPICAL PATCH TD SCH (09:21)
[2021-02-13] MEDS: FOLIC ACID 1 MG TABLET (FP) PO SCH (09:21)
[2021-02-13] MEDS: ENOXAPARIN NA (PORCINE) 40 MG/0.4 ML DISP.SYRIN SQ SCH (10:08)
[2021-02-13] MEDS: CEFTRIAXONE 1 GM in DEXTROSE 5%-WATER - 50 ML IVPB SCH (10:08)
[2021-02-13] MEDS: THIAMINE HCL 200 MG/2 ML VIAL IVPB SCH (10:08)
[2021-02-13 11:45] LABS: BASO % 0.3 % (0-2.0); EOS % 9.6 % (0-4.5); HEMATOCRIT 29.5 % (35.4-49); HEMOGLOBIN 10.6 GM/dL (11.7-16.9); MCH 35.3 pg (25.7-33.7); MEAN PLT VOLUME 8.2 fl (7.5-11.1); MONO % 10.4 % (3.8-10.2); NEUT % 56.7 % (42.8-82.8); PLATELET COUNT 210 10^3/uL (134-434); WHITE BLOOD COUNT 4.8 K/mm3 (4.0-10.0)
[2021-02-13 12:28] LABS: CALCIUM 8.5 mg/dL (8.5-10.1)
[2021-02-13 12:29] LABS: ALBUMIN 2.5 g/dl (3.4-5.0); BLOOD UREA NITROGEN 12.7 mg/dL (7-18)
[2021-02-13 12:33] LABS: CREATININE 0.4 mg/dL (0.55-1.3)
[2021-02-13 12:34] LABS: BILIRUBIN,TOTAL 0.2 mg/dL (0.2-1); TOT PROT 6.3 g/dl (6.4-8.2)
[2021-02-13] MEDS: NEOMYCIN/POLYMYXIN/BACITRACIN (TRIPLE ANTIBIOTIC) 28 GM OINTMENT TP SCH (15:57)
[2021-02-13] MEDS: traZODone HCL 50 MG TABLET (FP) PO PRN (21:15)
[2021-02-14] MEDS ORDERED: methaDONE HCL 40 MG DISPERSABLE TABLET ONE (05:14)
[2021-02-14] MEDS ORDERED: methaDONE HCL 10 MG TABLET ONE (05:14)
[2021-02-14] MEDS: GABAPENTIN 300 MG CAPSULE PO SCH ×2 (05:17→13:26)
[2021-02-14] MEDS: methaDONE 80 MG, methaDONE 10 MG PO SCH (05:17)
[2021-02-14] MEDS: KETOROLAC TROMETHAMINE 15 MG/ML VIAL IVPUSH PRN (05:50)
[2021-02-14] MEDS ORDERED: cefTRIAXone SODIUM 1 GM VIAL ONE (09:47)
[2021-02-14] MEDS ORDERED: DEXTROSE 5%-WATER - 50 ML IVPB ONE (09:47)
[2021-02-14] MEDS ORDERED: CEFTRIAXONE 2 GM in DEXTROSE 5%-WATER 2 GM/100 ML BAG IVPB SCH (10:30)
[2021-02-14] MEDS: FOLIC ACID 1 MG TABLET (FP) PO SCH (10:52)
[2021-02-14] MEDS: ENOXAPARIN NA (PORCINE) 40 MG/0.4 ML DISP.SYRIN SQ SCH (10:52)
[2021-02-14] MEDS: NICOTINE 21 MG/24 HOURS TOPICAL PATCH TD SCH (10:52)
[2021-02-14] MEDS: PANTOPRAZOLE 20 MG TABLET PO SCH (10:52)
[2021-02-14] MEDS: THIAMINE HCL 200 MG/2 ML VIAL IVPB SCH (10:53)
[2021-02-14] MEDS: NEOMYCIN/POLYMYXIN/BACITRACIN (TRIPLE ANTIBIOTIC) 28 GM OINTMENT TP SCH (10:53)
[2021-02-14] MEDS ORDERED: PT OWN MED DRAWER 7, Y5N ONE (10:54)
[2021-02-14] MEDS ORDERED: DEXTROSE 5%-WATER 100 ML IVPB ONE (10:55)
[2021-02-14] MEDS: FLUoxetine HCL 20 MG CAPSULE PO SCH (10:56)
[2021-02-14] MEDS: CEFTRIAXONE 1 GM in DEXTROSE 5%-WATER - 50 ML IVPB SCH (11:01)
[2021-02-14 15:32] VITALS: BP 136/70; PULSE 60; TEMP 98.7
[2021-02-15] MEDS ORDERED: CEFTRIAXONE 2 GM in DEXTROSE 5%-WATER 2 GM/100 ML BAG IVPB SCH (10:00)
== END 2021-02-14 16:00 | disposition other institution (70) ==
LOC: JER 16:48 → UNDOADMOB 18:23 → JERBED 18:23 → INTOOBSV 18:23 → JERBED 23:42 → J5S 23:42 → JERBED 02-08 11:12 → J5S 02-08 11:12
PROVIDERS: ADMIT Internal Medicine; ATTEND Internal Medicine
PROC: 3E0337Z Introduction of Electrolytic and Water Balance Substance into Peripheral Vein, Percutaneous Approach (ICD-10-PCS; principal; 2021-02-08)
PROC: 3E033GC Introduction of Other Therapeutic Substance into Peripheral Vein, Percutaneous Approach (ICD-10-PCS; 2021-02-08)
PROC: 3E03329 Introduction of Other Anti-infective into Peripheral Vein, Percutaneous Approach (ICD-10-PCS; 2021-02-08)
PROC: 3E033NZ Introduction of Analgesics, Hypnotics, Sedatives into Peripheral Vein, Percutaneous Approach (ICD-10-PCS; 2021-02-08)
PROC: 3E023GC Introduction of Other Therapeutic Substance into Muscle, Percutaneous Approach (ICD-10-PCS; 2021-02-08)
DX: M70.22 Olecranon bursitis, left elbow (principal); F19.20 Other psychoactive substance dependence, uncomplicated; F10.10 Alcohol abuse, uncomplicated; S50.319A Abrasion of unspecified elbow, initial encounter; W18.39XA Other fall on same level, initial encounter; Y93.89 Activity, other specified; Y92.238 Other place in hospital as the place of occurrence of the external cause; D64.9 Anemia, unspecified; Z99.3 Dependence on wheelchair; Z29.9 Encounter for prophylactic measures, unspecified; K21.9 Gastro-esophageal reflux disease without esophagitis; B19.20 Unspecified viral hepatitis C without hepatic coma; S50.01XA Contusion of right elbow, initial encounter; S14.159A Other incomplete lesion at unspecified level of cervical spinal cord, initial encounter; G82.50 Quadriplegia, unspecified; R56.9 Unspecified convulsions; Z88.8 Allergy status to other drugs, medicaments and biological substances; F31.9 Bipolar disorder, unspecified; F17.210 Nicotine dependence, cigarettes, uncomplicated
CPT/HCPCS: 36415; 36569; 70450-TC; 72125-TC; 73030-TC-LT-FY; 73070-TC-LT-FY; 73070-TC-RT-FY; 73523-TC-FY; 80048; 80053; 81003; 83735; 84100; 85025; 85027; 85045; 87070; 87075; 87086; 87186; 87205; 93005; 93010; 93971; 96361; 96365; 96367; 96372; 96375; 97116-GP; 97162-GP; 99285-25; C9803; G0378; J0131; U0003; U0005

== ENCOUNTER 2021-12-23 22:34 | Inpatient (IN) | payer OTHER ==
[2021-12-23] MEDS ORDERED: CEFTRIAXONE 1 GM in DEXTROSE 5%-WATER - 100 ML IVPB ONE (23:30)
[2021-12-23] MEDS ORDERED: VANCOMYCIN 1 GM in D5W (PRE-DOCKED) 1,000 MG/250 ML IVPB ONE (23:31)
[2021-12-23] MEDS ORDERED: CEFTRIAXONE 1 GM/50 ML BAG ONE (23:41)
[2021-12-23] MEDS ORDERED: VANCOMYCIN/WATER FOR INJ (PEG) 1,000 MG/200 ML BAG IVPB ONE ×2 (23:43→23:45)
[2021-12-24 01:07] LABS: BASO % 0.8 % (0-2.0); EOS % 8.4 % (0-4.5); HEMATOCRIT 30.1 % (35.4-49); HEMOGLOBIN 10.6 GM/dL (11.7-16.9); LYMPH % 41.6 % (8-40); MCH 33.7 pg (25.7-33.7); MCHC 35.1 g/dl (32.0-35.9); MEAN PLT VOLUME 7.9 fl (7.5-11.1); MONO % 7.6 % (3.8-10.2); NEUT % 41.6 % (42.8-82.8); PLATELET COUNT 223 10^3/uL (134-434); RBC 3.13 M/mm3 (4.00-5.60); RDW 14.4 % (11.9-15.9)
[2021-12-24 01:36] LABS: ALBUMIN 2.9 g/dl (3.4-5.0); CALCIUM 8.2 mg/dL (8.5-10.1)
[2021-12-24 01:37] LABS: BLOOD UREA NITROGEN 7.5 mg/dL (7-18)
[2021-12-24 01:39] LABS: CREATININE 0.6 mg/dL (0.55-1.3)
[2021-12-24 01:40] LABS: PHOSPHOROUS 2.8 mg/dL (2.5-4.9)
[2021-12-24 01:41] LABS: BILIRUBIN,TOTAL 0.3 mg/dL (0.2-1)
[2021-12-24 04:49] VITALS: RESP 18
[2021-12-24] MEDS ORDERED: methaDONE HCL 10 MG TABLET (FOR DETOX USE ONLY) PO ONE (05:36)
[2021-12-24] MEDS ORDERED: methaDONE HCL 10 MG TABLET ONE (07:06)
[2021-12-24] MEDS ORDERED: methaDONE HCL 40 MG DISPERSABLE TABLET ONE (07:06)
[2021-12-24] MEDS: methaDONE 80 MG, methaDONE 20 MG PO SCH (07:10)
[2021-12-24 08:58] LABS: HEMATOCRIT 29.5 % (35.4-49); HEMOGLOBIN 10.5 GM/dL (11.7-16.9); MCH 33.9 pg (25.7-33.7); MCHC 35.5 g/dl (32.0-35.9); MEAN CELL VOLUME 95.6 fl (80-96); MEAN PLT VOLUME 7.5 fl (7.5-11.1); PLATELET COUNT 196 10^3/uL (134-434); RBC 3.09 M/mm3 (4.00-5.60); RDW 14.3 % (11.9-15.9); WHITE BLOOD COUNT 4.7 K/mm3 (4.0-10.0)
[2021-12-24] MEDS ORDERED: DEXTROSE 5%-WATER - 50 ML IVPB ONE ×2 (09:08→16:39)
[2021-12-24] MEDS ORDERED: cefTRIAXone SODIUM 1 GM VIAL ONE (09:08)
[2021-12-24] MEDS: ENOXAPARIN NA (PORCINE) 40 MG/0.4 ML DISP.SYRIN SQ SCH (09:19)
[2021-12-24] MEDS: BACLOFEN 10 MG TABLET (FP) PO SCH ×2 (09:19→21:47)
[2021-12-24] MEDS: DOCUSATE SODIUM 100 MG CAPSULE (FP) PO SCH (09:19)
[2021-12-24] MEDS: PANTOPRAZOLE 20 MG TABLET PO SCH (09:19)
[2021-12-24] MEDS: THIAMINE HCL 100 MG TABLET (FP) PO SCH (09:20)
[2021-12-24 09:26] LABS: ALBUMIN 2.9 g/dl (3.4-5.0); BLOOD UREA NITROGEN 5.9 mg/dL (7-18); CALCIUM 8.1 mg/dL (8.5-10.1); MAGNESIUM 2.4 mg/dL (1.8-2.4)
[2021-12-24 09:29] LABS: CREATININE 0.5 mg/dL (0.55-1.3); PHOSPHOROUS 3.5 mg/dL (2.5-4.9)
[2021-12-24 09:31] LABS: BILIRUBIN,TOTAL 0.3 mg/dL (0.2-1); TOT PROT 6.3 g/dl (6.4-8.2)
[2021-12-24] MEDS: FLUoxetine HCL 20 MG CAPSULE PO SCH (09:34)
[2021-12-24 09:37] LABS: PHENCYCLIDINE,URINE NEGATIVE (NEGATIVE); URINE AMPHETAMINES NEGATIVE (NEGATIVE); URINE BENZODIAZEPINES NEGATIVE (NEGATIVE)
[2021-12-24 09:38] LABS: OPIATES, URI NEGATIVE (NEGATIVE); URINE BARBITURATES NEGATIVE (NEGATIVE)
[2021-12-24 09:39] LABS: COCAINE, UR POSITIVE (NEGATIVE); METHADONE, UR POSITIVE (NEGATIVE)
[2021-12-24] MEDS ORDERED: VANCOMYCIN/WATER FOR INJ (PEG) 1,000 MG/200 ML BAG IVPB ONE (10:00)
[2021-12-24] MEDS ORDERED: VANCOMYCIN 1 GM in D5W (PRE-DOCKED) 1,000 MG/250 ML IVPB ONE (10:00)
[2021-12-24] MEDS ORDERED: CEFTRIAXONE 1 GM in DEXTROSE 5%-WATER - 50 ML IVPB SCH (10:00)
[2021-12-24] MEDS ORDERED: ACAMPROSATE CALCIUM 333 MG TABLET.DR PO SCH (10:00)
[2021-12-24] MEDS ORDERED: ACETAMINOPHEN 325 MG TABLET (FP) PO PRN (15:38)
[2021-12-24] MEDS ORDERED: ceFAZolin SODIUM 1 GM VIAL ONE (16:39)
[2021-12-24] MEDS: ACAMPROSATE CALCIUM 333 MG TABLET.DR PO SCH ×2 (17:31→21:47)
[2021-12-24] MEDS: CEFAZOLIN 1 GM in DEXTROSE 5%-WATER - 1 GM/50 ML IVPB IVPB SCH (17:32)
[2021-12-24] MEDS: GABAPENTIN 300 MG CAPSULE PO SCH ×2 (17:32→21:47)
[2021-12-24] MEDS ORDERED: POTASSIUM CHLORIDE TABS 20 MEQ TABLET.ER (FP) PO ONE (17:43)
[2021-12-24 22:10] LABS: URINE APPEARANCE CLEAR; URINE BILIRUBIN NEGATIVE (NEGATIVE); URINE COLOR YELLOW; URINE GLUCOSE (UA) NEGATIVE (NEGATIVE); URINE KETONE NEGATIVE (NEGATIVE); URINE LEUK ESTERASE NEGATIVE (NEGATIVE); URINE NITRITE NEGATIVE (NEGATIVE); URINE PROTEIN NEGATIVE (NEGATIVE); URINE UROBILINOGEN 0.2 mg/dL (0.2-1.0)
[2021-12-25] MEDS ORDERED: DEXTROSE 5%-WATER - 50 ML IVPB ONE ×2 (00:59→10:38)
[2021-12-25] MEDS ORDERED: ceFAZolin SODIUM 1 GM VIAL ONE ×2 (00:59→10:37)
[2021-12-25] MEDS: CEFAZOLIN 1 GM in DEXTROSE 5%-WATER - 1 GM/50 ML IVPB IVPB SCH ×3 (01:04→17:15)
[2021-12-25] MEDS ORDERED: methaDONE HCL 10 MG TABLET ONE (06:06)
[2021-12-25] MEDS ORDERED: methaDONE HCL 40 MG DISPERSABLE TABLET ONE (06:06)
[2021-12-25] MEDS: GABAPENTIN 300 MG CAPSULE PO SCH ×3 (06:11→22:01)
[2021-12-25] MEDS: methaDONE 80 MG, methaDONE 20 MG PO SCH (06:11)
[2021-12-25] MEDS: ACAMPROSATE CALCIUM 333 MG TABLET.DR PO SCH ×3 (06:11→22:01)
[2021-12-25] MEDS: ENOXAPARIN NA (PORCINE) 40 MG/0.4 ML DISP.SYRIN SQ SCH (10:39)
[2021-12-25] MEDS: BACLOFEN 10 MG TABLET (FP) PO SCH ×2 (10:39→22:01)
[2021-12-25] MEDS: PANTOPRAZOLE 20 MG TABLET PO SCH (10:39)
[2021-12-25] MEDS: THIAMINE HCL 100 MG TABLET (FP) PO SCH (10:40)
[2021-12-25] MEDS: DOCUSATE SODIUM 100 MG CAPSULE (FP) PO SCH (10:40)
[2021-12-25] MEDS: FLUoxetine HCL 20 MG CAPSULE PO SCH (10:43)
[2021-12-25 11:33] LABS: TOTAL IRON BINDING CAPACITY 244 ug/dL (250-450)
[2021-12-25 11:35] LABS: LDH 184 U/L (87-246)
[2021-12-25] MEDS: COLLAGENASE CLOSTRIDIUM HIST. 30 GRAMS TUBE TP SCH (16:07)
[2021-12-26] MEDS: CEFAZOLIN 1 GM in DEXTROSE 5%-WATER - 1 GM/50 ML IVPB IVPB SCH ×3 (02:05→17:15)
[2021-12-26] MEDS: GABAPENTIN 300 MG CAPSULE PO SCH ×3 (06:13→22:14)
[2021-12-26] MEDS: ACAMPROSATE CALCIUM 333 MG TABLET.DR PO SCH ×3 (06:13→22:14)
[2021-12-26] MEDS: methaDONE 80 MG, methaDONE 20 MG PO SCH (06:15)
[2021-12-26] MEDS: ENOXAPARIN NA (PORCINE) 40 MG/0.4 ML DISP.SYRIN SQ SCH (09:12)
[2021-12-26] MEDS: BACLOFEN 10 MG TABLET (FP) PO SCH ×2 (09:13→22:14)
[2021-12-26] MEDS: FLUoxetine HCL 20 MG CAPSULE PO SCH (09:13)
[2021-12-26] MEDS: PANTOPRAZOLE 20 MG TABLET PO SCH (09:13)
[2021-12-26] MEDS: DOCUSATE SODIUM 100 MG CAPSULE (FP) PO SCH (09:13)
[2021-12-26] MEDS: THIAMINE HCL 100 MG TABLET (FP) PO SCH (09:13)
[2021-12-26] MEDS: COLLAGENASE CLOSTRIDIUM HIST. 30 GRAMS TUBE TP SCH (10:34)
[2021-12-26 11:53] LABS: BASO % 0.7 % (0-2.0); EOS % 18.2 % (0-4.5); HEMATOCRIT 31.9 % (35.4-49); HEMOGLOBIN 11.5 GM/dL (11.7-16.9); LYMPH % 26.4 % (8-40); MCH 34.1 pg (25.7-33.7); MEAN CELL VOLUME 94.6 fl (80-96); MEAN PLT VOLUME 7.8 fl (7.5-11.1); MONO % 7.2 % (3.8-10.2); NEUT % 47.5 % (42.8-82.8); PLATELET COUNT 212 10^3/uL (134-434); RBC 3.37 M/mm3 (4.00-5.60); RDW 14.2 % (11.9-15.9); WHITE BLOOD COUNT 4.5 K/mm3 (4.0-10.0)
[2021-12-26 12:16] LABS: CHLORIDE 104 mmol/L (98-107); SODIUM 139 mmol/L (136-145)
[2021-12-26 12:20] LABS: ALBUMIN 2.7 g/dl (3.4-5.0); ANION GAP 7 MMOL/L (8-16); BLOOD UREA NITROGEN 8.6 mg/dL (7-18); CALCIUM 8.6 mg/dL (8.5-10.1); CO2 29 mmol/L (21-32); GLUCOSE,RANDOM 134 mg/dL (74-106)
[2021-12-26 12:23] LABS: CREATININE 0.6 mg/dL (0.55-1.3); SGOT/AST 15 U/L (15-37)
[2021-12-26 12:25] LABS: BILIRUBIN,TOTAL 0.2 mg/dL (0.2-1); TOT PROT 6.5 g/dl (6.4-8.2)
[2021-12-26 12:26] LABS: ALK PHOS 82 U/L (45-117)
[2021-12-26 12:37] LABS: SGPT/ALT < 6 U/L (13-61)
[2021-12-26] MEDS ORDERED: AMMONIUM LACTATE 12% LOTION 225 GM BOTTLE TP PRN (15:07)
[2021-12-26 16:04] VITALS: BMI 19.5
[2021-12-26] MEDS: BACITRACIN 15 GM TUBE TOPICAL OINTMENT TP SCH (22:33)
[2021-12-27] MEDS: CEFAZOLIN 1 GM in DEXTROSE 5%-WATER - 1 GM/50 ML IVPB IVPB SCH ×2 (01:46→11:14)
[2021-12-27] MEDS: methaDONE 80 MG, methaDONE 20 MG PO SCH (05:49)
[2021-12-27] MEDS: GABAPENTIN 300 MG CAPSULE PO SCH ×3 (05:50→21:59)
[2021-12-27] MEDS: ACAMPROSATE CALCIUM 333 MG TABLET.DR PO SCH ×3 (05:50→21:59)
[2021-12-27 09:15] LABS: BASO % 0.9 % (0-2.0); EOS % 17.3 % (0-4.5); HEMATOCRIT 34.8 % (35.4-49); HEMOGLOBIN 12.3 GM/dL (11.7-16.9); LYMPH % 27.4 % (8-40); MCH 33.8 pg (25.7-33.7); MCHC 35.5 g/dl (32.0-35.9); MEAN CELL VOLUME 95.4 fl (80-96); MEAN PLT VOLUME 8.1 fl (7.5-11.1); MONO % 6.7 % (3.8-10.2); NEUT % 47.7 % (42.8-82.8); PLATELET COUNT 221 10^3/uL (134-434); RBC 3.65 M/mm3 (4.00-5.60); RDW 13.8 % (11.9-15.9); WHITE BLOOD COUNT 5.1 K/mm3 (4.0-10.0)
[2021-12-27 09:40] LABS: ALBUMIN 2.9 g/dl (3.4-5.0); BLOOD UREA NITROGEN 16.4 mg/dL (7-18)
[2021-12-27 09:43] LABS: CREATININE 0.6 mg/dL (0.55-1.3)
[2021-12-27 09:44] LABS: TOT PROT 6.9 g/dl (6.4-8.2)
[2021-12-27 09:45] LABS: BILIRUBIN,TOTAL 0.2 mg/dL (0.2-1)
[2021-12-27] MEDS: DOCUSATE SODIUM 100 MG CAPSULE (FP) PO SCH (11:14)
[2021-12-27] MEDS: PANTOPRAZOLE 20 MG TABLET PO SCH (11:15)
[2021-12-27] MEDS: BACLOFEN 10 MG TABLET (FP) PO SCH ×2 (11:15→21:59)
[2021-12-27] MEDS: FLUoxetine HCL 20 MG CAPSULE PO SCH (11:15)
[2021-12-27] MEDS: ENOXAPARIN NA (PORCINE) 40 MG/0.4 ML DISP.SYRIN SQ SCH (11:15)
[2021-12-27] MEDS: THIAMINE HCL 100 MG TABLET (FP) PO SCH (11:16)
[2021-12-27] MEDS: BACITRACIN 15 GM TUBE TOPICAL OINTMENT TP SCH ×2 (11:17→22:00)
[2021-12-27] MEDS: AMOX TR/POT CLAV 500MG/125MG TABLETS (FP) PO SCH (19:45)
[2021-12-27] MEDS ORDERED: MELATONIN 5 MG TABLETS PO PRN (21:07)
[2021-12-27 23:57] LABS: COCAINE, UR NEGATIVE (NEGATIVE); OPIATES, URI NEGATIVE (NEGATIVE); URINE AMPHETAMINES NEGATIVE (NEGATIVE); URINE BARBITURATES NEGATIVE (NEGATIVE)
[2021-12-27 23:58] LABS: PHENCYCLIDINE,URINE NEGATIVE (NEGATIVE); URINE BENZODIAZEPINES NEGATIVE (NEGATIVE)
[2021-12-28 00:01] LABS: METHADONE, UR POSITIVE (NEGATIVE)
[2021-12-28] MEDS: methaDONE 80 MG, methaDONE 20 MG PO SCH (06:06)
[2021-12-28] MEDS: ACAMPROSATE CALCIUM 333 MG TABLET.DR PO SCH ×3 (06:06→21:29)
[2021-12-28] MEDS: GABAPENTIN 300 MG CAPSULE PO SCH ×3 (06:06→21:29)
[2021-12-28] MEDS: THIAMINE HCL 100 MG TABLET (FP) PO SCH (10:00)
[2021-12-28] MEDS: BACLOFEN 10 MG TABLET (FP) PO SCH (10:00)
[2021-12-28] MEDS: ENOXAPARIN NA (PORCINE) 40 MG/0.4 ML DISP.SYRIN SQ SCH (10:00)
[2021-12-28] MEDS: AMOX TR/POT CLAV 500MG/125MG TABLETS (FP) PO SCH ×2 (10:00→17:04)
[2021-12-28] MEDS: PANTOPRAZOLE 20 MG TABLET PO SCH (10:00)
[2021-12-28] MEDS: BACITRACIN 15 GM TUBE TOPICAL OINTMENT TP SCH ×2 (10:01→21:30)
[2021-12-28] MEDS: DOCUSATE SODIUM 100 MG CAPSULE (FP) PO SCH (10:01)
[2021-12-28] MEDS: FLUoxetine HCL 20 MG CAPSULE PO SCH (10:03)
[2021-12-28 12:05] LABS: BASO % 0.8 % (0-2.0); EOS % 18.4 % (0-4.5); HEMATOCRIT 33.3 % (35.4-49); HEMOGLOBIN 11.8 GM/dL (11.7-16.9); LYMPH % 31.9 % (8-40); MCH 33.6 pg (25.7-33.7); MCHC 35.4 g/dl (32.0-35.9); MEAN CELL VOLUME 94.8 fl (80-96); MEAN PLT VOLUME 7.9 fl (7.5-11.1); MONO % 8.5 % (3.8-10.2); NEUT % 40.4 % (42.8-82.8); PLATELET COUNT 215 10^3/uL (134-434); RBC 3.51 M/mm3 (4.00-5.60); WHITE BLOOD COUNT 4.7 K/mm3 (4.0-10.0)
[2021-12-28 12:28] LABS: CALCIUM 9.4 mg/dL (8.5-10.1)
[2021-12-28 12:30] LABS: MAGNESIUM 2.1 mg/dL (1.8-2.4)
[2021-12-28 12:31] LABS: CREATININE 0.6 mg/dL (0.55-1.3)
[2021-12-28 12:33] LABS: BILIRUBIN,TOTAL 0.4 mg/dL (0.2-1); TOT PROT 6.9 g/dl (6.4-8.2)
[2021-12-28] MEDS ORDERED: SODIUM CHLORIDE 500 ML IV STA (13:51)
[2021-12-28] MEDS: SODIUM CHLORIDE 1,000 ML IV SCH (16:19)
[2021-12-28] MEDS: levETIRAcetam 500 MG TABLET (FP) PO SCH ×2 (17:04→21:29)
[2021-12-29] MEDS: SODIUM CHLORIDE 1,000 ML IV SCH (07:09)
[2021-12-29] MEDS: GABAPENTIN 300 MG CAPSULE PO SCH (07:11)
[2021-12-29] MEDS: methaDONE 80 MG, methaDONE 20 MG PO SCH (07:11)
[2021-12-29] MEDS: ACAMPROSATE CALCIUM 333 MG TABLET.DR PO SCH (07:11)
[2021-12-29 07:14] VITALS: PULSE 61; TEMP 97.7
[2021-12-29 07:37] VITALS: BP 133/75
[2021-12-29] MEDS: AMOX TR/POT CLAV 500MG/125MG TABLETS (FP) PO SCH (08:40)
[2021-12-29] MEDS: levETIRAcetam 500 MG TABLET (FP) PO SCH (09:46)
[2021-12-29] MEDS: THIAMINE HCL 100 MG TABLET (FP) PO SCH (09:46)
[2021-12-29] MEDS: ENOXAPARIN NA (PORCINE) 40 MG/0.4 ML DISP.SYRIN SQ SCH (09:47)
[2021-12-29] MEDS: DOCUSATE SODIUM 100 MG CAPSULE (FP) PO SCH (09:47)
[2021-12-29] MEDS: BACITRACIN 15 GM TUBE TOPICAL OINTMENT TP SCH (09:47)
[2021-12-29] MEDS: PANTOPRAZOLE 20 MG TABLET PO SCH (09:47)
[2021-12-29] MEDS: FLUoxetine HCL 20 MG CAPSULE PO SCH (09:47)
== END 2021-12-29 12:27 | disposition home or self-care (01) | DRG 383 ==
LOC: JER 22:34 → JERBED 12-24 02:55 → OBSVTOIN 12-24 03:33 → J5S 12-24 05:11
PROVIDERS: ADMIT Internal Medicine; ATTEND Nurse Practitioner Family
DX: L03.115 Cellulitis of right lower limb (principal); K21.9 Gastro-esophageal reflux disease without esophagitis; F10.10 Alcohol abuse, uncomplicated; F14.10 Cocaine abuse, uncomplicated; B19.20 Unspecified viral hepatitis C without hepatic coma; L03.116 Cellulitis of left lower limb; F31.9 Bipolar disorder, unspecified; F11.20 Opioid dependence, uncomplicated; D64.9 Anemia, unspecified; G40.909 Epilepsy, unspecified, not intractable, without status epilepticus; G82.54 Quadriplegia, C5-C7 incomplete; F17.210 Nicotine dependence, cigarettes, uncomplicated
CPT/HCPCS: 36415; 70450-TC; 73560-TC-LT-FY; 80053; 80307; 81003; 82728; 82746; 83550; 83615; 83735; 84100; 85025; 85027; 85045; 87040; 93005; 93010; 93970-TC; 97116-GP; 97162-GP; 99285-25; C9803-CS; G0378; J0475; U0003; U0005

== ENCOUNTER 2022-03-16 17:29 | Inpatient (IN) | payer OTHER ==
[2022-03-16 18:23] VITALS: BMI 17.4
[2022-03-16] MEDS ORDERED: BISMUTH SUBSALICYLATE 524 MG/30 ML PO PRN (19:24)
[2022-03-16] MEDS ORDERED: BENZOCAINE/MENTHOL (CHLORASEPTIC ) LOZENGE MM PRN (19:24)
[2022-03-16] MEDS ORDERED: IBUPROFEN 600 MG TABLET (FP) PO PRN (19:24)
[2022-03-16] MEDS ORDERED: MAGNESIUM CITRATE 300 ML BOTTLE PO PRN (19:24)
[2022-03-16] MEDS ORDERED: DICYCLOMINE HCL 10 MG CAPSULE PO PRN (19:24)
[2022-03-16] MEDS ORDERED: ACETAMINOPHEN 325 MG TABLET (FP) PO PRN ×2 (19:24)
[2022-03-16] MEDS ORDERED: hydrOXYzine PAMOATE 25 MG CAPSULE (FP) PO PRN (19:24)
[2022-03-16] MEDS ORDERED: LOPERAMIDE HCL 2 MG CAPSULE PO PRN (19:24)
[2022-03-16] MEDS ORDERED: ONDANSETRON *ODT* 4 MG TABLET SL PRN (19:24)
[2022-03-16] MEDS ORDERED: IBUPROFEN 400 MG TABLET (FP) PO PRN (19:24)
[2022-03-16] MEDS ORDERED: NALOXONE HCL (KLOXXADO) 8 MG SPRAY NS PRN (19:24)
[2022-03-16] MEDS ORDERED: chlordiazePOXIDE HCL 25 MG CAPSULE PO PRN (19:24)
[2022-03-16] MEDS ORDERED: MAGNESIUM HYDROX 2400MG/30ML ORAL SUSPENSION 30 ML CUP PO PRN (19:24)
[2022-03-16] MEDS ORDERED: METHOCARBAMOL 500 MG TABLET PO PRN (19:24)
[2022-03-16] MEDS ORDERED: MAG HYDROX/AL HYDROX/SIMETH 30 ML UNIT-DOSE CUP PO PRN (19:24)
[2022-03-16] MEDS: THIAMINE HCL 100 MG TABLET (FP) PO SCH (22:50)
[2022-03-16] MEDS: MELATONIN 5 MG TABLETS PO SCH (22:50)
[2022-03-16] MEDS: chlordiazePOXIDE HCL 25 MG CAPSULE PO SCH (23:29)
[2022-03-17] MEDS: chlordiazePOXIDE HCL 25 MG CAPSULE PO SCH ×4 (06:03→22:58)
[2022-03-17] MEDS ORDERED: FLU VACC QS2022-23(6MOS UP)/PF 60 MCG/0.5 ML SYRINGE IM ONE (11:00)
[2022-03-17] MEDS: PRENATAL VITAMINS W/ FOLIC ACID TABLET (FP) PO SCH (11:04)
[2022-03-17] MEDS: FLUoxetine HCL 20 MG CAPSULE PO SCH (11:04)
[2022-03-17] MEDS: NICOTINE 21 MG/24 HOURS TOPICAL PATCH TD SCH (11:11)
[2022-03-17 12:12] LABS: BLOOD UREA NITROGEN 14.3 mg/dL (7-18)
[2022-03-17 12:15] LABS: CREATININE 0.6 mg/dL (0.55-1.3)
[2022-03-17 12:18] LABS: BILIRUBIN,TOTAL 0.4 mg/dL (0.2-1); TOT PROT 6.7 g/dl (6.4-8.2)
[2022-03-17 12:30] LABS: HEMATOCRIT 33.5 % (35.4-49); HEMOGLOBIN 11.4 GM/dL (11.7-16.9); MCHC 34.2 g/dl (32.0-35.9); MEAN CELL VOLUME 96.6 fl (80-96); MEAN PLT VOLUME 8.8 fl (7.5-11.1); PLATELET COUNT 180 10^3/uL (134-434); RBC 3.46 M/mm3 (4.00-5.60); WHITE BLOOD COUNT 3.6 K/mm3 (4.0-10.0)
[2022-03-17] MEDS ORDERED: methaDONE HCL 10 MG TABLET PO ONE (13:35)
[2022-03-17] MEDS: levETIRAcetam 500 MG TABLET (FP) PO SCH (20:28)
[2022-03-17] MEDS: MELATONIN 5 MG TABLETS PO SCH (22:57)
[2022-03-17] MEDS: THIAMINE HCL 100 MG TABLET (FP) PO SCH (22:58)
[2022-03-18] MEDS ORDERED: methaDONE HCL 40 MG DISPERSABLE TABLET PO SCH (06:00)
[2022-03-18] MEDS: chlordiazePOXIDE HCL 25 MG CAPSULE PO SCH ×4 (06:07→22:24)
[2022-03-18] MEDS: levETIRAcetam 500 MG TABLET (FP) PO SCH ×2 (07:58→21:00)
[2022-03-18] MEDS: PRENATAL VITAMINS W/ FOLIC ACID TABLET (FP) PO SCH (10:36)
[2022-03-18] MEDS: NICOTINE 21 MG/24 HOURS TOPICAL PATCH TD SCH (10:37)
[2022-03-18] MEDS: PANTOPRAZOLE 20 MG TABLET PO SCH (10:37)
[2022-03-18] MEDS: FLUoxetine HCL 20 MG CAPSULE PO SCH (10:37)
[2022-03-18] MEDS ORDERED: FLU VACC QS2022-23(6MOS UP)/PF 60 MCG/0.5 ML SYRINGE IM ONE (13:32)
[2022-03-18] MEDS: THIAMINE HCL 100 MG TABLET (FP) PO SCH (22:24)
[2022-03-18] MEDS: MELATONIN 5 MG TABLETS PO SCH (22:24)
[2022-03-19] MEDS ORDERED: chlordiazePOXIDE HCL 10 MG CAPSULE PO PRN
[2022-03-19] MEDS: chlordiazePOXIDE HCL 10 MG CAPSULE PO SCH ×4 (05:58→23:07)
[2022-03-19] MEDS: levETIRAcetam 500 MG TABLET (FP) PO SCH ×2 (07:39→20:15)
[2022-03-19] MEDS: PANTOPRAZOLE 20 MG TABLET PO SCH (10:28)
[2022-03-19] MEDS: PRENATAL VITAMINS W/ FOLIC ACID TABLET (FP) PO SCH (10:28)
[2022-03-19] MEDS: NICOTINE 21 MG/24 HOURS TOPICAL PATCH TD SCH (10:28)
[2022-03-19] MEDS: FLUoxetine HCL 20 MG CAPSULE PO SCH (10:29)
[2022-03-19] MEDS: CEPHALEXIN MONOHYDRATE 500 MG CAPSULE (UD) PO SCH ×3 (11:58→23:07)
[2022-03-19] MEDS: THIAMINE HCL 100 MG TABLET (FP) PO SCH (22:32)
[2022-03-19] MEDS: MELATONIN 5 MG TABLETS PO SCH (22:32)
[2022-03-20] MEDS: chlordiazePOXIDE HCL 10 MG CAPSULE PO SCH ×2 (05:53→18:17)
[2022-03-20] MEDS: CEPHALEXIN MONOHYDRATE 500 MG CAPSULE (UD) PO SCH ×4 (05:53→23:17)
[2022-03-20] MEDS: levETIRAcetam 500 MG TABLET (FP) PO SCH ×2 (07:11→21:15)
[2022-03-20] MEDS: FLUoxetine HCL 20 MG CAPSULE PO SCH (10:11)
[2022-03-20] MEDS: PANTOPRAZOLE 20 MG TABLET PO SCH (10:11)
[2022-03-20] MEDS: PRENATAL VITAMINS W/ FOLIC ACID TABLET (FP) PO SCH (10:11)
[2022-03-20] MEDS: NICOTINE 21 MG/24 HOURS TOPICAL PATCH TD SCH (10:12)
[2022-03-20] MEDS: THIAMINE HCL 100 MG TABLET (FP) PO SCH (22:47)
[2022-03-20] MEDS: MELATONIN 5 MG TABLETS PO SCH (22:47)
[2022-03-21] MEDS ORDERED: chlordiazePOXIDE HCL 10 MG CAPSULE PO ONE (05:00)
[2022-03-21] MEDS: CEPHALEXIN MONOHYDRATE 500 MG CAPSULE (UD) PO SCH ×2 (06:02→13:50)
[2022-03-21] MEDS: levETIRAcetam 500 MG TABLET (FP) PO SCH (07:17)
[2022-03-21 09:26] VITALS: BP 98/58; PULSE 72; RESP 16; TEMP 97.3
[2022-03-21] MEDS: NICOTINE 21 MG/24 HOURS TOPICAL PATCH TD SCH (09:52)
[2022-03-21] MEDS: PANTOPRAZOLE 20 MG TABLET PO SCH (09:52)
[2022-03-21] MEDS: FLUoxetine HCL 20 MG CAPSULE PO SCH (09:52)
[2022-03-21] MEDS: PRENATAL VITAMINS W/ FOLIC ACID TABLET (FP) PO SCH (09:52)
== END 2022-03-21 14:05 | disposition home or self-care (01) | DRG 773 ==
LOC: YASAS 17:29 → Y3N 20:55
PROVIDERS: ADMIT Allergy & Immunology; ATTEND Surgery
PROC: HZ2ZZZZ Detoxification Services for Substance Abuse Treatment (ICD-10-PCS; principal; 2022-03-16)
DX: F10.230 Alcohol dependence with withdrawal, uncomplicated (principal); F11.20 Opioid dependence, uncomplicated; F14.20 Cocaine dependence, uncomplicated; F12.20 Cannabis dependence, uncomplicated; F17.210 Nicotine dependence, cigarettes, uncomplicated; F39 Unspecified mood [affective] disorder; F32.A Depression, unspecified; L03.115 Cellulitis of right lower limb; R53.2 Functional quadriplegia; Z99.89 Dependence on other enabling machines and devices; Z86.19 Personal history of other infectious and parasitic diseases; Z88.8 Allergy status to other drugs, medicaments and biological substances
CPT/HCPCS: 36415; 80053; 85027; 86780; 87811; C9803-CS; G0008; Q2036; U0003; U0005

== ENCOUNTER 2022-03-22 19:37 | Inpatient (IN) | payer OTHER ==
[2022-03-22] MEDS ORDERED: VANCOMYCIN 1 GM in D5W (PRE-DOCKED) 1,000 MG/250 ML IVPB ONE (20:22)
[2022-03-22] MEDS ORDERED: ACETAMINOPHEN 325 MG TABLET (FP) PO ONE (20:22)
[2022-03-22] MEDS ORDERED: PIPERACILLIN/TAZOB 4.5 GM 4.5 GM in DEXTROSE 5%-WATER 100 ML IVPB ONE (21:49)
[2022-03-22] MEDS ORDERED: PIPERACILLIN/TAZOB 4.5 GM 4.5 GM/100 ML BAG IVPB ONE (21:56)
[2022-03-22] MEDS ORDERED: ACETAMINOPHEN INJECTION 100 ML IVPB ONE (21:56)
[2022-03-22] MEDS ORDERED: VANCOMYCIN/WATER FOR INJ (PEG) 1,000 MG/200 ML BAG IVPB ONE (21:56)
[2022-03-22 22:47] LABS: BASO % 0.5 % (0-2.0); EOS % 12.9 % (0-4.5); HEMOGLOBIN 11.3 GM/dL (11.7-16.9); LYMPH % 37.9 % (8-40); MCH 34.3 pg (25.7-33.7); MCHC 35.3 g/dl (32.0-35.9); MEAN PLT VOLUME 7.9 fl (7.5-11.1); MONO % 11.3 % (3.8-10.2); NEUT % 37.4 % (42.8-82.8); PLATELET COUNT 160 10^3/uL (134-434); RDW 13.6 % (11.9-15.9); WHITE BLOOD COUNT 3.7 K/mm3 (4.0-10.0)
[2022-03-22 22:59] LABS: ALBUMIN 2.9 g/dl (3.4-5.0); BLOOD UREA NITROGEN 20.6 mg/dL (7-18)
[2022-03-22 23:02] LABS: CREATININE 0.7 mg/dL (0.55-1.3)
[2022-03-22 23:04] LABS: BILIRUBIN,TOTAL 0.2 mg/dL (0.2-1); TOT PROT 6.8 g/dl (6.4-8.2)
[2022-03-22 23:07] LABS: N-TERMINAL BNP 43.8 pg/ml (5-125)
[2022-03-22 23:47] LABS: ERYTHROCYTE SEDIMENTATION RATE 79 mm/hr (0-20)
[2022-03-23] MEDS ORDERED: SODIUM CHLORIDE 1,000 ML IV STA (01:28)
[2022-03-23] MEDS ORDERED: VANCOMYCIN 1 GM in D5W (PRE-DOCKED) 1,000 MG/250 ML IVPB SCH (02:15)
[2022-03-23] MEDS ORDERED: LORazepam 1 MG TABLET PO PRN (02:19)
[2022-03-23] MEDS: SODIUM CHLORIDE 1,000 ML IV SCH ×2 (02:57→11:53)
[2022-03-23] MEDS ORDERED: PIPERACILLIN/TAZOB 3.375 GM 3.375 GM/50 ML BAG IVPB ONE ×2 (04:39→08:27)
[2022-03-23] MEDS: PIPERACILLIN/TAZOB 3.375 GM 3.375 GM in DEXTROSE 5%-WATER - 50 ML IVPB SCH ×3 (04:51→17:15)
[2022-03-23 05:05] LABS: URINE APPEARANCE CLEAR; URINE BILIRUBIN NEGATIVE (NEGATIVE); URINE COLOR YELLOW; URINE GLUCOSE (UA) NEGATIVE (NEGATIVE); URINE KETONE NEGATIVE (NEGATIVE); URINE LEUK ESTERASE NEGATIVE (NEGATIVE); URINE NITRITE NEGATIVE (NEGATIVE); URINE PROTEIN NEGATIVE (NEGATIVE); URINE UROBILINOGEN 0.2 mg/dL (0.2-1.0)
[2022-03-23 05:13] LABS: PHENCYCLIDINE,URINE NEGATIVE (NEGATIVE); URINE AMPHETAMINES NEGATIVE (NEGATIVE); URINE BARBITURATES NEGATIVE (NEGATIVE)
[2022-03-23 05:14] LABS: OPIATES, URI NEGATIVE (NEGATIVE)
[2022-03-23 05:17] LABS: COCAINE, UR POSITIVE (NEGATIVE); METHADONE, UR POSITIVE (NEGATIVE); URINE BENZODIAZEPINES POSITIVE (NEGATIVE)
[2022-03-23] MEDS ORDERED: LORazepam 1 MG TABLET ONE ×2 (05:35→08:27)
[2022-03-23] MEDS: LORazepam 1 MG TABLET PO SCH ×4 (05:39→22:36)
[2022-03-23] MEDS ORDERED: PIPERACILLIN/TAZOB 3.375 GM 3.375 GM in DEXTROSE 5%-WATER - 50 ML IVPB SCH (06:00)
[2022-03-23] MEDS ORDERED: FOLIC ACID 1 MG TABLET (FP) ONE (08:26)
[2022-03-23] MEDS ORDERED: ENOXAPARIN NA (PORCINE) 40 MG/0.4 ML DISP.SYRIN SQ ONE (08:27)
[2022-03-23] MEDS ORDERED: VANCOMYCIN/WATER FOR INJ (PEG) 1,000 MG/200 ML BAG IVPB ONE (08:27)
[2022-03-23] MEDS ORDERED: THIAMINE HCL 100 MG TABLET (FP) ONE (09:40)
[2022-03-23] MEDS ORDERED: levETIRAcetam 500 MG TABLET (FP) PO ONE (10:07)
[2022-03-23] MEDS: FOLIC ACID 1 MG TABLET (FP) PO SCH (10:18)
[2022-03-23] MEDS: VANCOMYCIN/WATER FOR INJ (PEG) 1,000 MG/200 ML BAG IVPB SCH ×2 (10:18→22:19)
[2022-03-23] MEDS: levETIRAcetam 500 MG TABLET (FP) PO SCH ×2 (10:18→22:18)
[2022-03-23] MEDS: THIAMINE HCL 100 MG TABLET (FP) PO SCH (10:18)
[2022-03-23] MEDS: ENOXAPARIN NA (PORCINE) 40 MG/0.4 ML DISP.SYRIN SQ SCH (10:18)
[2022-03-23] MEDS ORDERED: methaDONE HCL 10 MG TABLET (FOR DETOX USE ONLY) PO SCH (11:15)
[2022-03-23 14:07] VITALS: BMI 21.2
[2022-03-24] MEDS: PIPERACILLIN/TAZOB 3.375 GM 3.375 GM in DEXTROSE 5%-WATER - 50 ML IVPB SCH ×3 (01:58→17:34)
[2022-03-24] MEDS: SODIUM CHLORIDE 1,000 ML IV SCH ×2 (01:59→15:09)
[2022-03-24] MEDS: LORazepam 1 MG TABLET PO SCH ×4 (05:17→22:07)
[2022-03-24 08:33] LABS: ALBUMIN 2.7 g/dl (3.4-5.0); BLOOD UREA NITROGEN 15.8 mg/dL (7-18); CALCIUM 8.9 mg/dL (8.5-10.1); MAGNESIUM 2.1 mg/dL (1.8-2.4)
[2022-03-24 08:36] LABS: PHOSPHOROUS 3.6 mg/dL (2.5-4.9)
[2022-03-24 08:37] LABS: CREATININE 0.6 mg/dL (0.55-1.3)
[2022-03-24 08:38] LABS: BASO % 0.6 % (0-2.0); BILIRUBIN,TOTAL 0.2 mg/dL (0.2-1); EOS % 12.6 % (0-4.5); HEMATOCRIT 34.4 % (35.4-49); HEMOGLOBIN 11.7 GM/dL (11.7-16.9); LYMPH % 36.9 % (8-40); MCH 32.8 pg (25.7-33.7); MEAN CELL VOLUME 96.4 fl (80-96); MEAN PLT VOLUME 8.2 fl (7.5-11.1); MONO % 9.2 % (3.8-10.2); NEUT % 40.7 % (42.8-82.8); PLATELET COUNT 182 10^3/uL (134-434); RBC 3.57 M/mm3 (4.00-5.60); RDW 13.3 % (11.9-15.9); TOT PROT 6.6 g/dl (6.4-8.2); WHITE BLOOD COUNT 4.8 K/mm3 (4.0-10.0)
[2022-03-24] MEDS: VANCOMYCIN/WATER FOR INJ (PEG) 1,000 MG/200 ML BAG IVPB SCH ×2 (09:20→21:37)
[2022-03-24] MEDS: ENOXAPARIN NA (PORCINE) 40 MG/0.4 ML DISP.SYRIN SQ SCH (09:26)
[2022-03-24] MEDS: levETIRAcetam 500 MG TABLET (FP) PO SCH ×2 (09:26→21:37)
[2022-03-24] MEDS: THIAMINE HCL 100 MG TABLET (FP) PO SCH (09:27)
[2022-03-24] MEDS: FOLIC ACID 1 MG TABLET (FP) PO SCH (09:27)
[2022-03-24] MEDS: COLLAGENASE CLOSTRIDIUM HIST. 30 GRAMS TUBE TP SCH (09:28)
[2022-03-25] MEDS ORDERED: LORazepam 0.5 MG TABLET PO PRN
[2022-03-25] MEDS: PIPERACILLIN/TAZOB 3.375 GM 3.375 GM in DEXTROSE 5%-WATER - 50 ML IVPB SCH ×3 (01:02→18:19)
[2022-03-25] MEDS: SODIUM CHLORIDE 1,000 ML IV SCH ×3 (02:15→05:15)
[2022-03-25] MEDS: LORazepam 0.5 MG TABLET PO SCH ×5 (05:14→22:21)
[2022-03-25 09:17] LABS: BASO % 1.1 % (0-2.0); EOS % 14.7 % (0-4.5); HEMATOCRIT 34.7 % (35.4-49); HEMOGLOBIN 11.9 GM/dL (11.7-16.9); LYMPH % 37.1 % (8-40); MCH 32.9 pg (25.7-33.7); MCHC 34.3 g/dl (32.0-35.9); MEAN PLT VOLUME 7.7 fl (7.5-11.1); MONO % 9.5 % (3.8-10.2); NEUT % 37.6 % (42.8-82.8); PLATELET COUNT 193 10^3/uL (134-434); RBC 3.62 M/mm3 (4.00-5.60); RDW 13.4 % (11.9-15.9); WHITE BLOOD COUNT 4.3 K/mm3 (4.0-10.0)
[2022-03-25 09:45] LABS: BLOOD UREA NITROGEN 16.6 mg/dL (7-18); CALCIUM 8.6 mg/dL (8.5-10.1); MAGNESIUM 1.7 mg/dL (1.8-2.4)
[2022-03-25 09:46] LABS: ALBUMIN 2.7 g/dl (3.4-5.0)
[2022-03-25 09:49] LABS: CREATININE 0.7 mg/dL (0.55-1.3)
[2022-03-25 09:50] LABS: BILIRUBIN,TOTAL 0.7 mg/dL (0.2-1); TOT PROT 6.4 g/dl (6.4-8.2)
[2022-03-25] MEDS: VANCOMYCIN/WATER FOR INJ (PEG) 1,000 MG/200 ML BAG IVPB SCH ×2 (10:24→22:22)
[2022-03-25] MEDS: levETIRAcetam 500 MG TABLET (FP) PO SCH ×2 (10:24→22:21)
[2022-03-25] MEDS: FOLIC ACID 1 MG TABLET (FP) PO SCH (10:24)
[2022-03-25] MEDS: THIAMINE HCL 100 MG TABLET (FP) PO SCH (10:24)
[2022-03-25] MEDS: COLLAGENASE CLOSTRIDIUM HIST. 30 GRAMS TUBE TP SCH (10:31)
[2022-03-25] MEDS: ENOXAPARIN NA (PORCINE) 40 MG/0.4 ML DISP.SYRIN SQ SCH (11:34)
[2022-03-26] MEDS: PIPERACILLIN/TAZOB 3.375 GM 3.375 GM in DEXTROSE 5%-WATER - 50 ML IVPB SCH ×2 (01:49→10:48)
[2022-03-26] MEDS ORDERED: LORazepam 0.5 MG TABLET PO ONE (05:00)
[2022-03-26] MEDS: SODIUM CHLORIDE 1,000 ML IV SCH ×2 (06:45→21:37)
[2022-03-26] MEDS: FOLIC ACID 1 MG TABLET (FP) PO SCH (10:48)
[2022-03-26] MEDS: VANCOMYCIN/WATER FOR INJ (PEG) 1,000 MG/200 ML BAG IVPB SCH ×2 (10:48→21:37)
[2022-03-26] MEDS: THIAMINE HCL 100 MG TABLET (FP) PO SCH (10:48)
[2022-03-26] MEDS: ENOXAPARIN NA (PORCINE) 40 MG/0.4 ML DISP.SYRIN SQ SCH (10:48)
[2022-03-26] MEDS: levETIRAcetam 500 MG TABLET (FP) PO SCH ×2 (10:48→21:37)
[2022-03-26] MEDS: COLLAGENASE CLOSTRIDIUM HIST. 30 GRAMS TUBE TP SCH (10:54)
[2022-03-26 11:58] LABS: BASO % 0.4 % (0-2.0); HEMATOCRIT 31.8 % (35.4-49); LYMPH % 31.2 % (8-40); MCH 33.4 pg (25.7-33.7); MCHC 34.7 g/dl (32.0-35.9); MEAN PLT VOLUME 7.7 fl (7.5-11.1); MONO % 13.7 % (3.8-10.2); NEUT % 40.7 % (42.8-82.8); PLATELET COUNT 187 10^3/uL (134-434); RBC 3.31 M/mm3 (4.00-5.60); RDW 13.4 % (11.9-15.9); WHITE BLOOD COUNT 4.8 K/mm3 (4.0-10.0)
[2022-03-26 12:33] LABS: CALCIUM 8.6 mg/dL (8.5-10.1)
[2022-03-26 12:34] LABS: ALBUMIN 2.6 g/dl (3.4-5.0); BLOOD UREA NITROGEN 13.9 mg/dL (7-18)
[2022-03-26 12:35] LABS: CREATININE 0.5 mg/dL (0.55-1.3)
[2022-03-26 12:36] LABS: BILIRUBIN,TOTAL 0.3 mg/dL (0.2-1); TOT PROT 6.2 g/dl (6.4-8.2)
[2022-03-27] MEDS: SODIUM CHLORIDE 1,000 ML IV SCH ×2 (02:30→21:41)
[2022-03-27 08:22] LABS: BASO % 0.9 % (0-2.0); EOS % 16.9 % (0-4.5); HEMATOCRIT 32.1 % (35.4-49); HEMOGLOBIN 11.3 GM/dL (11.7-16.9); LYMPH % 38.1 % (8-40); MCH 33.5 pg (25.7-33.7); MCHC 35.1 g/dl (32.0-35.9); MEAN CELL VOLUME 95.6 fl (80-96); MEAN PLT VOLUME 7.5 fl (7.5-11.1); MONO % 11.2 % (3.8-10.2); NEUT % 32.9 % (42.8-82.8); PLATELET COUNT 180 10^3/uL (134-434); RBC 3.36 M/mm3 (4.00-5.60); RDW 13.4 % (11.9-15.9); WHITE BLOOD COUNT 4.2 K/mm3 (4.0-10.0)
[2022-03-27 08:51] LABS: CALCIUM 8.7 mg/dL (8.5-10.1)
[2022-03-27 08:52] LABS: ALBUMIN 2.7 g/dl (3.4-5.0); BLOOD UREA NITROGEN 16.1 mg/dL (7-18)
[2022-03-27 08:55] LABS: CREATININE 0.6 mg/dL (0.55-1.3)
[2022-03-27 08:57] LABS: BILIRUBIN,TOTAL 0.4 mg/dL (0.2-1); TOT PROT 6.2 g/dl (6.4-8.2)
[2022-03-27] MEDS: VANCOMYCIN/WATER FOR INJ (PEG) 1,000 MG/200 ML BAG IVPB SCH ×2 (10:38→21:40)
[2022-03-27] MEDS: THIAMINE HCL 100 MG TABLET (FP) PO SCH (10:39)
[2022-03-27] MEDS: ENOXAPARIN NA (PORCINE) 40 MG/0.4 ML DISP.SYRIN SQ SCH (10:39)
[2022-03-27] MEDS: FOLIC ACID 1 MG TABLET (FP) PO SCH (10:39)
[2022-03-27] MEDS: levETIRAcetam 500 MG TABLET (FP) PO SCH ×2 (10:39→21:40)
[2022-03-27] MEDS: COLLAGENASE CLOSTRIDIUM HIST. 30 GRAMS TUBE TP SCH (10:39)
[2022-03-28] MEDS: SODIUM CHLORIDE 1,000 ML IV SCH ×2 (03:43→21:05)
[2022-03-28] MEDS: levETIRAcetam 500 MG TABLET (FP) PO SCH ×2 (09:24→21:46)
[2022-03-28] MEDS: ENOXAPARIN NA (PORCINE) 40 MG/0.4 ML DISP.SYRIN SQ SCH (09:24)
[2022-03-28] MEDS: FOLIC ACID 1 MG TABLET (FP) PO SCH (09:24)
[2022-03-28] MEDS: THIAMINE HCL 100 MG TABLET (FP) PO SCH (09:24)
[2022-03-28] MEDS: VANCOMYCIN/WATER FOR INJ (PEG) 1,000 MG/200 ML BAG IVPB SCH ×2 (09:24→21:47)
[2022-03-28] MEDS: COLLAGENASE CLOSTRIDIUM HIST. 30 GRAMS TUBE TP SCH (09:25)
[2022-03-28 09:34] LABS: BASO % 0.8 % (0-2.0); EOS % 15.2 % (0-4.5); HEMATOCRIT 32.6 % (35.4-49); HEMOGLOBIN 11.3 GM/dL (11.7-16.9); LYMPH % 32.5 % (8-40); MCH 33.3 pg (25.7-33.7); MCHC 34.7 g/dl (32.0-35.9); MEAN PLT VOLUME 7.8 fl (7.5-11.1); MONO % 9.3 % (3.8-10.2); NEUT % 42.2 % (42.8-82.8); PLATELET COUNT 192 10^3/uL (134-434); RBC 3.39 M/mm3 (4.00-5.60); RDW 13.4 % (11.9-15.9)
[2022-03-28 09:52] LABS: BLOOD UREA NITROGEN 18.1 mg/dL (7-18)
[2022-03-28 09:53] LABS: ALBUMIN 2.7 g/dl (3.4-5.0); CALCIUM 8.5 mg/dL (8.5-10.1); MAGNESIUM 1.8 mg/dL (1.8-2.4)
[2022-03-28 09:56] LABS: CREATININE 0.5 mg/dL (0.55-1.3)
[2022-03-28 09:58] LABS: BILIRUBIN,TOTAL 0.2 mg/dL (0.2-1); TOT PROT 6.3 g/dl (6.4-8.2)
[2022-03-29] MEDS: SODIUM CHLORIDE 1,000 ML IV SCH ×2 (02:32→12:50)
[2022-03-29] MEDS ORDERED: methaDONE HCL 10 MG TABLET ONE (04:48)
[2022-03-29 10:08] LABS: BASO % 0.4 % (0-2.0); EOS % 17.8 % (0-4.5); HEMATOCRIT 33.2 % (35.4-49); LYMPH % 36.7 % (8-40); MCH 34.9 pg (25.7-33.7); MCHC 36.2 g/dl (32.0-35.9); MEAN CELL VOLUME 96.2 fl (80-96); MEAN PLT VOLUME 7.7 fl (7.5-11.1); MONO % 7.6 % (3.8-10.2); NEUT % 37.5 % (42.8-82.8); PLATELET COUNT 200 10^3/uL (134-434); RBC 3.46 M/mm3 (4.00-5.60); RDW 13.5 % (11.9-15.9); WHITE BLOOD COUNT 4.4 K/mm3 (4.0-10.0)
[2022-03-29 10:32] LABS: ALBUMIN 3.1 g/dl (3.4-5.0); BLOOD UREA NITROGEN 17.9 mg/dL (7-18); CALCIUM 8.8 mg/dL (8.5-10.1); MAGNESIUM 1.9 mg/dL (1.8-2.4)
[2022-03-29 10:34] LABS: CREATININE 0.6 mg/dL (0.55-1.3)
[2022-03-29 10:35] LABS: BILIRUBIN,TOTAL 0.3 mg/dL (0.2-1)
[2022-03-29] MEDS: ENOXAPARIN NA (PORCINE) 40 MG/0.4 ML DISP.SYRIN SQ SCH (11:00)
[2022-03-29] MEDS: FOLIC ACID 1 MG TABLET (FP) PO SCH (11:00)
[2022-03-29] MEDS: levETIRAcetam 500 MG TABLET (FP) PO SCH ×2 (11:00→21:47)
[2022-03-29] MEDS: THIAMINE HCL 100 MG TABLET (FP) PO SCH (11:00)
[2022-03-29] MEDS: COLLAGENASE CLOSTRIDIUM HIST. 30 GRAMS TUBE TP SCH (11:15)
[2022-03-29] MEDS: VANCOMYCIN/WATER FOR INJ (PEG) 1,000 MG/200 ML BAG IVPB SCH ×2 (15:28→20:17)
[2022-03-30] MEDS: SODIUM CHLORIDE 1,000 ML IV SCH ×2 (02:00→13:17)
[2022-03-30] MEDS: VANCOMYCIN/WATER FOR INJ (PEG) 1,000 MG/200 ML BAG IVPB SCH ×2 (08:26→21:56)
[2022-03-30] MEDS: levETIRAcetam 500 MG TABLET (FP) PO SCH ×2 (09:41→21:56)
[2022-03-30] MEDS: COLLAGENASE CLOSTRIDIUM HIST. 30 GRAMS TUBE TP SCH (09:41)
[2022-03-30] MEDS: THIAMINE HCL 100 MG TABLET (FP) PO SCH (09:41)
[2022-03-30] MEDS: ENOXAPARIN NA (PORCINE) 40 MG/0.4 ML DISP.SYRIN SQ SCH (09:41)
[2022-03-30] MEDS: FOLIC ACID 1 MG TABLET (FP) PO SCH (09:41)
[2022-03-30 09:54] LABS: HEMATOCRIT 33.4 % (35.4-49); HEMOGLOBIN 11.4 GM/dL (11.7-16.9); MCH 32.6 pg (25.7-33.7); MEAN CELL VOLUME 95.9 fl (80-96); PLATELET COUNT 214 10^3/uL (134-434); RBC 3.49 M/mm3 (4.00-5.60); RDW 13.7 % (11.9-15.9); WHITE BLOOD COUNT 4.7 K/mm3 (4.0-10.0)
[2022-03-30 10:21] LABS: CALCIUM 8.5 mg/dL (8.5-10.1)
[2022-03-30 10:23] LABS: ALBUMIN 2.9 g/dl (3.4-5.0); BLOOD UREA NITROGEN 18.6 mg/dL (7-18); MAGNESIUM 1.9 mg/dL (1.8-2.4)
[2022-03-30 10:25] LABS: BILIRUBIN,TOTAL 0.2 mg/dL (0.2-1); CREATININE 0.6 mg/dL (0.55-1.3)
[2022-03-30 10:26] LABS: TOT PROT 6.6 g/dl (6.4-8.2)
[2022-03-30] MEDS: NICOTINE 14 MG/24 HOURS TOPICAL PATCH TD SCH (10:26)
[2022-03-30 11:02] LABS: ANISOCYTOSIS 1+; MACROCYTOSIS 1+
[2022-03-30] MEDS ORDERED: AMMONIUM LACTATE 12% LOTION 225 GM BOTTLE TP PRN (13:15)
[2022-03-30] MEDS ORDERED: BACITRACIN 15 GM TUBE TOPICAL OINTMENT TP SCH (13:30)
[2022-03-30 22:41] VITALS: RESP 20
[2022-03-31 09:38] LABS: HEMATOCRIT 34.5 % (35.4-49); MCH 33.1 pg (25.7-33.7); MCHC 34.7 g/dl (32.0-35.9); MEAN CELL VOLUME 95.4 fl (80-96); MEAN PLT VOLUME 8.1 fl (7.5-11.1); PLATELET COUNT 215 10^3/uL (134-434); RBC 3.61 M/mm3 (4.00-5.60); RDW 13.2 % (11.9-15.9); WHITE BLOOD COUNT 4.9 K/mm3 (4.0-10.0)
[2022-03-31] MEDS: ENOXAPARIN NA (PORCINE) 40 MG/0.4 ML DISP.SYRIN SQ SCH (09:58)
[2022-03-31] MEDS: VANCOMYCIN/WATER FOR INJ (PEG) 1,000 MG/200 ML BAG IVPB SCH ×2 (09:58→20:58)
[2022-03-31] MEDS: FOLIC ACID 1 MG TABLET (FP) PO SCH (09:59)
[2022-03-31] MEDS: CALCIUM ACETATE/AL SULFATE TOP 1.9 GM/PACKET PACKET TP SCH (09:59)
[2022-03-31] MEDS: NICOTINE 14 MG/24 HOURS TOPICAL PATCH TD SCH (09:59)
[2022-03-31] MEDS: COLLAGENASE CLOSTRIDIUM HIST. 30 GRAMS TUBE TP SCH (09:59)
[2022-03-31] MEDS: THIAMINE HCL 100 MG TABLET (FP) PO SCH (09:59)
[2022-03-31] MEDS: levETIRAcetam 500 MG TABLET (FP) PO SCH ×2 (09:59→21:01)
[2022-03-31 10:03] LABS: CALCIUM 8.9 mg/dL (8.5-10.1)
[2022-03-31 10:04] LABS: ALBUMIN 3.1 g/dl (3.4-5.0); BLOOD UREA NITROGEN 18.5 mg/dL (7-18); MAGNESIUM 1.8 mg/dL (1.8-2.4)
[2022-03-31 10:07] LABS: CREATININE 0.6 mg/dL (0.55-1.3)
[2022-03-31 10:08] LABS: BILIRUBIN,TOTAL 0.3 mg/dL (0.2-1)
[2022-03-31 12:30] LABS: ANISOCYTOSIS 2+; MACROCYTOSIS 1+; PLATELET ESTIMATE NORMAL
[2022-04-01] MEDS: ENOXAPARIN NA (PORCINE) 40 MG/0.4 ML DISP.SYRIN SQ SCH (10:53)
[2022-04-01] MEDS: NICOTINE 14 MG/24 HOURS TOPICAL PATCH TD SCH (10:53)
[2022-04-01] MEDS: levETIRAcetam 500 MG TABLET (FP) PO SCH (10:54)
[2022-04-01] MEDS: FOLIC ACID 1 MG TABLET (FP) PO SCH (10:54)
[2022-04-01] MEDS: THIAMINE HCL 100 MG TABLET (FP) PO SCH (10:54)
[2022-04-01] MEDS: CALCIUM ACETATE/AL SULFATE TOP 1.9 GM/PACKET PACKET TP SCH (10:55)
[2022-04-01] MEDS: COLLAGENASE CLOSTRIDIUM HIST. 30 GRAMS TUBE TP SCH (10:56)
[2022-04-01 16:57] VITALS: BP 95/62; PULSE 62; TEMP 97.8
[2022-04-01] MEDS ORDERED: DOXYCYCLINE HYCLATE 100 MG CAPSULE PO SCH (18:00)
== END 2022-04-01 18:45 | disposition left against medical advice (07) | DRG 383 ==
LOC: JER 19:37 → JERBED 20:52 → J7W 03-23 10:59
PROVIDERS: ADMIT Internal Medicine; ATTEND Nurse Practitioner Acute Care
DX: L03.115 Cellulitis of right lower limb (principal); K21.9 Gastro-esophageal reflux disease without esophagitis; I45.10 Unspecified right bundle-branch block; G82.54 Quadriplegia, C5-C7 incomplete; F31.9 Bipolar disorder, unspecified; L97.919 Non-pressure chronic ulcer of unspecified part of right lower leg with unspecified severity; D64.9 Anemia, unspecified; G40.909 Epilepsy, unspecified, not intractable, without status epilepticus; F11.20 Opioid dependence, uncomplicated; F10.230 Alcohol dependence with withdrawal, uncomplicated
CPT/HCPCS: 36415; 73590-TC-RT-FY; 73610-TC-RT-FY; 80053; 80307; 81003; 82728; 83540; 83550; 83735; 83880; 84100; 84466; 85025; 85045; 85651; 86140; 87040; 87070; 87086; 87186; 87205; 93005; 93010; 93970-TC; 97116-GP; 97161-GP; 99285-25; C9803-CS; G0480; U0003; U0005

== ENCOUNTER 2022-10-20 14:26 | Inpatient (IN) | payer OTHER ==
[2022-10-20 15:20] VITALS: BMI 19.5
[2022-10-20] MEDS ORDERED: hydrOXYzine PAMOATE 25 MG CAPSULE (FP) PO PRN (15:56)
[2022-10-20] MEDS ORDERED: LOPERAMIDE HCL 2 MG CAPSULE PO PRN (15:56)
[2022-10-20] MEDS ORDERED: NALOXONE HCL (KLOXXADO) 8 MG SPRAY NS PRN (15:56)
[2022-10-20] MEDS ORDERED: MELATONIN 5 MG TABLETS PO PRN (15:56)
[2022-10-20] MEDS ORDERED: BISMUTH SUBSALICYLATE 524 MG/30 ML PO PRN (15:56)
[2022-10-20] MEDS ORDERED: BENZONATATE 200 MG CAPSULE PO PRN (15:56)
[2022-10-20] MEDS ORDERED: POLYETHYLENE GLYCOL (HEALTHYLAX) 3350 17 GM PACKET PO PRN (15:56)
[2022-10-20] MEDS ORDERED: IBUPROFEN 400 MG TABLET (FP) PO PRN (15:56)
[2022-10-20] MEDS ORDERED: ACETAMINOPHEN 325 MG TABLET (FP) PO PRN ×2 (15:56)
[2022-10-20] MEDS ORDERED: BENZOCAINE/MENTHOL (CHLORASEPTIC ) LOZENGE MM PRN (15:56)
[2022-10-20] MEDS ORDERED: DICYCLOMINE HCL 10 MG CAPSULE PO PRN (15:56)
[2022-10-20] MEDS ORDERED: guaiFENesin 600 MG TABLET.ER (FP) PO PRN (15:56)
[2022-10-20] MEDS ORDERED: IBUPROFEN 600 MG TABLET (FP) PO PRN (15:56)
[2022-10-20] MEDS ORDERED: P-EPHED 60MG/TRIPROLIDI 2.5MG TABLET PO PRN (15:56)
[2022-10-20] MEDS ORDERED: NICOTINE POLACRILEX 2 MG GUM BUC PRN (15:56)
[2022-10-20] MEDS ORDERED: NALOXONE HCL 0.4 MG/ML VIAL IM PRN (15:56)
[2022-10-20] MEDS ORDERED: ONDANSETRON *ODT* 4 MG TABLET SL PRN (15:56)
[2022-10-20] MEDS ORDERED: MAG HYDROX/AL HYDROX/SIMETH 30 ML UNIT-DOSE CUP PO PRN (15:56)
[2022-10-20] MEDS ORDERED: MAGNESIUM HYDROX 2400MG/30ML ORAL SUSPENSION 30 ML CUP PO PRN (15:56)
[2022-10-20] MEDS ORDERED: FOLIC ACID 1 MG TABLET (FP) PO SCH (16:00)
[2022-10-20] MEDS ORDERED: diazePAM 5 MG TABLET PO PRN (17:31)
[2022-10-20] MEDS: FOLIC ACID 1 MG TABLET (FP) PO SCH (17:57)
[2022-10-20] MEDS: THIAMINE HCL 100 MG TABLET (FP) PO SCH ×2 (17:58→22:40)
[2022-10-20] MEDS: COLLAGENASE CLOSTRIDIUM HIST. 30 GRAMS TUBE TP SCH (17:59)
[2022-10-20] MEDS: DOXYCYCLINE HYCLATE 100 MG CAPSULE PO SCH (19:09)
[2022-10-20] MEDS: levETIRAcetam 500 MG TABLET (FP) PO SCH (22:39)
[2022-10-20] MEDS: BACITRACIN 0.9 GM PACKET TP SCH (22:39)
[2022-10-21] MEDS ORDERED: methaDONE HCL 10 MG TABLET PO ONE (07:48)
[2022-10-21] MEDS: levETIRAcetam 500 MG TABLET (FP) PO SCH ×2 (09:08→22:23)
[2022-10-21] MEDS: DOXYCYCLINE HYCLATE 100 MG CAPSULE PO SCH ×2 (09:08→17:35)
[2022-10-21] MEDS: FOLIC ACID 1 MG TABLET (FP) PO SCH (09:08)
[2022-10-21] MEDS: COLLAGENASE CLOSTRIDIUM HIST. 30 GRAMS TUBE TP SCH (09:09)
[2022-10-21] MEDS: NICOTINE 14 MG/24 HOURS TOPICAL PATCH TD SCH (09:09)
[2022-10-21] MEDS: PRENATAL VITAMINS W/ FOLIC ACID TABLET (FP) PO SCH (09:09)
[2022-10-21] MEDS: BACITRACIN 0.9 GM PACKET TP SCH ×2 (09:09→22:23)
[2022-10-21] MEDS: THIAMINE HCL 100 MG TABLET (FP) PO SCH ×2 (09:10→22:23)
[2022-10-21] MEDS ORDERED: LORazepam 1 MG TABLET PO PRN (10:27)
[2022-10-21] MEDS: LORazepam 2 MG TABLET PO SCH ×3 (11:28→22:30)
[2022-10-21 16:53] LABS: HEMATOCRIT 31.9 % (35.4-49); HEMOGLOBIN 11.5 GM/dL (11.7-16.9); MCH 33.4 pg (25.7-33.7); MCHC 35.9 g/dl (32.0-35.9); MEAN CELL VOLUME 93.1 fl (80-96); MEAN PLT VOLUME 8.6 fl (7.5-11.1); PLATELET COUNT 166 10^3/uL (134-434); RBC 3.43 M/mm3 (4.00-5.60); RDW 14.1 % (11.9-15.9); WHITE BLOOD COUNT 4.9 K/mm3 (4.0-10.0)
[2022-10-21 16:56] LABS: POTASSIUM 4.8 mmol/L (3.5-5.1)
[2022-10-21 17:01] LABS: ALBUMIN 2.8 g/dl (3.4-5.0); BLOOD UREA NITROGEN 11.8 mg/dL (7-18); CALCIUM 9.1 mg/dL (8.5-10.1)
[2022-10-21 17:03] LABS: CREATININE 0.5 mg/dL (0.55-1.3)
[2022-10-21 17:05] LABS: BILIRUBIN,TOTAL 0.4 mg/dL (0.2-1); TOT PROT 6.6 g/dl (6.4-8.2)
[2022-10-22] MEDS ORDERED: methaDONE HCL 10 MG TABLET PO SCH ×2 (06:00)
[2022-10-22] MEDS: DOXYCYCLINE HYCLATE 100 MG CAPSULE PO SCH ×2 (09:44→18:01)
[2022-10-22] MEDS: BACITRACIN 0.9 GM PACKET TP SCH ×2 (09:44→22:55)
[2022-10-22] MEDS: levETIRAcetam 500 MG TABLET (FP) PO SCH ×2 (09:46→22:41)
[2022-10-22] MEDS: NICOTINE 14 MG/24 HOURS TOPICAL PATCH TD SCH (09:46)
[2022-10-22] MEDS: FOLIC ACID 1 MG TABLET (FP) PO SCH (09:46)
[2022-10-22] MEDS: PRENATAL VITAMINS W/ FOLIC ACID TABLET (FP) PO SCH (09:46)
[2022-10-22] MEDS: THIAMINE HCL 100 MG TABLET (FP) PO SCH ×2 (09:46→22:41)
[2022-10-22] MEDS: COLLAGENASE CLOSTRIDIUM HIST. 30 GRAMS TUBE TP SCH (09:47)
[2022-10-22] MEDS ORDERED: FLUoxetine HCL 20 MG CAPSULE PO SCH (10:00)
[2022-10-22] MEDS ORDERED: methaDONE HCL 40 MG DISPERSABLE TABLET PO SCH (11:36)
[2022-10-22] MEDS ORDERED: methaDONE HCL 40 MG DISPERSABLE TABLET PO ONE (12:45)
[2022-10-22] MEDS: LORazepam 0.5 MG TABLET PO SCH ×2 (17:59→23:14)
[2022-10-22] MEDS ORDERED: LORazepam 0.5 MG TABLET PO PRN (22:53)
[2022-10-23] MEDS ORDERED: methaDONE HCL 40 MG DISPERSABLE TABLET PO SCH (06:00)
[2022-10-23] MEDS: PRENATAL VITAMINS W/ FOLIC ACID TABLET (FP) PO SCH (09:21)
[2022-10-23] MEDS: BACITRACIN 0.9 GM PACKET TP SCH (09:21)
[2022-10-23] MEDS: COLLAGENASE CLOSTRIDIUM HIST. 30 GRAMS TUBE TP SCH (09:21)
[2022-10-23] MEDS: FOLIC ACID 1 MG TABLET (FP) PO SCH (09:21)
[2022-10-23] MEDS: levETIRAcetam 500 MG TABLET (FP) PO SCH ×2 (09:21→22:53)
[2022-10-23] MEDS: NICOTINE 14 MG/24 HOURS TOPICAL PATCH TD SCH (09:21)
[2022-10-23] MEDS: THIAMINE HCL 100 MG TABLET (FP) PO SCH ×2 (09:22→22:53)
[2022-10-23] MEDS: DOXYCYCLINE HYCLATE 100 MG CAPSULE PO SCH (09:22)
[2022-10-23] MEDS ORDERED: COLLAGENASE CLOSTRIDIUM HIST. 30 GRAMS TUBE TP SCH (11:30)
[2022-10-23] MEDS: SULFAMETHOXAZOLE/TRIMETHOPRIM 800MG/160MG D.S. TABLET PO SCH ×2 (11:32→22:52)
[2022-10-23] MEDS: LORazepam 0.5 MG TABLET PO SCH ×3 (11:53→23:42)
[2022-10-23 17:15] VITALS: BP 107/71; PULSE 66; RESP 18; TEMP 96.7
[2022-10-24] MEDS ORDERED: LORazepam 0.5 MG TABLET PO PRN
[2022-10-25] MEDS ORDERED: LORazepam 0.5 MG TABLET PO ONE (05:00)
== END 2022-10-23 23:47 | disposition short-term general hospital (02) | DRG 774 ==
LOC: YASAS 14:26 → Y3N 15:58
PROVIDERS: ADMIT Allergy & Immunology; ATTEND Surgery
PROC: HZ2ZZZZ Detoxification Services for Substance Abuse Treatment (ICD-10-PCS; principal; 2022-10-20)
DX: F10.230 Alcohol dependence with withdrawal, uncomplicated (principal); F10.20 Alcohol dependence, uncomplicated; F14.20 Cocaine dependence, uncomplicated; F17.210 Nicotine dependence, cigarettes, uncomplicated; F31.9 Bipolar disorder, unspecified; G82.54 Quadriplegia, C5-C7 incomplete; G40.909 Epilepsy, unspecified, not intractable, without status epilepticus; K21.9 Gastro-esophageal reflux disease without esophagitis; L03.115 Cellulitis of right lower limb; R29.6 Repeated falls; R26.89 Other abnormalities of gait and mobility; Z22.322 Carrier or suspected carrier of Methicillin resistant Staphylococcus aureus; Z87.828 Personal history of other (healed) physical injury and trauma; Z88.8 Allergy status to other drugs, medicaments and biological substances
CPT/HCPCS: 36415; 80053; 85027; 86780; 87070; 87186; 87205; 87811; 93005; 93010; C9803-CS; U0003; U0005

== ENCOUNTER 2022-10-23 19:07 | Inpatient (IN) | payer OTHER ==
[2022-10-23 20:49] LABS: BASO % 0.5 % (0-2.0); EOS % 17.7 % (0-4.5); HEMATOCRIT 30.3 % (35.4-49); HEMOGLOBIN 10.5 GM/dL (11.7-16.9); LYMPH % 36.4 % (8-40); MCH 32.2 pg (25.7-33.7); MCHC 34.7 g/dl (32.0-35.9); MEAN CELL VOLUME 92.8 fl (80-96); MEAN PLT VOLUME 7.7 fl (7.5-11.1); MONO % 10.1 % (3.8-10.2); NEUT % 35.3 % (42.8-82.8); PLATELET COUNT 155 10^3/uL (134-434); RBC 3.27 M/mm3 (4.00-5.60); RDW 14.2 % (11.9-15.9)
[2022-10-23 21:04] LABS: POTASSIUM 4.3 mmol/L (3.5-5.1)
[2022-10-23 21:06] LABS: ALBUMIN 2.8 g/dl (3.4-5.0); BLOOD UREA NITROGEN 13.4 mg/dL (7-18); CALCIUM 8.8 mg/dL (8.5-10.1)
[2022-10-23 21:09] LABS: CREATININE 0.5 mg/dL (0.55-1.3)
[2022-10-23 21:11] LABS: BILIRUBIN,TOTAL 0.2 mg/dL (0.2-1); TOT PROT 6.1 g/dl (6.4-8.2)
[2022-10-23] MEDS ORDERED: VANCOMYCIN 1,000 MG in DEXTROSE 5%-WATER - 250 ML IVPB ONE (21:23)
[2022-10-23] MEDS ORDERED: VANCOMYCIN/WATER FOR INJ (PEG) 1,000 MG/200 ML BAG IVPB ONE (23:32)
[2022-10-24 06:09] VITALS: BMI 19.9
[2022-10-24] MEDS ORDERED: VANCOMYCIN/WATER 1250 MG 1,250 MG/250 ML BAG IVPB SCH (08:00)
[2022-10-24] MEDS ORDERED: VANCOMYCIN/WATER 1,250 MG/250 ML BAG (RESTRICTED TO ID ONLY) IVPB SCH (08:00)
[2022-10-24] MEDS ORDERED: methaDONE HCL 40 MG DISPERSABLE TABLET PO SCH (09:00)
[2022-10-24 09:04] LABS: HEMATOCRIT 32.2 % (35.4-49); HEMOGLOBIN 11.4 GM/dL (11.7-16.9); MCHC 35.5 g/dl (32.0-35.9); MEAN CELL VOLUME 92.8 fl (80-96); MEAN PLT VOLUME 8.7 fl (7.5-11.1); PLATELET COUNT 161 10^3/uL (134-434); RBC 3.47 M/mm3 (4.00-5.60); RDW 13.9 % (11.9-15.9); WHITE BLOOD COUNT 4.3 K/mm3 (4.0-10.0)
[2022-10-24 09:19] LABS: CHLORIDE 106 mmol/L (98-107); POTASSIUM 4.5 mmol/L (3.5-5.1); SODIUM 142 mmol/L (136-145)
[2022-10-24 09:22] LABS: ALBUMIN 2.8 g/dl (3.4-5.0); ANION GAP 4 MMOL/L (8-16); CALCIUM 8.9 mg/dL (8.5-10.1); CO2 32 mmol/L (21-32); GLUCOSE,RANDOM 106 mg/dL (74-106); MAGNESIUM 1.9 mg/dL (1.8-2.4)
[2022-10-24 09:25] LABS: CREATININE 0.6 mg/dL (0.55-1.3); PHOSPHOROUS 3.9 mg/dL (2.5-4.9); SGOT/AST 20 U/L (15-37); SGPT/ALT 14 U/L (13-61)
[2022-10-24 09:27] LABS: BILIRUBIN,TOTAL 0.4 mg/dL (0.2-1); TOT PROT 6.4 g/dl (6.4-8.2)
[2022-10-24 09:28] LABS: ALK PHOS 73 U/L (45-117)
[2022-10-24] MEDS: GABAPENTIN 300 MG CAPSULE PO SCH ×2 (10:02→21:36)
[2022-10-24] MEDS: BACLOFEN 10 MG TABLET (FP) PO SCH ×2 (10:02→21:36)
[2022-10-24] MEDS: ENOXAPARIN NA (PORCINE) 40 MG/0.4 ML DISP.SYRIN SQ SCH (10:02)
[2022-10-24] MEDS: THIAMINE HCL 100 MG TABLET (FP) PO SCH (10:02)
[2022-10-24] MEDS: FLUoxetine HCL 20 MG CAPSULE PO SCH (10:03)
[2022-10-24] MEDS: levETIRAcetam 500 MG TABLET (FP) PO SCH ×2 (10:03→21:36)
[2022-10-24] MEDS: FOLIC ACID 1 MG TABLET (FP) PO SCH (10:03)
[2022-10-24 10:23] LABS: ERYTHROCYTE SEDIMENTATION RATE 18 mm/hr (0-20)
[2022-10-24] MEDS: LORazepam 1 MG TABLET PO PRN ×2 (13:33→21:51)
[2022-10-25] MEDS: methaDONE HCL 40 MG DISPERSABLE TABLET PO SCH (06:45)
[2022-10-25 08:17] LABS: HEMATOCRIT 33.8 % (35.4-49); MCH 33.2 pg (25.7-33.7); MCHC 35.6 g/dl (32.0-35.9); MEAN CELL VOLUME 93.3 fl (80-96); MEAN PLT VOLUME 8.6 fl (7.5-11.1); PLATELET COUNT 164 10^3/uL (134-434); RBC 3.62 M/mm3 (4.00-5.60); RDW 14.1 % (11.9-15.9)
[2022-10-25 08:27] LABS: POTASSIUM 4.8 mmol/L (3.5-5.1)
[2022-10-25 08:33] LABS: BLOOD UREA NITROGEN 13.2 mg/dL (7-18); CALCIUM 9.2 mg/dL (8.5-10.1); MAGNESIUM 1.9 mg/dL (1.8-2.4)
[2022-10-25 08:35] LABS: CREATININE 0.6 mg/dL (0.55-1.3)
[2022-10-25] MEDS: VANCOMYCIN/WATER 1250 MG 1,250 MG/250 ML BAG IVPB SCH (08:55)
[2022-10-25] MEDS ORDERED: methaDONE HCL 40 MG DISPERSABLE TABLET PO SCH (09:00)
[2022-10-25] MEDS: FLUoxetine HCL 20 MG CAPSULE PO SCH (11:24)
[2022-10-25] MEDS: GABAPENTIN 300 MG CAPSULE PO SCH ×2 (11:24→22:33)
[2022-10-25] MEDS: BACLOFEN 10 MG TABLET (FP) PO SCH ×2 (11:25→22:33)
[2022-10-25] MEDS: THIAMINE HCL 100 MG TABLET (FP) PO SCH (11:25)
[2022-10-25] MEDS: FOLIC ACID 1 MG TABLET (FP) PO SCH (11:25)
[2022-10-25] MEDS: ENOXAPARIN NA (PORCINE) 40 MG/0.4 ML DISP.SYRIN SQ SCH (11:25)
[2022-10-25] MEDS: levETIRAcetam 500 MG TABLET (FP) PO SCH ×2 (11:25→22:33)
[2022-10-26] MEDS ORDERED: LORazepam 0.5 MG TABLET PO PRN
[2022-10-26] MEDS: methaDONE HCL 40 MG DISPERSABLE TABLET PO SCH (06:07)
[2022-10-26] MEDS: FLUoxetine HCL 20 MG CAPSULE PO SCH (09:13)
[2022-10-26] MEDS: BACLOFEN 10 MG TABLET (FP) PO SCH ×2 (09:14→21:11)
[2022-10-26] MEDS: GABAPENTIN 300 MG CAPSULE PO SCH ×2 (09:14→21:11)
[2022-10-26] MEDS: levETIRAcetam 500 MG TABLET (FP) PO SCH ×2 (09:14→21:11)
[2022-10-26] MEDS: FOLIC ACID 1 MG TABLET (FP) PO SCH (09:14)
[2022-10-26] MEDS: THIAMINE HCL 100 MG TABLET (FP) PO SCH (09:14)
[2022-10-26] MEDS: ENOXAPARIN NA (PORCINE) 40 MG/0.4 ML DISP.SYRIN SQ SCH (09:15)
[2022-10-26 10:28] LABS: POTASSIUM 4.2 mmol/L (3.5-5.1)
[2022-10-26 10:33] LABS: CALCIUM 9.3 mg/dL (8.5-10.1)
[2022-10-26 10:34] LABS: BLOOD UREA NITROGEN 15.2 mg/dL (7-18)
[2022-10-26 10:37] LABS: CREATININE 0.5 mg/dL (0.55-1.3)
[2022-10-26] MEDS: LORATADINE 10 MG TABLET PO SCH (12:47)
[2022-10-26] MEDS: NICOTINE 21 MG/24 HOURS TOPICAL PATCH TD SCH (12:47)
[2022-10-26] MEDS: FLUTICASONE PROP 0.05% 16 GM NASAL SPRAY NS SCH (13:02)
[2022-10-26] MEDS: VANCOMYCIN/WATER 1250 MG 1,250 MG/250 ML BAG IVPB SCH (13:07)
[2022-10-26 14:49] VITALS: RESP 18
[2022-10-26] MEDS: CEFTRIAXONE 1 GM in DEXTROSE 5%-WATER - 50 ML IVPB SCH (17:38)
[2022-10-26] MEDS: MULTIVITAMINS THER W-MINERALS COMBO TABLET (FP) PO SCH (21:09)
[2022-10-26] MEDS ORDERED: ACETAMINOPHEN 500 MG TABLET (FP) PO ONE (21:45)
[2022-10-27] MEDS: VANCOMYCIN/WATER 1250 MG 1,250 MG/250 ML BAG IVPB SCH ×3 (00:55→23:48)
[2022-10-27] MEDS: methaDONE HCL 40 MG DISPERSABLE TABLET PO SCH (05:45)
[2022-10-27] MEDS ORDERED: LORazepam 0.5 MG TABLET PO ONE (06:00)
[2022-10-27 09:33] LABS: BASO % 0.4 % (0-2.0); EOS % 13.5 % (0-4.5); HEMOGLOBIN 10.7 GM/dL (11.7-16.9); LYMPH % 26.9 % (8-40); MCH 33.5 pg (25.7-33.7); MCHC 35.8 g/dl (32.0-35.9); MEAN CELL VOLUME 93.6 fl (80-96); MEAN PLT VOLUME 8.7 fl (7.5-11.1); MONO % 9.2 % (3.8-10.2); PLATELET COUNT 148 10^3/uL (134-434); RDW 14.2 % (11.9-15.9); WHITE BLOOD COUNT 5.5 K/mm3 (4.0-10.0)
[2022-10-27] MEDS: FLUoxetine HCL 20 MG CAPSULE PO SCH (10:00)
[2022-10-27 10:08] LABS: POTASSIUM 4.6 mmol/L (3.5-5.1)
[2022-10-27 10:16] LABS: CALCIUM 9.5 mg/dL (8.5-10.1)
[2022-10-27 10:18] LABS: ALBUMIN 2.8 g/dl (3.4-5.0)
[2022-10-27 10:21] LABS: CREATININE 0.5 mg/dL (0.55-1.3)
[2022-10-27 10:23] LABS: BILIRUBIN,TOTAL 0.4 mg/dL (0.2-1); TOT PROT 6.5 g/dl (6.4-8.2)
[2022-10-27] MEDS: BACLOFEN 10 MG TABLET (FP) PO SCH ×2 (10:39→21:49)
[2022-10-27] MEDS: THIAMINE HCL 100 MG TABLET (FP) PO SCH (10:39)
[2022-10-27] MEDS: LORATADINE 10 MG TABLET PO SCH (10:39)
[2022-10-27] MEDS: levETIRAcetam 500 MG TABLET (FP) PO SCH ×2 (10:39→21:49)
[2022-10-27] MEDS: MULTIVITAMINS THER W-MINERALS COMBO TABLET (FP) PO SCH (10:39)
[2022-10-27] MEDS: FOLIC ACID 1 MG TABLET (FP) PO SCH (10:39)
[2022-10-27] MEDS: GABAPENTIN 300 MG CAPSULE PO SCH ×2 (10:40→21:49)
[2022-10-27] MEDS: NICOTINE 21 MG/24 HOURS TOPICAL PATCH TD SCH (10:41)
[2022-10-27] MEDS: ENOXAPARIN NA (PORCINE) 40 MG/0.4 ML DISP.SYRIN SQ SCH (10:41)
[2022-10-27] MEDS: CEFTRIAXONE 1 GM in DEXTROSE 5%-WATER - 50 ML IVPB SCH (10:44)
[2022-10-27] MEDS: FLUTICASONE PROP 0.05% 16 GM NASAL SPRAY NS SCH (10:50)
[2022-10-28] MEDS: methaDONE HCL 40 MG DISPERSABLE TABLET PO SCH (06:28)
[2022-10-28] MEDS: LORATADINE 10 MG TABLET PO SCH (09:33)
[2022-10-28] MEDS: levETIRAcetam 500 MG TABLET (FP) PO SCH (09:33)
[2022-10-28] MEDS: BACLOFEN 10 MG TABLET (FP) PO SCH (09:33)
[2022-10-28] MEDS: ENOXAPARIN NA (PORCINE) 40 MG/0.4 ML DISP.SYRIN SQ SCH (09:33)
[2022-10-28] MEDS: CEFTRIAXONE 1 GM in DEXTROSE 5%-WATER - 50 ML IVPB SCH (09:33)
[2022-10-28] MEDS: THIAMINE HCL 100 MG TABLET (FP) PO SCH (09:33)
[2022-10-28] MEDS: FOLIC ACID 1 MG TABLET (FP) PO SCH (09:33)
[2022-10-28] MEDS: MULTIVITAMINS THER W-MINERALS COMBO TABLET (FP) PO SCH (09:33)
[2022-10-28] MEDS: GABAPENTIN 300 MG CAPSULE PO SCH (09:34)
[2022-10-28] MEDS: NICOTINE 21 MG/24 HOURS TOPICAL PATCH TD SCH (09:34)
[2022-10-28] MEDS: FLUoxetine HCL 20 MG CAPSULE PO SCH (09:34)
[2022-10-28] MEDS: FLUTICASONE PROP 0.05% 16 GM NASAL SPRAY NS SCH (10:14)
[2022-10-28] MEDS: VANCOMYCIN/WATER 1250 MG 1,250 MG/250 ML BAG IVPB SCH (13:13)
[2022-10-28 14:58] VITALS: BP 141/84; PULSE 68; TEMP 98
== END 2022-10-28 15:52 | disposition home or self-care (01) | DRG 383 ==
LOC: JER 19:07 → JERBED 22:56 → J6S 10-24 02:11
PROVIDERS: ADMIT Internal Medicine; ATTEND Internal Medicine
DX: L03.115 Cellulitis of right lower limb (principal); G82.50 Quadriplegia, unspecified; F10.20 Alcohol dependence, uncomplicated; F11.20 Opioid dependence, uncomplicated; L97.818 Non-pressure chronic ulcer of other part of right lower leg with other specified severity; K21.9 Gastro-esophageal reflux disease without esophagitis; F31.89 Other bipolar disorder; G40.909 Epilepsy, unspecified, not intractable, without status epilepticus; G95.89 Other specified diseases of spinal cord; F19.10 Other psychoactive substance abuse, uncomplicated; B19.20 Unspecified viral hepatitis C without hepatic coma; B96.1 Klebsiella pneumoniae [K. pneumoniae] as the cause of diseases classified elsewhere; B95.62 Methicillin resistant Staphylococcus aureus infection as the cause of diseases classified elsewhere; B96.89 Other specified bacterial agents as the cause of diseases classified elsewhere
CPT/HCPCS: 0241U-QW; 36415; 71045-TC-FY; 73590-TC-RT-FY; 80048; 80053; 83735; 84100; 85025; 85027; 85651; 86140; 87040; 87070; 87186; 87205; 93005; 93010; 93926-TC; 93971-TC; 99285-25; G0480; J0475

== ENCOUNTER 2023-07-17 14:03 | Inpatient (IN) | payer OTHER ==
[2023-07-17 14:36] VITALS: BMI 18.9
[2023-07-17] MEDS ORDERED: ONDANSETRON *ODT* 4 MG TABLET SL PRN (15:41)
[2023-07-17] MEDS ORDERED: NALOXONE HCL 0.4 MG/ML VIAL IM PRN (15:41)
[2023-07-17] MEDS ORDERED: NALOXONE HCL (KLOXXADO) 8 MG SPRAY NS PRN (15:41)
[2023-07-17] MEDS ORDERED: MAGNESIUM HYDROX 2400MG/30ML ORAL SUSPENSION 30 ML CUP PO PRN (15:41)
[2023-07-17] MEDS ORDERED: DICYCLOMINE HCL 10 MG CAPSULE PO PRN (15:41)
[2023-07-17] MEDS ORDERED: hydrOXYzine PAMOATE 25 MG CAPSULE (FP) PO PRN (15:41)
[2023-07-17] MEDS ORDERED: BENZOCAINE/MENTHOL (CHLORASEPTIC ) LOZENGE MM PRN (15:41)
[2023-07-17] MEDS ORDERED: MAG HYDROX/AL HYDROX/SIMETH 30 ML UNIT-DOSE CUP PO PRN (15:41)
[2023-07-17] MEDS ORDERED: NICOTINE POLACRILEX 2 MG GUM BUC PRN (15:41)
[2023-07-17] MEDS ORDERED: POLYETHYLENE GLYCOL (HEALTHYLAX) 3350 17 GM PACKET PO PRN (15:41)
[2023-07-17] MEDS ORDERED: guaiFENesin 600 MG TABLET.ER (FP) PO PRN (15:41)
[2023-07-17] MEDS ORDERED: BENZONATATE 200 MG CAPSULE PO PRN (15:41)
[2023-07-17] MEDS ORDERED: BISMUTH SUBSALICYLATE 524 MG/30 ML PO PRN (15:41)
[2023-07-17] MEDS ORDERED: LOPERAMIDE HCL 2 MG CAPSULE PO PRN (15:41)
[2023-07-17] MEDS ORDERED: IBUPROFEN 400 MG TABLET (FP) PO PRN (15:41)
[2023-07-17] MEDS: chlordiazePOXIDE HCL 25 MG CAPSULE PO SCH (17:58)
[2023-07-17] MEDS: THIAMINE HCL 100 MG TABLET (FP) PO SCH (22:19)
[2023-07-17] MEDS: MELATONIN 5 MG TABLETS PO SCH (22:19)
[2023-07-18] MEDS ORDERED: methaDONE HCL 10 MG TABLET PO SCH (06:00)
[2023-07-18] MEDS: SILVER SULFADIAZINE 1% TOP CREAM 50 GM JAR TP SCH (10:04)
[2023-07-18] MEDS: levETIRAcetam 500 MG TABLET (FP) PO SCH (10:05)
[2023-07-18] MEDS: PRENATAL VITAMINS W/ FOLIC ACID TABLET (FP) PO SCH (10:05)
[2023-07-18] MEDS: NICOTINE 21 MG/24 HOURS TOPICAL PATCH TD SCH (10:05)
[2023-07-18 10:53] LABS: HEMATOCRIT 31.9 % (35.4-49); HEMOGLOBIN 10.9 GM/dL (11.7-16.9); MCH 34.2 pg (25.7-33.7); MCHC 34.1 g/dl (32.0-35.9); MEAN CELL VOLUME 100.2 fl (80-96); MEAN PLT VOLUME 8.3 fl (7.5-11.1); PLATELET COUNT 142 10^3/uL (134-434); RBC 3.18 M/mm3 (4.00-5.60); RDW 14.5 % (11.9-15.9); WHITE BLOOD COUNT 3.5 K/mm3 (4.0-10.0)
[2023-07-18 11:45] LABS: CHLORIDE 104 mmol/L (98-107); POTASSIUM 3.5 mmol/L (3.5-5.1); SODIUM 142 mmol/L (136-145)
[2023-07-18 11:50] LABS: CALCIUM 8.9 mg/dL (8.5-10.1)
[2023-07-18 11:52] LABS: ALBUMIN 2.7 g/dl (3.4-5.0); ANION GAP 4 mmol/L (4-13); CO2 33 mmol/L (21-32); GLUCOSE,RANDOM 107 mg/dL (74-106)
[2023-07-18 11:53] LABS: CREATININE 0.5 mg/dL (0.55-1.3); SGOT/AST 20 U/L (15-37)
[2023-07-18 11:54] LABS: SGPT/ALT 11 U/L (13-61)
[2023-07-18 11:55] LABS: BILIRUBIN,TOTAL 0.2 mg/dL (0.2-1); TOT PROT 6.5 g/dl (6.4-8.2)
[2023-07-18 11:56] LABS: ALK PHOS 100 U/L (45-117)
[2023-07-18] MEDS: chlordiazePOXIDE HCL 25 MG CAPSULE PO PRN (13:49)
[2023-07-18] MEDS: SULFAMETHOXAZOLE/TRIMETHOPRIM 800MG/160MG D.S. TABLET PO SCH (14:14)
[2023-07-18] MEDS: LIDOCAINE 4% PATCH TP SCH (14:17)
[2023-07-18] MEDS: BACITRACIN 0.9 GM PACKET TP SCH (14:19)
[2023-07-18] MEDS: IBUPROFEN 600 MG TABLET (FP) PO PRN (17:33)
[2023-07-18] MEDS: LIDOCAINE PATCH REMOVAL MC SCH (22:26)
[2023-07-18] MEDS: ACETAMINOPHEN 325 MG TABLET (FP) PO PRN (22:28)
[2023-07-19] MEDS: chlordiazePOXIDE HCL 25 MG CAPSULE PO SCH (05:33)
[2023-07-19] MEDS: FLUoxetine HCL 10 MG CAPSULE PO SCH (10:15)
[2023-07-20] MEDS ORDERED: chlordiazePOXIDE HCL 10 MG CAPSULE PO PRN
[2023-07-20] MEDS: chlordiazePOXIDE HCL 10 MG CAPSULE PO SCH (05:46)
[2023-07-21] MEDS: chlordiazePOXIDE HCL 10 MG CAPSULE PO SCH (05:35)
[2023-07-21] MEDS: METHOCARBAMOL 500 MG TABLET PO PRN (21:47)
[2023-07-22] MEDS: chlordiazePOXIDE HCL 10 MG CAPSULE PO ONE (05:42)
[2023-07-22 12:46] VITALS: BP 71/42; PULSE 75; RESP 16; TEMP 97.7
== END 2023-07-22 14:29 | disposition home or self-care (01) | DRG 773 ==
LOC: YASAS 14:03 → Y3N 16:48
PROVIDERS: ADMIT Allergy & Immunology; ATTEND Surgery
PROC: HZ2ZZZZ Detoxification Services for Substance Abuse Treatment (ICD-10-PCS; principal; 2023-07-17)
DX: F10.230 Alcohol dependence with withdrawal, uncomplicated (principal); F11.20 Opioid dependence, uncomplicated; F14.20 Cocaine dependence, uncomplicated; F17.210 Nicotine dependence, cigarettes, uncomplicated; F19.24 Other psychoactive substance dependence with psychoactive substance-induced mood disorder; G40.909 Epilepsy, unspecified, not intractable, without status epilepticus; K21.9 Gastro-esophageal reflux disease without esophagitis; G82.50 Quadriplegia, unspecified; L08.9 Local infection of the skin and subcutaneous tissue, unspecified; S91.301D Unspecified open wound, right foot, subsequent encounter; X58.XXXD Exposure to other specified factors, subsequent encounter; Z86.19 Personal history of other infectious and parasitic diseases; Z87.11 Personal history of peptic ulcer disease; Z88.0 Allergy status to penicillin
CPT/HCPCS: 36415; 80053; 80307; 85027; 86780; 87635